=== PATIENT | male | born 1930 | race Caucasian/White ===

== ENCOUNTER 2017-03-31 11:09 | Inpatient (IN) ==
[2017-03-31 13:08] LABS: Basophils % 0.1 %; Eosinophils # 0.1 K/mcL (0.0-0.6); Eosinophils % 0.6 %; Hematocrit 29.6 % (37.5-50.1); Hemoglobin 9.9 g/dL (12.9-16.9); Immature Granulocytes % 0.7 % (0-4); Immature Platelets 2.7 % (1.1-6.1); Lymphocytes # 1.4 K/mcL (0.6-4.6); Lymphocytes % 9.3 %; Mean Corpuscular HGB Conc 33.4 g/dL (31.6-35.5); Mean Corpuscular Hemoglobin 29.5 pg (28.0-33.3); Mean Corpuscular Volume 88.1 fL (83.0-100.0); Mean Platelet Volume 9.8 fL (9.4-12.4); Monocytes # 1.5 K/mcL (0.0-1.3); Monocytes % 9.7 %; Neutrophils # 12.2 K/mcL (1.6-8.9); Platelet Count 415 K/mcL (140-400); Red Blood Count 3.36 M/mcL (4.19-5.50); Red Cell Distribution Width 13.6 % (11.5-14.5); Segmented Neutrophils % 79.6 %
[2017-03-31 13:19] LABS: BUN/Creatinine Ratio 28 (6-26); Blood Urea Nitrogen 31 mg/dL (8-26); Calcium 9.9 mg/dL (8.6-10.8); Carbon Dioxide 22 mEq/L (19-29); Chloride 105 mEq/L (98-109); Glucose 104 mg/dL (70-99); Osmolality,Calculated 299 (280-300); Potassium 3.4 mEq/L (3.5-4.5); Sodium 141 mEq/L (136-145); eGFR For African Americans > 60 (> 60); eGFR For Non-African Americans > 60 (> 60)
[2017-03-31] MEDS ORDERED: Piperacillin/Tazobactam 4.5 GM in D5% in Water (Mini-Bag+) 100 ML IVPB ONE (13:25)
[2017-03-31] MEDS ORDERED: Vancomycin 1,000 MG in D5% in Water 250 ML IVPB ONE ×2 (13:25→16:00)
--- NOTE | 2017-03-31 13:31 | Emergency Department Note ---
Disposition Clinical Impression: Anemia Qualifiers: Anemia type: unspecified type Qualified Code(s): D64.9 - Anemia, unspecified Left lower lobe pneumonia Qualifiers: Pneumonia type: aspiration pneumonia Aspiration pneumonia type: unspecified Qualified Code(s): J69.0 - Pneumonitis due to inhalation of food and vomit Disposition: Admitted As Inpatient Condition: Fair Referrals: Heriberto Cerrato DO [Primary Care Provider] - Forms: ED Satisfaction Letter Time of Disposition: 15:48 SOB HPI - General Chief Complaint: ED Shortness of Breath/Dyspnea Stated Complaint: worsening pneumonia Time Seen by Provider: 03/31/17 11:18 Source: patient, family Limitations: no limitations Nursing Notes Reviewed: Yes Vital Signs Reviewed: Yes - History of Present Illness Was diagnosed with pneumonia and I did review that record and was prescribed Levaquin and did receive an injection and I did review the record which showed a prescription also for Biaxin however the patient and his daughter state is not taking that medication. He does have worsening shortness of breath, cough productive of green sputum, left-sided chest pain and this is in the location of the pneumonia no complaint of hemoptysis and the patient does state he has some bilateral lower leg swelling which is ongoing. No fevers documented with thermometer however the daughter said he did feel warm several days ago. Daughter and patient both 89 confusion. Social history: Patient is a smoker but has not smoked in several days - Related Data Home Medications Medication Instructions Recorded Confirmed Baclofen 20 mg PO BID PRN 07/05/15 03/31/17 Lisinopril [Zestril] 10 mg PO DAILY 07/05/15 03/31/17 Simvastatin [Zocor] 40 mg PO HS 07/05/15 03/31/17 Diclofenac Sodium [Voltaren] 50 mg PO BID 10/22/16 03/31/17 Esomeprazole Magnesium [Nexium] 40 mg PO DAILY 02/05/17 03/31/17 Albuterol Sulfate [Albuterol 2 puff IH QID PRN 03/31/17 03/31/17 Inhaler] Ascorbate Calcium [Vitamin C] 500 mg PO BID 03/31/17 03/31/17 Divalproex (24 HR) [Depakote ER 250 mg PO DAILY 03/31/17 03/31/17 (24 HR)] Ferrous Gluconate 324 mg PO BID 03/31/17 03/31/17 Terbinafine HCl [Athlete's Foot] 1 appl TP BID 03/31/17 03/31/17 Allergies Allergy/AdvReac Type Severity Reaction Status Date / Time No Known Allergies Allergy Verified 03/26/17 11:35 Review of Systems: Constitutional: No fever Vision: No blurred vision ENT: No rhinorrhea Respiratory: + cough Allergic: No allergies : No blood in urine GI: No blood in stool Hematologic: No bruising Dermatologic: No skin rash Musculoskeletal: No pain in the extremities Neuro: No numbness of the extremities Past Medical History - Past Medical History Medical history: Reports: hypertension Surgical history: Reports: orthopedic, other (Right shoulder arthroscopy) Psychiatric history: Reports: no psych history - Social History Smoking Status: Current every day smoker Smokeless Tobacco Status: No Alcohol use: Reports: none Drug use: Reports: none Physical Exam CONSTITUTIONAL: Alert and oriented X3, well-nourished, well appearing, in no apparent distress HEAD: Normocephalic; atraumatic. EYES: PERRL, no scleral icterus. NOSE: The nose is normal in appearance without rhinorrhea RESP: Normal chest excursion with respiration; breath sounds and e with bilateral lower lung sounds rhonchi but no wheezing. The lung sounds are symmetric. Normal appearance of the chest CARD: Regular rhythm, without murmurs, rub or gallop ABD: Non-distended; non-tender, soft,without rigidity, rebound or guarding SKIN: Normal for age and race; warm and dry; no apparent lesions EXTREMITIES: Pulses are 2 plus and equal times 4 extremities, no peripheral edema or calf muscle pain. - General Limitations: no limitations General appearance: alert, in no apparent distress Course Vital Signs Temperature 97.9 F 03/31/17 11:17 Pulse Rate 80 03/31/17 11:17 Respiratory Rate 22 03/31/17 11:17 Blood Pressure 138/73 03/31/17 11:17 O2 Sat by Pulse Oximetry 93 03/31/17 11:17 Temperature 97.9 F 03/31/17 11:17 Pulse Rate 84 03/31/17 15:20 Respiratory Rate 15 03/31/17 15:20 Blood Pressure 140/67 03/31/17 15:20 O2 Sat by Pulse Oximetry 94 03/31/17 15:20 Oxygen Delivery Oxygen Delivery Room Air Shortness of Breath/Dyspnea - MDM Narrative Medical decision making narrative: Patient does have leukocytosis and a x-ray showing a left lower lobe infiltrate. The patient when I examined the sputum in the room does have some hemostasis which is green sputum which is blood-tinged and for that reason a CT scan will be done looking for confirmation that there is no pulmonary embolism, mass, parapneumonic effusion. I did review the EKG showed normal sinus rhythm with a rate of 98 frequent PVCs without acute ischemic change. Patient will be admitted to the hospital. I did start him on Rocephin and Zithromax for failure of outpatient therapy for community acquired pneumonia 1331 Patient does have a leukocytosis but the lactate level was not elevated. The patient does have some mild anemia 9.9 hemoglobin. CTA does show a small parapneumonic effusion and I did discuss this with interventional radiology who feels that a drain would not be helpful at this time as the parapneumonic effusion is very small. The patient will be admitted. Case was discussed with the hospitalist accepted the patient for admission [id number] - Medical Records Medical records reviewed: Yes I reviewed the patient's medical records. - Lab Data Lab results reviewed: Yes I reviewed the patient's lab results. Result diagrams: 03/31/17 12:55 03/31/17 12:55 Lab Results 03/31/17 03/31/17 03/31/17 Range/Units 11:55 11:55 12:55 WBC 15.4 H (4.3-11.1) K/mcL RBC 3.36 L (4.19-5.50) M/mcL Hgb 9.9 L (12.9-16.9) g/dL Hct 29.6 L (37.5-50.1) % MCV 88.1 D (83.0-100.0) fL MCH 29.5 (28.0-33.3) pg MCHC 33.4 (31.6-35.5) g/dL RDW 13.6 (11.5-14.5) % Plt Count 415 H (140-400) K/mcL MPV 9.8 (9.4-12.4) fL Immature Gran % 0.7 (0-4) % Seg Neutrophils % 79.6 % Lymphocytes % 9.3 % Monocytes % 9.7 % Eosinophils % 0.6 % Basophils % 0.1 % Neutrophils # 12.2 H (1.6-8.9) K/mcL Lymphocytes # 1.4 (0.6-4.6) K/mcL Monocytes # 1.5 H (0.0-1.3) K/mcL Eosinophils # 0.1 (0.0-0.6) K/mcL Basophils # 0.0 (0.0-0.2) K/mcL Immature Plt Fraction 2.7 (1.1-6.1) % Sodium (136-145) mEq/L Potassium (3.5-4.5) mEq/L Chloride (98-109) mEq/L Carbon Dioxide (19-29) mEq/L BUN (8-26) mg/dL Creatinine (0.72-1.25) mg/dL Est GFR ( Amer) (> 60) Est GFR (Non-Af Amer) (> 60) BUN/Creatinine Ratio (6-26) Glucose (70-99) mg/dL Calculated Osmolality (280-300) Lactic Acid (0.5-2.2) mmol/L Calcium (8.6-10.8) mg/dL Troponin I 0.01 (0-0.03) ng/mL B-Natriuretic Peptide (0-100) pg/mL Specimen Rejected MCV Delta 03/31/17 03/31/17 03/31/17 Range/Units 12:55 12:55 12:55 WBC (4.3-11.1) K/mcL RBC (4.19-5.50) M/mcL Hgb (12.9-16.9) g/dL Hct (37.5-50.1) % MCV (83.0-100.0) fL MCH (28.0-33.3) pg MCHC (31.6-35.5) g/dL RDW (11.5-14.5) % Plt Count (140-400) K/mcL MPV (9.4-12.4) fL Immature Gran % (0-4) % Seg Neutrophils % % Lymphocytes % % Monocytes % % Eosinophils % % Basophils % % Neutrophils # (1.6-8.9) K/mcL Lymphocytes # (0.6-4.6) K/mcL Monocytes # (0.0-1.3) K/mcL Eosinophils # (0.0-0.6) K/mcL Basophils # (0.0-0.2) K/mcL Immature Plt Fraction (1.1-6.1) % Sodium 141 (136-145) mEq/L Potassium 3.4 L (3.5-4.5) mEq/L Chloride 105 (98-109) mEq/L Carbon Dioxide 22 (19-29) mEq/L BUN 31 H (8-26) mg/dL Creatinine 1.10 (0.72-1.25) mg/dL Est GFR ( Amer) > 60 (> 60) Est GFR (Non-Af Amer) > 60 (> 60) BUN/Creatinine Ratio 28 H (6-26) Glucose 104 H (70-99) mg/dL Calculated Osmolality 299 (280-300) Lactic Acid 1.2 (0.5-2.2) mmol/L Calcium 9.9 (8.6-10.8) mg/dL Troponin I (0-0.03) ng/mL B-Natriuretic Peptide 146 H (0-100) pg/mL Specimen Rejected - Radiology Data Radiology results reviewed: Yes I reviewed the patient's radiology results. Critical Care Time Critical Care Time: No
[2017-03-31] MEDS ORDERED: 0.9 % Sodium Chloride 500 ML IVC ONE (14:34)
[2017-03-31] MEDS ORDERED: Potassium Chloride Elixir 20 MEQ/15 ML UDC PO ONE (15:40)
[2017-03-31] MEDS ORDERED: Ondansetron 4 MG/2 ML VIAL IVP PRN (17:33)
[2017-03-31] MEDS ORDERED: Naloxone 0.4 MG/ML INJ IVP PRN (17:33)
[2017-03-31] MEDS ORDERED: Baclofen 10 MG TABLET PO PRN (17:37)
[2017-03-31] MEDS ORDERED: Albuterol 2.5 MG/3 ML NEBULIZER IH PRN (17:37)
--- NOTE | 2017-03-31 17:40 | Internal Med History&Physical ---
Date of Encounter: 03/31/17 Time of Encounter: 17:39 Assessment and Plan (1) Left lower lobe pneumonia Current visit: Yes Status: Acute Presents with leukocytosis and cough and weakness, noted to have left lower lobe Pneumonia with small parapneumonic effusion on chest XRay and CTA chest. CT also shows copious secretions in the left lower airways, suspicious for aspiration. Failed oral antibiotics; received IV Vancomycin and Zosyn in the ER; will continue IV Cefepime and Zosyn. F/up blood cultures, send urine Legionella and Strep pneumo Ag and sputum culture. Supportive care, supplemental O2 as needed. Qualifiers: Pneumonia type: due to unspecified organism Qualified Code(s): J18.1 - Lobar pneumonia, unspecified organism (2) Essential hypertension Current visit: Yes Status: Chronic (3) Hyperlipidemia Current visit: Yes Status: Chronic continue statin. Qualifiers: Hyperlipidemia type: unspecified Qualified Code(s): E78.5 - Hyperlipidemia , unspecified (4) Depression Current visit: Yes Status: Chronic Qualifiers: Depression Type: unspecified Qualified Code(s): F32.9 - Major depressive disorder, single episode, unspecified (5) Mitral regurgitation Current visit: Yes Status: Chronic Echocardiogram from 03/26/17 shows preserved EF, severe MR. Follows with Cardiology as outpatient. Qualifiers: Cardiac valve disease etiology: etiology unspecified Qualified Code(s): I34.0 - Nonrheumatic mitral (valve) insufficiency (6) Anemia Current visit: Yes Status: Chronic continue Ferrous gluconate supplements. Qualifiers: Anemia type: iron deficiency Iron deficiency anemia type: unspecified iron deficiency Qualified Code(s): D50.9 - Iron deficiency anemia, unspecified (7) Tobacco abuse Current visit: Yes Status: Chronic patient not motivated to quit smoking at this time; declines Nicotine transdermal patch. Internal Medicine - H&P: HPI Chief complaint: Cough, weakness Admitted From: Emergency Dept Plans for Post Hospital Care: Home History of present illness: Mr. Blanco is a 86 year old male with h/o- HTN, HL presents with c/o- worsening cough and weakness. Patient lives alone but has family and neighbours checking in on him. He was seen in Urgent Care last week for generalized weakness, productive cough, nausea and vomiting and was diagnosed with Pneumonia after a chest XRay and sent home on antibiotics. He did complete a course of Levaquin, However he continued to feel lousy and sick, with nausea and bilious vomiting and persistent hacking cough with yellowish sputum, associated with left rib pain since yesterday. No reported fever but did have chills. No falls. Past Med Surg Social Fam HX - Past Medical History Medical history: COPD, hyperlipidemia, hypertension, valvular heart disease ( severe MR) Psychiatric history: depression - Past Surgical History Surgical History: orthopedic, other - Social History Smoking Status: Current every day smoker Packs per day: 1 and a half Smokeless Tobacco Status: No Alcohol use: none Drug use: none Occupational status: retired Current living situation: Home Activity Level: Uses cane/walker Recent Out of Country Travel Within the Last 8 Weeks: No Exposure or Possible Exposure to Illness During Travel: No - Family History Mother Hx Family Cardiac Disorders: Yes (Afib) Sister Hx Family Cardiac Disorders: Yes Internal Medicine - H&P: Meds Baclofen 20 mg PO BID PRN 07/05/15 [History] Lisinopril [Zestril] 10 mg PO DAILY 07/05/15 [History] Simvastatin [Zocor] 40 mg PO HS 07/05/15 [History] Diclofenac Sodium [Voltaren] 50 mg PO BID 10/22/16 [History] Esomeprazole Magnesium [Nexium] 40 mg PO DAILY 02/05/17 [History] Albuterol Sulfate [Albuterol Inhaler] 2 puff IH QID PRN 03/31/17 [History] Ascorbate Calcium [Vitamin C] 500 mg PO BID 03/31/17 [History] Divalproex (24 HR) [Depakote ER (24 HR)] 250 mg PO DAILY 03/31/17 [History] Ferrous Gluconate 324 mg PO BID 03/31/17 [History] Terbinafine HCl [Athlete's Foot] 1 appl TP BID 03/31/17 [History] 3 Allergy/AdvReac Type Severity Reaction Status Date / Time No Known Allergies Allergy Verified 03/26/17 11:35 All Systems PM: A 10-system review of systems was performed and is negative for pertinent findings except as documented above in the HPI. - Constitutional Constitutional: chills, lethargy, malaise, weakness - EENT Eyes: no change in vision, no discharge, no pain, no photophobia Ears: no ear discharge, no ear pain, no tinnitus Nose, mouth and throat: no dysphagia, no nasal discharge, no neck pain, no sore throat - Cardiovascular Cardiovascular ROS IM: dyspnea, no chest pain, no diaphoresis, no lightheadedness, no palpitations, no syncope - Respiratory Respiratory: cough, dyspnea, pain on inspiration, excessive phlegm production - Gastrointestinal Gastrointestinal: nausea, vomiting - Musculoskeletal Musculoskeletal ROS IM: no numbness, no tingling - Integumentary Integumentary IM: no rash, no unusual bruising - Neurological Neurological ROS: no confusion, no convulsions, no focal weakness, no numbness, no tingling, no tremor(s) - Hematologic/Lymphatic Hematologic/Lymphatic: no easy bruising - Constitutional Vitals: Temp Pulse Resp BP Pulse Ox 98.3 F 69 18 149/64 91 03/31/17 16:55 03/31/17 16:55 03/31/17 16:55 03/31/17 16:55 03/31/17 16:55 General appearance: Present: cachectic, mild distress, A&O X 3, answers questions appropriately - Respiratory Respiratory exam: Present: rales (coarse breath sounds B/L; coarse crepts at left base). Absent: accessory muscle use, rhonchi, wheezes - Cardiovascular Cardiovascular exam: Present: RRR, +S1, +S2. Absent: diastolic murmur, gallop, rubs, systolic murmur - GI/Abdominal GI/Abdominal exam: Present: normal bowel sounds, soft, no peritoneal signs. Absent: distended, tenderness - Extremities Exam Extremities exam: Present: full ROM, warm, radial pulses palpable and symmetrical. Absent: calf tenderness, cyanotic, pedal edema - Neurological Exam Neurological exam: Present: CN II-XII intact, oriented X3, no focal deficits. Absent: pronater drift, facial droop, speech deficit - Skin Skin exam: Present: dry, intact Internal Med - H&P Results - Labs CBC & Chem 7: 04/01/17 04:44 04/01/17 04:44
[2017-03-31] MEDS ORDERED: 0.9 % Sodium Chloride 1,000 ML IVC SCH (17:45)
[2017-03-31] MEDS ORDERED: Vancomycin 1,000 MG in D5% in Water 250 ML IVPB SCH (18:00)
[2017-03-31] MEDS ORDERED: Cefepime HCl 2,000 MG in D5% in Water (Mini-Bag+) 100 ML IVPB SCH (18:00)
[2017-03-31] MEDS: Ascorbic Acid 500 MG TABLET PO SCH (20:35)
--- NOTE | 2017-03-31 21:57 | Electrocardiograph Report ---
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
[2017-03-31] MEDS: Ipratropium/Albuterol Neb 3 ML IH SCH (22:03)
[2017-03-31] MEDS: *HR* Heparin 5,000 UNIT/ML VIAL SQ SCH (23:28)
[2017-04-01] MEDS: Ipratropium/Albuterol Neb 3 ML IH SCH ×4 (04:00→22:05)
[2017-04-01 05:18] LABS: Basophils % 0.2 %; Eosinophils # 0.2 K/mcL (0.0-0.6); Eosinophils % 1.1 %; Hematocrit 29.1 % (37.5-50.1); Hemoglobin 9.5 g/dL (12.9-16.9); Lymphocytes # 2.7 K/mcL (0.6-4.6); Lymphocytes % 16.7 %; Mean Corpuscular HGB Conc 32.6 g/dL (31.6-35.5); Mean Corpuscular Hemoglobin 29.1 pg (28.0-33.3); Mean Corpuscular Volume 89.3 fL (83.0-100.0); Mean Platelet Volume 10.3 fL (9.4-12.4); Monocytes # 1.7 K/mcL (0.0-1.3); Monocytes % 10.8 %; Neutrophils # 11.1 K/mcL (1.6-8.9); Platelet Count 410 K/mcL (140-400); Red Blood Count 3.26 M/mcL (4.19-5.50); Red Cell Distribution Width 13.7 % (11.5-14.5); Segmented Neutrophils % 70.2 %
[2017-04-01 05:29] LABS: BUN/Creatinine Ratio 23 (6-26); Blood Urea Nitrogen 23 mg/dL (8-26); Calcium 9.2 mg/dL (8.6-10.8); Carbon Dioxide 24 mEq/L (19-29); Chloride 109 mEq/L (98-109); Glucose 125 mg/dL (70-99); Magnesium 1.7 mg/dL (1.6-2.6); Osmolality,Calculated 299 (280-300); Potassium 3.7 mEq/L (3.5-4.5); Sodium 142 mEq/L (136-145); eGFR For African Americans > 60 (> 60); eGFR For Non-African Americans > 60 (> 60)
[2017-04-01] MEDS: *HR* Heparin 5,000 UNIT/ML VIAL SQ SCH ×2 (09:40→15:46)
[2017-04-01] MEDS: Divalproex (24 HR) 250 MG TABLET PO SCH (09:40)
[2017-04-01] MEDS: Ascorbic Acid 500 MG TABLET PO SCH ×2 (09:41→20:04)
[2017-04-01] MEDS: Cefepime HCl 2,000 MG in D5% in Water (Mini-Bag+) 100 ML IVPB SCH ×2 (11:28→21:35)
[2017-04-01] MEDS ORDERED: Vancomycin 1,000 MG in D5% in Water 250 ML IVPB SCH (15:00)
[2017-04-01] MEDS ORDERED: Vancomycin 750 MG in D5% in Water 250 ML IVPB SCH (15:00)
--- NOTE | 2017-04-01 15:27 | Internal Med Progress Note ---
Date of Encounter: 04/01/17 Time of Encounter: 15:00 - Assessment and plan (1) Left lower lobe pneumonia Current Visit: Yes Status: Acute Assessment and plan: persistent cough, pleuritic pain, leukocytosis; improved O2 requirements; preliminary sputum shows GPC; urine Legionella and Strep pneumo Ag negative. F/ up blood cultures. Continue IV hydration, IV Zosyn and Cefepime for possible aspiration and CAP. Hold Vancomycin for now. Supportive care. Pain control with PRN Tylenol. Not requiring supplemental O2. PT evaluation noted, recommend [facility]. Qualifiers: Pneumonia type: due to unspecified organism Qualified Code(s): J18.1 - Lobar pneumonia, unspecified organism (2) Essential hypertension Current Visit: Yes Status: Chronic Assessment and plan: BP well-controlled. Continue home meds. (3) Hyperlipidemia Current Visit: Yes Status: Chronic Assessment and plan: continue statin. Qualifiers: Hyperlipidemia type: unspecified Qualified Code(s): E78.5 - Hyperlipidemia , unspecified (4) Depression Current Visit: Yes Status: Chronic Qualifiers: Depression Type: unspecified Qualified Code(s): F32.9 - Major depressive disorder, single episode, unspecified (5) Mitral regurgitation Current Visit: Yes Status: Chronic Qualifiers: Cardiac valve disease etiology: etiology unspecified Qualified Code(s): I34.0 - Nonrheumatic mitral (valve) insufficiency (6) Anemia Current Visit: Yes Status: Chronic Qualifiers: Anemia type: iron deficiency Iron deficiency anemia type: unspecified iron deficiency Qualified Code(s): D50.9 - Iron deficiency anemia, unspecified (7) Tobacco abuse Current Visit: Yes Status: Chronic - Subjective Interval history: Reports left rib pain from persistent cough; no shortness of breath, able to participate in PT; no fever/chills. - Constitutional Vitals: Temp Pulse Resp BP Pulse Ox 98.0 F 80 18 128/58 91 04/01/17 12:35 04/01/17 12:35 04/01/17 12:35 04/01/17 12:35 04/01/17 12:35 General appearance: Present: cachectic, A&O X 3, answers questions appropriately - Respiratory Respiratory exam: Present: CTAB, rales (bibasal rales, left>right). Absent: accessory muscle use, rhonchi, wheezes - Cardiovascular Cardiovascular exam: Present: RRR, +S1, +S2, tachycardia. Absent: diastolic murmur, gallop, rubs, systolic murmur - GI/Abdominal GI/Abdominal exam: Present: normal bowel sounds, soft, no peritoneal signs. Absent: distended, tenderness - Extremities Exam Extremities exam: Present: full ROM, warm, radial pulses palpable and symmetrical. Absent: calf tenderness, cyanotic, pedal edema - Neurological Exam Neurological exam: Present: CN II-XII intact, oriented X3, no focal deficits. Absent: pronater drift, facial droop, speech deficit Internal Medicine: Result - Labs CBC & Chem 7: 04/01/17 04:44 04/01/17 04:44 Labs: Short CBC 04/01/17 Range/Units 04:44 WBC 15.9 H (4.3-11.1) K/mcL Hgb 9.5 L (12.9-16.9) g/dL Hct 29.1 L (37.5-50.1) % Plt Count 410 H (140-400) K/mcL Neutrophils # 11.1 H (1.6-8.9) K/mcL BMP 04/01/17 04:44 Sodium 142 Potassium 3.7 Chloride 109 Carbon Dioxide 24 BUN 23 Creatinine 0.99 Glucose 125 H Calcium 9.2 Consult Discharge Plan - Plan Referrals: Heriberto Cerrato DO [Primary Care Provider] -
[2017-04-01] MEDS: Acetaminophen 325 MG TABLET PO PRN (15:46)
[2017-04-01] MEDS: Piperacillin/Tazobactam 3.375 GM in D5% in Water (Mini-Bag+) 100 ML IVPB SCH (16:03)
[2017-04-02] MEDS: *HR* Heparin 5,000 UNIT/ML VIAL SQ SCH ×4 (00:02→23:54)
[2017-04-02] MEDS: Piperacillin/Tazobactam 3.375 GM in D5% in Water (Mini-Bag+) 100 ML IVPB SCH ×2 (00:02→08:24)
[2017-04-02] MEDS: Ipratropium/Albuterol Neb 3 ML IH SCH ×4 (04:11→22:13)
[2017-04-02 07:14] LABS: Basophils # 0.1 K/mcL (0.0-0.2); Basophils % 0.4 %; Eosinophils # 0.4 K/mcL (0.0-0.6); Eosinophils % 3.3 %; Hemoglobin 9.1 g/dL (12.9-16.9); Immature Granulocytes % 1.8 % (0-4); Lymphocytes # 1.7 K/mcL (0.6-4.6); Lymphocytes % 13.5 %; Mean Corpuscular HGB Conc 33.7 g/dL (31.6-35.5); Mean Corpuscular Hemoglobin 29.4 pg (28.0-33.3); Mean Corpuscular Volume 87.1 fL (83.0-100.0); Mean Platelet Volume 10.1 fL (9.4-12.4); Monocytes # 1.6 K/mcL (0.0-1.3); Monocytes % 12.3 %; Neutrophils # 8.8 K/mcL (1.6-8.9); Platelet Count 415 K/mcL (140-400); Red Cell Distribution Width 13.9 % (11.5-14.5); Segmented Neutrophils % 68.7 %
[2017-04-02 07:40] LABS: BUN/Creatinine Ratio 24 (6-26); Blood Urea Nitrogen 22 mg/dL (8-26); Carbon Dioxide 26 mEq/L (19-29); Chloride 108 mEq/L (98-109); Glucose 110 mg/dL (70-99); Osmolality,Calculated 296 (280-300); Potassium 3.5 mEq/L (3.5-4.5); Sodium 141 mEq/L (136-145); eGFR For African Americans > 60 (> 60); eGFR For Non-African Americans > 60 (> 60)
[2017-04-02] MEDS: Ascorbic Acid 500 MG TABLET PO SCH ×2 (08:23→21:18)
[2017-04-02] MEDS: Divalproex (24 HR) 250 MG TABLET PO SCH (08:23)
[2017-04-02] MEDS: Cefepime HCl 2,000 MG in D5% in Water (Mini-Bag+) 100 ML IVPB SCH (08:23)
[2017-04-02] MEDS: Acetaminophen 325 MG TABLET PO PRN ×2 (08:45→16:17)
--- NOTE | 2017-04-02 11:02 | Internal Med Progress Note ---
Date of Encounter: 04/02/17 Time of Encounter: 10:59 - Assessment and plan (1) Left lower lobe pneumonia Current Visit: Yes Status: Acute Assessment and plan: Possible aspiration pneumonia present upon admission Discontinue Zosyn and cefepime at day 2, vancomycin discontinued Start Unasyn IV, speech pathology consult CT scan of the chest showed: 1. No pulmonary embolism. 2. Left lower lobe pneumonia, with small parapneumonic effusion. There are a large amount of secretions within the left lower lobe bronchus, and aspiration is likely. 3. 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 4. There is a 1.3 cm right hilar lymph node, which is likely reactive. A follow-up CT in 6 months is suggested to document stability/resolution. 5. Large hiatal hernia. Qualifiers: Pneumonia type: due to unspecified organism Qualified Code(s): J18.1 - Lobar pneumonia, unspecified organism (2) Essential hypertension Current Visit: Yes Status: Chronic Assessment and plan: Continue lisinopril. (3) Hyperlipidemia Current Visit: Yes Status: Chronic Assessment and plan: continue statin. Qualifiers: Hyperlipidemia type: unspecified Qualified Code(s): E78.5 - Hyperlipidemia , unspecified (4) Depression Current Visit: Yes Status: Chronic Assessment and plan: Stable Qualifiers: Depression Type: unspecified Qualified Code(s): F32.9 - Major depressive disorder, single episode, unspecified (5) Mitral regurgitation Current Visit: Yes Status: Chronic Qualifiers: Cardiac valve disease etiology: etiology unspecified Qualified Code(s): I34.0 - Nonrheumatic mitral (valve) insufficiency (6) Tobacco abuse Current Visit: Yes Status: Chronic - Subjective Interval history: Patient still feeling short of breath, very tired and winded, complains of left sided chest pain likely pleuritic, no fevers overnight, no nausea or vomiting, no diarrhea - Constitutional Vitals: Temp Pulse Resp BP Pulse Ox 98.6 F 86 18 107/69 92 04/02/17 10:43 04/02/17 10:43 04/02/17 10:49 04/02/17 10:43 04/02/17 10:49 General appearance: Present: cachectic, A&O X 3, answers questions appropriately - Head Head exam: Present: atraumatic, normocephalic - Eye Eye exam: Present: PERRL, conjuntiva pink, sclera anicteric Pupils: Present: PERRL - Neck Neck exam general surgery: Present: supple, trachea midline. Absent: lymphadenopathy - Respiratory Respiratory exam: Present: decreased breath sounds (very diminished very diminished breath sounds with minimal fine crackles in the left base and minimal diffuse wheezing), CTAB. Absent: accessory muscle use, rales, rhonchi, wheezes - Cardiovascular Cardiovascular exam: Present: RRR, +S1, +S2. Absent: diastolic murmur, gallop, rubs, systolic murmur - GI/Abdominal GI/Abdominal exam: Present: normal bowel sounds, soft, no peritoneal signs. Absent: distended, tenderness - Extremities Exam Extremities exam: Present: warm, radial pulses palpable and symmetrical. Absent : calf tenderness, cyanotic, pedal edema - Neurological Exam Neurological exam: Present: CN II-XII intact, oriented X3, no focal deficits. Absent: pronater drift, facial droop, speech deficit - Skin Skin exam: Present: dry, intact Internal Medicine: Result - Labs CBC & Chem 7: 04/02/17 06:39 04/02/17 06:39 Labs: Short CBC 04/02/17 Range/Units 06:39 WBC 12.8 H (4.3-11.1) K/mcL Hgb 9.1 L (12.9-16.9) g/dL Hct 27.0 L (37.5-50.1) % Plt Count 415 H (140-400) K/mcL Neutrophils # 8.8 (1.6-8.9) K/mcL BMP 04/02/17 06:39 Sodium 141 Potassium 3.5 Chloride 108 Carbon Dioxide 26 BUN 22 Creatinine 0.92 Glucose 110 H Calcium 9.0 Consult Discharge Plan - Plan Referrals: Heriberto Cerrato DO [Primary Care Provider] -
[2017-04-02] MEDS: Ampicillin/Sulbactam 1,500 MG in 0.9 % Sodium Chloride Mini Bag 100 ML IVPB SCH ×4 (11:27→23:54)
[2017-04-02] MEDS: MethylPREDNISolone 40 MG/ML VIAL IVP SCH ×3 (11:27→23:54)
[2017-04-02] MEDS ORDERED: Aminoglycoside Consult 1 EACH MC ONE (15:38)
[2017-04-02 18:29] LABS: BUN/Creatinine Ratio 22 (6-26); Blood Urea Nitrogen 24 mg/dL (8-26); Calcium 9.1 mg/dL (8.6-10.8); Carbon Dioxide 23 mEq/L (19-29); Chloride 108 mEq/L (98-109); Glucose 216 mg/dL (70-99); Magnesium 1.7 mg/dL (1.6-2.6); Osmolality,Calculated 303 (280-300); Potassium 3.8 mEq/L (3.5-4.5); Sodium 141 mEq/L (136-145); eGFR For African Americans > 60 (> 60); eGFR For Non-African Americans > 60 (> 60)
[2017-04-03] MEDS: Ipratropium/Albuterol Neb 3 ML IH SCH ×4 (03:56→22:11)
[2017-04-03] MEDS: Ampicillin/Sulbactam 1,500 MG in 0.9 % Sodium Chloride Mini Bag 100 ML IVPB SCH ×4 (06:13→23:59)
[2017-04-03] MEDS: Acetaminophen 325 MG TABLET PO PRN (06:20)
[2017-04-03 08:03] LABS: Hematocrit 25.2 % (37.5-50.1); Hemoglobin 8.4 g/dL (12.9-16.9); Mean Corpuscular HGB Conc 33.3 g/dL (31.6-35.5); Mean Corpuscular Hemoglobin 28.9 pg (28.0-33.3); Mean Corpuscular Volume 86.6 fL (83.0-100.0); Platelet Count 434 K/mcL (140-400); Red Blood Count 2.91 M/mcL (4.19-5.50)
[2017-04-03 08:16] LABS: BUN/Creatinine Ratio 36 (6-26); Blood Urea Nitrogen 31 mg/dL (8-26); Carbon Dioxide 27 mEq/L (19-29); Chloride 110 mEq/L (98-109); Glucose 141 mg/dL (70-99); Osmolality,Calculated 303 (280-300); Potassium 3.9 mEq/L (3.5-4.5); Sodium 142 mEq/L (136-145); eGFR For African Americans > 60 (> 60); eGFR For Non-African Americans > 60 (> 60)
[2017-04-03] MEDS ORDERED: Lactulose Oral Soln 20 GM/30 ML UDC PO PRN (08:32)
--- NOTE | 2017-04-03 08:44 | Internal Med Progress Note ---
Date of Encounter: 04/03/17 Time of Encounter: 08:35 - Assessment and plan (1) Left lower lobe pneumonia Current Visit: Yes Status: Acute Assessment and plan: Possible aspiration due to emesis. Does not seem to have an element of dysphagia. Improving clinically. Continue IV Unasyn- day 2 (received IV Cefepime and Zosyn for 2 days). Blood and sputum cultures remain negative. Urine Legionella and Strep pneumo Ag negative. Requiring 2L/min via NC, will need home O2 evaluation prior to disharge. Anticipate discharge in am. Qualifiers: Pneumonia type: due to unspecified organism Qualified Code(s): J18.1 - Lobar pneumonia, unspecified organism (2) Essential hypertension Current Visit: Yes Status: Chronic Assessment and plan: BP noted to be well-controlled. Continue home meds. (3) Hyperlipidemia Current Visit: Yes Status: Chronic Assessment and plan: continue statin. Qualifiers: Hyperlipidemia type: unspecified Qualified Code(s): E78.5 - Hyperlipidemia , unspecified (4) Depression Current Visit: Yes Status: Chronic Qualifiers: Depression Type: unspecified Qualified Code(s): F32.9 - Major depressive disorder, single episode, unspecified (5) Mitral regurgitation Current Visit: Yes Status: Chronic Qualifiers: Cardiac valve disease etiology: etiology unspecified Qualified Code(s): I34.0 - Nonrheumatic mitral (valve) insufficiency (6) Anemia Current Visit: Yes Status: Chronic Qualifiers: Anemia type: iron deficiency Iron deficiency anemia type: unspecified iron deficiency Qualified Code(s): D50.9 - Iron deficiency anemia, unspecified (7) Tobacco abuse Current Visit: Yes Status: Chronic (8) Constipation Current Visit: Yes Status: Acute Assessment and plan: Will start Senna Plus along with PRN Lactulose; monitor closely. Qualifiers: Constipation type: slow transit constipation Qualified Code(s): K59.01 - Slow transit constipation - Subjective Interval history: Reports constipation for the last 8 days, requests for a laxative. c/o- lower abdominal discomfort and pain. No chest pain, improving cough, improved dyspnea. - Constitutional Vitals: Temp Pulse Resp BP Pulse Ox 97.9 F 74 16 134/49 98 04/03/17 06:58 04/03/17 06:58 04/03/17 06:58 04/03/17 06:58 04/03/17 06:58 General appearance: Present: cachectic, A&O X 3, answers questions appropriately - Respiratory Respiratory exam: Present: CTAB (coarse breath sounds B/L). Absent: accessory muscle use, rales, rhonchi, wheezes - Cardiovascular Cardiovascular exam: Present: RRR, +S1, +S2. Absent: diastolic murmur, gallop, rubs, systolic murmur - GI/Abdominal GI/Abdominal exam: Present: distended (dull to percussion), normal bowel sounds , soft (mild tenderness in lower abdomen), no peritoneal signs. Absent: tenderness - Extremities Exam Extremities exam: Present: full ROM, warm, radial pulses palpable and symmetrical. Absent: calf tenderness, cyanotic, pedal edema - Neurological Exam Neurological exam: Present: CN II-XII intact, oriented X3, no focal deficits. Absent: pronater drift, facial droop, speech deficit Internal Medicine: Result - Labs CBC & Chem 7: 04/03/17 07:34 04/03/17 07:34 Labs: Short CBC 04/03/17 Range/Units 07:34 WBC 16.3 H (4.3-11.1) K/mcL Hgb 8.4 L (12.9-16.9) g/dL Hct 25.2 L (37.5-50.1) % Plt Count 434 H (140-400) K/mcL BMP 04/02/17 04/03/17 18:05 07:34 Sodium 141 142 Potassium 3.8 3.9 Chloride 108 110 H Carbon Dioxide 23 27 BUN 24 31 H Creatinine 1.08 0.87 Glucose 216 H 141 H Calcium 9.1 9.0 Consult Discharge Plan - Plan Referrals: Heriberto Cerrato DO [Primary Care Provider] - (web request sent on 04/02/17)
[2017-04-03] MEDS: *HR* Heparin 5,000 UNIT/ML VIAL SQ SCH ×3 (09:11→23:59)
[2017-04-03] MEDS: Divalproex (24 HR) 250 MG TABLET PO SCH (09:12)
[2017-04-03] MEDS: MethylPREDNISolone 40 MG/ML VIAL IVP SCH ×2 (09:12→15:44)
[2017-04-03] MEDS: Ascorbic Acid 500 MG TABLET PO SCH ×2 (09:12→21:14)
[2017-04-04] MEDS: Ipratropium/Albuterol Neb 3 ML IH SCH ×2 (03:45→11:38)
[2017-04-04 04:11] LABS: Basophils % 0.2 %; Hematocrit 24.5 % (37.5-50.1); Hemoglobin 8.1 g/dL (12.9-16.9); Immature Granulocytes % 0.9 % (0-4); Lymphocytes # 1.6 K/mcL (0.6-4.6); Lymphocytes % 7.4 %; Mean Corpuscular HGB Conc 33.1 g/dL (31.6-35.5); Mean Corpuscular Hemoglobin 29.2 pg (28.0-33.3); Mean Corpuscular Volume 88.4 fL (83.0-100.0); Mean Platelet Volume 10.4 fL (9.4-12.4); Monocytes # 1.3 K/mcL (0.0-1.3); Monocytes % 5.8 %; Neutrophils # 18.6 K/mcL (1.6-8.9); Platelet Count 443 K/mcL (140-400); Red Blood Count 2.77 M/mcL (4.19-5.50); Segmented Neutrophils % 85.7 %
[2017-04-04] MEDS: MethylPREDNISolone 40 MG/ML VIAL IVP SCH (06:59)
[2017-04-04] MEDS: Ampicillin/Sulbactam 1,500 MG in 0.9 % Sodium Chloride Mini Bag 100 ML IVPB SCH ×2 (06:59→13:50)
[2017-04-04] MEDS: Ascorbic Acid 500 MG TABLET PO SCH (07:51)
[2017-04-04] MEDS: Divalproex (24 HR) 250 MG TABLET PO SCH (07:51)
[2017-04-04] MEDS: *HR* Heparin 5,000 UNIT/ML VIAL SQ SCH (07:52)
--- NOTE | 2017-04-04 08:30 | Discharge Summary ---
Date of Encounter: 04/04/17 Time of Encounter: 08:27 - Discharge Diagnosis (1) Left lower lobe pneumonia Priority: Primary Status: Acute Qualifiers: Pneumonia type: due to unspecified organism Qualified Code(s): J18.1 - Lobar pneumonia, unspecified organism (2) Essential hypertension Priority: Secondary Status: Chronic (3) Hyperlipidemia Priority: Secondary Status: Chronic Qualifiers: Hyperlipidemia type: unspecified Qualified Code(s): E78.5 - Hyperlipidemia , unspecified (4) Depression Priority: Secondary Status: Chronic Qualifiers: Depression Type: unspecified Qualified Code(s): F32.9 - Major depressive disorder, single episode, unspecified (5) Mitral regurgitation Priority: Secondary Status: Chronic Qualifiers: Cardiac valve disease etiology: etiology unspecified Qualified Code(s): I34.0 - Nonrheumatic mitral (valve) insufficiency (6) Anemia Priority: Secondary Status: Chronic Qualifiers: Anemia type: iron deficiency Iron deficiency anemia type: unspecified iron deficiency Qualified Code(s): D50.9 - Iron deficiency anemia, unspecified (7) Tobacco abuse Priority: Secondary Status: Chronic (8) Constipation Priority: Primary Status: Resolved Qualifiers: Constipation type: slow transit constipation Qualified Code(s): K59.01 - Slow transit constipation - Discharge Medications Prescriptions: Amoxicillin/Clavulanate [Augmentin] 875 mg PO BIDWM #10 tablet PredniSONE [Deltasone] 20 mg PO DAILY #10 tablet Home Medications: Baclofen 20 mg PO BID PRN 07/05/15 [History] Lisinopril [Zestril] 10 mg PO DAILY 07/05/15 [History] Simvastatin [Zocor] 40 mg PO HS 07/05/15 [History] Diclofenac Sodium [Voltaren] 50 mg PO BID 10/22/16 [History] Esomeprazole Magnesium [Nexium] 40 mg PO DAILY 02/05/17 [History] Albuterol Sulfate [Albuterol Inhaler] 2 puff IH QID PRN 03/31/17 [History] Ascorbate Calcium [Vitamin C] 500 mg PO BID 03/31/17 [History] Divalproex (24 HR) [Depakote ER (24 HR)] 250 mg PO DAILY 03/31/17 [History] Ferrous Gluconate 324 mg PO BID 03/31/17 [History] Terbinafine HCl [Athlete's Foot] 1 appl TP BID 03/31/17 [History] Amoxicillin/Clavulanate [Augmentin] 875 mg PO BIDWM #10 tablet 04/04/17 [Rx] PredniSONE [Deltasone] 20 mg PO DAILY #10 tablet 04/04/17 [Rx] Allergies/Adverse Reactions: 3 Allergy/AdvReac Type Severity Reaction Status Date / Time No Known Allergies Allergy Verified 03/26/17 11:35 Date of admission: 03/31/17 17:47 Primary care physician: Heriberto Cerrato DO Consults: 04/02/17 10:59 Consult to Speech Therapy [CONS] Routine Comment: Evaluate, develop and implement POC Reason for Consult: aspiration Call Completed: No Discharging clinician: Sarahi Quintero Anticipated date of discharge: 04/04/17 - Patient Status Disposition: Home Health Service Condition: Fair Functional capacity at discharge: uses cane/walker Overall status at discharge: patient is progressing back to baseline - Discharge Instructions Instructions: Chronic Hypertension (DC), Anemia (GEN), Pneumonia (DC) Follow Up With: Heriberto Cerrato DO [Primary Care Provider] - (web request sent on 04/02/17) Additional Instructions: F/up with PCP in 1-2 weeks - Diet and Activity Activity: as per physical therapy, wear oxygen at all times Diet: low fat, low cholesterol, low salt diet Hospital course: Mr. Blanco is a 86 year old male with the above medical problems, admitted with worsening nausea, emesis, cough and pleuritic chest pain. Patient was treated with oral Levaquin and when necessary albuterol as outpatient, failed to improve. Chest x-ray showed evidence of left lower lobe pneumonia with small parapneumonic effusion. Patient was started on broad-spectrum IV antibiotics along with supplemental oxygen, bronchodilators. Blood and sputum cultures remained negative. Urine legionella and strep pneumoniae antigen negative. He was also started on IV steroids due to wheezing, dyspnea and hypoxia. Patient significantly improved on this regimen and currently tolerates oral diet , saturating well on 2 L/m supplemental oxygen via nasal cannula. Physical and occupational therapy evaluation was done and recommend home health services. He is noted to have worsening leukocytosis, which is likely related to the use of IV steroids. Home oxygen evaluation was done and patient was noted to be desaturating upon ambulation, he will benefit from 2 L/m oxygen via nasal cannula continuously and he is noted to be mobile at home. He is otherwise medically stable for discharge. - Time Spent with Patient Total time spent providing and/or coordinating discharge services: Greater than 30 minutes (40 min) - Constitutional Vitals: Temp Pulse Resp BP Pulse Ox 97.6 F 62 22 113/51 93 04/04/17 07:20 04/04/17 07:20 04/04/17 07:20 04/04/17 07:20 04/04/17 07:20 General appearance: Present: cachectic, A&O X 3, answers questions appropriately - Respiratory Respiratory exam: Present: CTAB (coarse breath sounds B/L), rales (left basal crepts). Absent: accessory muscle use, rhonchi, wheezes
--- NOTE | 2017-04-04 08:32 | Physician Discharge Referral ---
Home Health/Hosp Referral Info Transfer to: Home Health Attending Provider: Sarahi Quintero Provider in Charge Post Discharge: PCP - Diagnosis (1) Left lower lobe pneumonia Priority: Primary Status: Acute (2) Essential hypertension Priority: Secondary Status: Chronic (3) Hyperlipidemia Priority: Secondary Status: Chronic (4) Depression Priority: Secondary Status: Chronic (5) Mitral regurgitation Priority: Secondary Status: Chronic (6) Anemia Priority: Secondary Status: Chronic (7) Tobacco abuse Priority: Secondary Status: Chronic (8) Constipation Priority: Primary Status: Resolved - Respiratory Orders Oxygen / L per min (2L/min viA nc) Smoking Cessation: Smoking cessation has been advised. For more information, call the [place] Tobacco Quit Line at 0-012-FCRD-NOW. - Diet/Nutrition Diet/Nutrition Orders: No Added Salt (XAVIER), Cardiac - Activity Activity Orders: Ambulate - Services Needed Following services are medically necessary services: Nursing, Physical Therapy, Occupational Therapy - Transfer Medications Prescriptions: Amoxicillin/Clavulanate [Augmentin] 875 mg PO BIDWM #10 tablet PredniSONE [Deltasone] 20 mg PO DAILY #10 tablet Home Medications: Baclofen 20 mg PO BID PRN 07/05/15 [History] Lisinopril [Zestril] 10 mg PO DAILY 07/05/15 [History] Simvastatin [Zocor] 40 mg PO HS 07/05/15 [History] Diclofenac Sodium [Voltaren] 50 mg PO BID 10/22/16 [History] Esomeprazole Magnesium [Nexium] 40 mg PO DAILY 02/05/17 [History] Albuterol Sulfate [Albuterol Inhaler] 2 puff IH QID PRN 03/31/17 [History] Ascorbate Calcium [Vitamin C] 500 mg PO BID 03/31/17 [History] Divalproex (24 HR) [Depakote ER (24 HR)] 250 mg PO DAILY 03/31/17 [History] Ferrous Gluconate 324 mg PO BID 03/31/17 [History] Terbinafine HCl [Athlete's Foot] 1 appl TP BID 03/31/17 [History] Amoxicillin/Clavulanate [Augmentin] 875 mg PO BIDWM #10 tablet 04/04/17 [Rx] PredniSONE [Deltasone] 20 mg PO DAILY #10 tablet 04/04/17 [Rx] Allergies/Adverse Reactions: 3 Allergy/AdvReac Type Severity Reaction Status Date / Time No Known Allergies Allergy Verified 03/26/17 11:35 Certification: Further, I certify that my clinical findings support that this patient is homebound (i.e. absences from home require considerable and taxing effort and are for medical reasons or jainism services or infrequently or short duration when for other reasons) because: Homebound Reason: Patient requires assistance of a person or device to safely leave home, Leaving home requires considerable and taxing effort due to condition Attestation: My signature below is to certify that this patient is under my care and that I, or nurse practitioner, or a physician's assistant shift supervisor working with me, has a face-to -face encounter with this patient.
[2017-04-04 10:46] VITALS: BP 116/61
[2017-04-04] MEDS ORDERED: MethylPREDNISolone 40 MG/ML VIAL IVP SCH ×2 (18:00)
--- NOTE | 2017-04-04 20:08 | Electrocardiograph Report ---
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
== END 2017-04-04 15:39 | disposition home health service (06) | DRG 190 ==
LOC: 2ANU 11:09 → EMEROO 11:09 → 2ANU 16:40 → SUATTDRO 17:47 → UNDODISIN 04-04 12:01
PROVIDERS: ADMIT Student in an Organized Health Care Education/Training Program; ATTEND Internal Medicine

== ENCOUNTER 2017-07-09 11:52 | Inpatient (IN) ==
[2017-07-09] MEDS ORDERED: 0.9 % Sodium Chloride 500 ML IVC ONE ×2 (12:17→13:09)
--- NOTE | 2017-07-09 12:18 | Emergency Department Note ---
Disposition Clinical Impression: Dehydration Left lower lobe pneumonia Qualifiers: Pneumonia type: due to unspecified organism Qualified Code(s): J18.1 - Lobar pneumonia, unspecified organism Disposition: Admitted As Inpatient Condition: Good Time of Disposition: 13:45 Nausea/Vomiting/Diarrhea HPI - General Chief complaint: ED Nausea/Vomiting/Diarrhea Stated complaint: diarrhea Time Seen by Provider: 07/09/17 12:03 Source: patient Mode of arrival: ambulatory Limitations: no limitations Nursing Notes Reviewed: Yes Vital Signs Reviewed: Yes - History of Present Illness HPI Narrative: Mr. Blanco is an 87-year-old man with a history of anemia, right inguinal hernia, severe COPD and recent superficial venous thrombosis who presents to the ED with 6 day history of watery diarrhea. He says that this diarrhea is watery in nature, is constant and he is having between 15 and 20 times per day. It is associated with cramping in his abdomen which is relieved by defecation. He says that he has never had anything like this before. The diarrhea is not bloody. He also is no foul odor associated with it. He has not had any fevers or chills. He is also not having any nausea or vomiting associated with this, and says that he has no trouble keeping fluids down orally. Patient does have a history of pneumonia approximately 3 months with antibiotics, however has not had any since then. He denies any knowledge of any history of the C. difficile infection. He is not having any other acute complaints. - Related Data Home Medications Medication Instructions Recorded Confirmed Baclofen 20 mg PO BID PRN 07/05/15 07/01/17 Lisinopril [Zestril] 10 mg PO DAILY 07/05/15 07/01/17 Simvastatin [Zocor] 40 mg PO HS 07/05/15 07/01/17 Diclofenac Sodium [Voltaren] 50 mg PO BID 10/22/16 07/01/17 Esomeprazole Magnesium [Nexium] 40 mg PO DAILY 02/05/17 07/01/17 Albuterol Sulfate [Albuterol 2 puff IH QID PRN 03/31/17 07/01/17 Inhaler] Divalproex (24 HR) [Depakote ER 250 mg PO DAILY 03/31/17 07/01/17 (24 HR)] Ferrous Gluconate 324 mg PO BID 03/31/17 07/01/17 Aspirin 81 mg PO DAILY 05/23/17 07/01/17 Cholecalciferol (Vitamin D3) 5,000 unit PO DAILY 05/23/17 07/01/17 [Vitamin D3] Previous Rx's Medication Instructions Recorded Ascorbic Acid [Vitamin C] 1 tab PO DAILY #30 tablet 06/03/17 Ferrous Sulfate [Iron] 1 tab PO DAILY #30 tablet 06/03/17 PredniSONE [Deltasone] 1 tab PO AD #49 tablet 07/01/17 Apixaban [Eliquis] 5 mg PO BID #60 tablet 07/06/17 Apixaban [Eliquis] 10 mg PO BID #14 tablet 07/06/17 Allergies Allergy/AdvReac Type Severity Reaction Status Date / Time No Known Allergies Allergy Verified 07/09/17 11:55 Constitutional: Denies: fever, chills, weakness, night sweats Eyes: Denies: vision change ENT ED: Denies: congestion Cardiovascular: Denies: chest pain, syncope Respiratory: Reports: cough, sputum production Gastrointestinal: Reports: abdominal pain, diarrhea. Denies: nausea, vomiting, melena, hematochezia Genitourinary: Denies: urgency, dysuria, frequency Musculoskeletal: Denies: back pain Integumentary: Denies: rash Neurological: Denies: headache, weakness Hematological/Lymphatic: Denies: easy bleeding Past Medical History - Past Medical History Medical history: Reports: arthritis, cancer, COPD, coronary artery disease, GERD , hyperlipidemia, hypertension Surgical history: Reports: orthopedic, other Psychiatric history: Reports: depression - Social History Smoking Status: Current every day smoker Smokeless Tobacco Status: No Alcohol use: Reports: rarely Drug use: Reports: none Physical Exam Gen.: Vitals noted. No acute distress. AAOx3 HEENT: Normocephalic, atraumatic. Mucous membranes somewhat dry Cardiac: RRR, no murmur rubs or clicks, +S1/S2 Pulmonary: b/l rales and rhonchi noted on exam Abdomen: soft, mild generalized tenderness, BS noted, no guarding. R. Reducible inguinal hernia on exam Extremities: no BLE edema, nontender calf, no cyanosis or clubbing Psych: Appropriate mood and behavior - General Limitations: no limitations General appearance: alert Course Vital Signs Temperature 0 F L 07/09/17 11:53 Pulse Rate 81 07/09/17 11:53 Respiratory Rate 20 07/09/17 11:53 Blood Pressure 115/69 07/09/17 11:53 O2 Sat by Pulse Oximetry 97 07/09/17 11:53 Temperature 0 F L 07/09/17 11:53 Pulse Rate 77 07/09/17 14:48 Respiratory Rate 16 07/09/17 14:48 Blood Pressure 125/54 07/09/17 14:48 O2 Sat by Pulse Oximetry 96 07/09/17 14:48 Oxygen Delivery Oxygen Delivery Room Air Nausea/Vomiting/Diarrhea - MDM Narrative Medical decision making narrative: I reviewed this patient's labs and imaging. Since the patient's arrival he has not had any episodes of diarrhea and has not able to offer us a stool sample. Still, given his history of pneumonia approximately 90 days ago that was treated with antibiotics, I did order a sample to rule out C. difficile colitis. Additionally, the patient did have a hypokalemia of 3.0 and appeared clinically dry with increased skin turgor on examination. Based on this I did start the patient on 500 mL normal saline for hydration purposes. The patient also on exam demonstrated diffuse crackles in the bases of his lungs. Chest x- ray showed new development of recurrent pneumonia seemingly bilaterally. On labs the patient did have a leukocytosis with a count in the 22Ks and lactic acid of 2.0, so at that time I did increase the bolus dose to 2000mL, and I started vancomycin and Zosyn and Levaquin due to possible HCAP. On arrival the patient did have a borderline tachycardia with minimal hypotension, however he did not appear clinically toxic and it did not appear that he was septic at that time. I spoke to the patient and family about admission to the hospital for treatment, and they agreed to come into the hospital. I did speak with the hospitalist who agreed to accept the patient and asked that I order CT of the abdomen and pelvis with contrast which I did. - Medical Records Medical records reviewed: Yes I reviewed the patient's medical records. - Lab Data Lab results reviewed: Yes I reviewed the patient's lab results. Result diagrams: 07/09/17 12:37 07/09/17 12:37 Lab Results 07/09/17 07/09/17 07/09/17 Range/Units 12:37 12:37 12:37 WBC 22.9 H (4.3-11.1) K/mcL RBC 4.25 (4.19-5.50) M/mcL Hgb 11.6 L (12.9-16.9) g/dL Hct 37.4 L (37.5-50.1) % MCV 88.0 (83.0-100.0) fL MCH 27.3 L (28.0-33.3) pg MCHC 31.0 L (31.6-35.5) g/dL RDW 16.6 H (11.5-14.5) % Plt Count 553 H (140-400) K/mcL MPV 9.6 (9.4-12.4) fL Immature Gran % 0.9 (0-4) % Seg Neutrophils % 75.5 % Lymphocytes % 11.4 % Monocytes % 10.7 % Eosinophils % 1.4 % Basophils % 0.1 % Neutrophils # 17.3 H (1.6-8.9) K/mcL Lymphocytes # 2.6 (0.6-4.6) K/mcL Monocytes # 2.5 H (0.0-1.3) K/mcL Eosinophils # 0.3 (0.0-0.6) K/mcL Basophils # 0.0 (0.0-0.2) K/mcL Sodium 141 (136-145) mEq/L Potassium 3.0 L (3.5-5.1) mEq/L Chloride 107 (98-107) mEq/L Carbon Dioxide 25 (23-29) mEq/L BUN 39 H (8-23) mg/dL Creatinine 1.15 (0.70-1.30) mg/dL Est GFR ( Amer) > 60 (> 60) Est GFR (Non-Af Amer) > 60 (> 60) BUN/Creatinine Ratio 34 H (6-26) Glucose 100 (70-105) mg/dL Calculated Osmolality 301 H (280-300) Lactic Acid 2.0 (0.5-2.2) mmol/L Calcium 8.8 (8.6-10.3) mg/dL Troponin I (< 0.04) ng/mL Urine Color (Yellow) Urine Clarity (Clear) Urine pH (5.0-8.0) pH Units Ur Specific [place] (1.010-1.025) Urine Protein (Neg-Trace) mg/dL Urine Glucose (UA) (Normal) mg/dL Urine Ketones (Negative) mg/dL Urine Blood (Negative) Urine Nitrite (Negative) Urine Bilirubin (Negative) Urine Urobilinogen (Normal) mg/dL Ur Leukocyte Esterase (Negative) Ur Culture Indicated? (NO) 07/09/17 07/09/17 Range/Units 12:37 13:00 WBC (4.3-11.1) K/mcL RBC (4.19-5.50) M/mcL Hgb (12.9-16.9) g/dL Hct (37.5-50.1) % MCV (83.0-100.0) fL MCH (28.0-33.3) pg MCHC (31.6-35.5) g/dL RDW (11.5-14.5) % Plt Count (140-400) K/mcL MPV (9.4-12.4) fL Immature Gran % (0-4) % Seg Neutrophils % % Lymphocytes % % Monocytes % % Eosinophils % % Basophils % % Neutrophils # (1.6-8.9) K/mcL Lymphocytes # (0.6-4.6) K/mcL Monocytes # (0.0-1.3) K/mcL Eosinophils # (0.0-0.6) K/mcL Basophils # (0.0-0.2) K/mcL Sodium (136-145) mEq/L Potassium (3.5-5.1) mEq/L Chloride (98-107) mEq/L Carbon Dioxide (23-29) mEq/L BUN (8-23) mg/dL Creatinine (0.70-1.30) mg/dL Est GFR ( Amer) (> 60) Est GFR (Non-Af Amer) (> 60) BUN/Creatinine Ratio (6-26) Glucose (70-105) mg/dL Calculated Osmolality (280-300) Lactic Acid (0.5-2.2) mmol/L Calcium (8.6-10.3) mg/dL Troponin I < 0.03 (< 0.04) ng/mL Urine Color Yellow (Yellow) Urine Clarity Clear (Clear) Urine pH 6.0 (5.0-8.0) pH Units Ur Specific [place] 1.022 (1.010-1.025) Urine Protein Negative (Neg-Trace) mg/dL Urine Glucose (UA) Normal (Normal) mg/dL Urine Ketones Negative (Negative) mg/dL Urine Blood Negative (Negative) Urine Nitrite Negative (Negative) Urine Bilirubin Negative (Negative) Urine Urobilinogen Normal (Normal) mg/dL Ur Leukocyte Esterase Negative (Negative) Ur Culture Indicated? NO (NO) - Radiology Data Radiology results reviewed: Yes I reviewed the patient's radiology results. - EKG Data EKG attestation: Yes I reviewed and interpreted this EKG.
[2017-07-09 12:46] LABS: Basophils % 0.1 %; Eosinophils # 0.3 K/mcL (0.0-0.6); Eosinophils % 1.4 %; Hematocrit 37.4 % (37.5-50.1); Hemoglobin 11.6 g/dL (12.9-16.9); Immature Granulocytes % 0.9 % (0-4); Lymphocytes # 2.6 K/mcL (0.6-4.6); Lymphocytes % 11.4 %; Mean Corpuscular Hemoglobin 27.3 pg (28.0-33.3); Mean Platelet Volume 9.6 fL (9.4-12.4); Monocytes # 2.5 K/mcL (0.0-1.3); Monocytes % 10.7 %; Neutrophils # 17.3 K/mcL (1.6-8.9); Platelet Count 553 K/mcL (140-400); Red Blood Count 4.25 M/mcL (4.19-5.50); Red Cell Distribution Width 16.6 % (11.5-14.5); Segmented Neutrophils % 75.5 %
--- NOTE | 2017-07-09 12:46 | Emergency Department Note ---
START Narrative - START START: I examined this patient and my medical decision-making was reviewed with the Resident Physician. I agree with the documented findings, disposition and treatment plan as described except to the extent set forth below. 87 year old male presents to the ED wit complaints of dirrhea for the past 5 days, NBNB, No recent history of travelling, suspicios foods. He had antibioics about 3 months ago for pnueonia and is curently beign treated for a bloody dsyscrias by [facility]. Not currenlty on chem or radiation PAtinet denies fevers, abdominal pain. States that the diarrhea is watery and brown without foul smell. WE will do lab work and CXR to re-eval resolition of pniemoin and a lactic acid and hydrate him with IVF.
[2017-07-09 13:02] LABS: BUN/Creatinine Ratio 34 (6-26); Blood Urea Nitrogen 39 mg/dL (8-23); Calcium 8.8 mg/dL (8.6-10.3); Carbon Dioxide 25 mEq/L (23-29); Chloride 107 mEq/L (98-107); Glucose 100 mg/dL (70-105); Osmolality,Calculated 301 (280-300); Sodium 141 mEq/L (136-145); eGFR For African Americans > 60 (> 60); eGFR For Non-African Americans > 60 (> 60)
[2017-07-09] MEDS ORDERED: 0.9 % Sodium Chloride 1,000 ML IVC ONE (13:07)
[2017-07-09 13:28] LABS: Bilirubin,Urine Negative (Negative); Blood,Urine Negative (Negative); Clarity,Urine Clear (Clear); Color,Urine Yellow (Yellow); Glucose,Urine (UA) Normal (Normal); Ketones,Urine Negative (Negative); Leukocyte Esterase,Urine Negative (Negative); Nitrite,Urine Negative (Negative); Protein,Urine Negative (Neg-Trace); Specific Gravity,Urine 1.022 (1.010-1.025); Urobilinogen,Urine Normal (Normal)
[2017-07-09] MEDS ORDERED: Piperacillin/Tazobactam 3.375 GM in D5% in Water (Mini-Bag+) 100 ML IVPB ONE (13:33)
[2017-07-09] MEDS ORDERED: Levofloxacin 750 MG/150 ML 750 MG/150 ML BAG IVPB ONE (13:41)
[2017-07-09] MEDS ORDERED: Ondansetron 4 MG/2 ML VIAL IVP PRN (14:54)
[2017-07-09] MEDS ORDERED: Acetaminophen 325 MG TABLET PO PRN (14:54)
[2017-07-09] MEDS ORDERED: Naloxone 0.4 MG/ML INJ IVP PRN (14:54)
[2017-07-09] MEDS ORDERED: 0.9 % Sodium Chloride w KCl 20 MEQ/1,000 ML MLS IVC SCH (15:00)
--- NOTE | 2017-07-09 15:19 | Internal Med History&Physical ---
<Mar Harris S - Last Filed: 07/09/17 15:13> Date of Encounter: 07/09/17 Time of Encounter: 15:14 Assessment and Plan (1) Diarrhea Current visit: Yes Status: Acute Stool for C. difficile pending collection Reviewed CT of abdomen and pelvis with nothing acute on exam Vancomycin and Flagyl pending further lab results Blood cultures pending Qualifiers: Diarrhea type: unspecified type Qualified Code(s): R19.7 - Diarrhea, unspecified (2) Hypokalemia due to loss of potassium Current visit: Yes Status: Acute Replacement and recheck Secondary to diarrhea (3) Essential hypertension Current visit: Yes Status: Chronic (4) Hyperlipidemia Current visit: Yes Status: Chronic Qualifiers: Hyperlipidemia type: unspecified Qualified Code(s): E78.5 - Hyperlipidemia , unspecified (5) Depression Current visit: Yes Status: Chronic Qualifiers: Depression Type: unspecified Qualified Code(s): F32.9 - Major depressive disorder, single episode, unspecified (6) Tobacco abuse Current visit: Yes Status: Acute Cessation education NicoDerm patch (7) COPD (chronic obstructive pulmonary disease) Current visit: Yes Status: Acute Duo nebs Oxygen to maintain sats greater than 88% as patient uses oxygen at home on an as -needed basis Qualifiers: COPD type: emphysema Emphysema type: unspecified Qualified Code(s): J43.9 - Emphysema, unspecified (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 Blanco is a 87 year old male who presented to the emergency room for evaluation of 15-20 loose diarrhea stools watery in nature for the last 5-6 days. The patient denies nausea, vomiting, chest pain, shortness of breath, dizziness, or syncope. He does have a chronic cough. He states he has been his appetite has been okay but is not drinking as much as normal. He stated he did fall 2 weeks ago at home he just was turning around and found himself on the floor. He uses a walker at home. His son was in the room and stated he lives in a duplex and the neighbor is very helpful and checks on his father frequently. He states they live close as well as a sister and they have not met their home is on a frequent occasion as well. C. difficile stool collection is pending. Blood cultures 2 were obtained. He was given Zosyn and vancomycin and Levaquin in the ER. He had a CT of the abdomen and pelvis that showed no acute findings in the abdomen and stable pulmonary fibrosis and COPD changes in the lung bases. The patient continues to smoke 1 pack a day of cigarettes. He utilizes oxygen 2-4 L as needed home especially at night. His history is significant for COPD, anemia, right inguinal hernia, superficial venous thrombosis, CAD, GERD, hypertension, hyperlipidemia, and depression. The patient also desires to be a full CODE STATUS. The patient and son understand the patient will be admitted and have no questions regarding the plan of care. Past Med Surg Social Fam HX - Past Medical History Medical history: arthritis, cancer, COPD, coronary artery disease, GERD, hyperlipidemia, hypertension, other (Pulmonary fibrosis) Psychiatric history: depression - Past Surgical History Surgical History: orthopedic, other - Social History Smoking Status: Current every day smoker Smokeless Tobacco Status: No Alcohol use: rarely Drug use: none - Family History Mother Hx Family Cardiac Disorders: Yes (Afib) Sister Hx Family Cardiac Disorders: Yes Internal Medicine - H&P: Meds Baclofen 20 mg PO BID PRN 07/05/15 [History] Lisinopril [Zestril] 10 mg PO DAILY 07/05/15 [History] Simvastatin [Zocor] 40 mg PO HS 07/05/15 [History] Diclofenac Sodium [Voltaren] 50 mg PO BID 10/22/16 [History] Esomeprazole Magnesium [Nexium] 40 mg PO DAILY 02/05/17 [History] Albuterol Sulfate [Albuterol Inhaler] 2 puff IH QID PRN 03/31/17 [History] Divalproex (24 HR) [Depakote ER (24 HR)] 250 mg PO DAILY 03/31/17 [History] Ferrous Gluconate 324 mg PO BID 03/31/17 [History] Aspirin 81 mg PO DAILY 05/23/17 [History] Cholecalciferol (Vitamin D3) [Vitamin D3] 5,000 unit PO DAILY 05/23/17 [History] Ascorbic Acid [Vitamin C] 1 tab PO DAILY #30 tablet 06/03/17 [Rx] Ferrous Sulfate [Iron] 1 tab PO DAILY #30 tablet 06/03/17 [Rx] Apixaban [Eliquis] 5 mg PO BID #60 tablet 07/06/17 [Rx] Apixaban [Eliquis] 10 mg PO BID #14 tablet 07/06/17 [Rx] Amitriptyline [Elavil] 25 mg PO HS 07/09/17 [History] PredniSONE [Deltasone] 1 tab PO BID 07/09/17 [History] 3 Allergy/AdvReac Type Severity Reaction Status Date / Time No Known Allergies Allergy Verified 07/09/17 11:55 All Systems PM: A 10-system review of systems was performed and is negative for pertinent findings except as documented above in the HPI. - Constitutional Constitutional: falls, no chills, no fever(s), no night sweats - EENT Eyes: no change in vision, no discharge, no pain, no photophobia Ears: no ear discharge, no ear pain, no tinnitus Nose, mouth and throat: dry mouth, no dysphagia, no nasal discharge, no neck pain, no sore throat - Cardiovascular Cardiovascular ROS IM: no chest pain, no diaphoresis, no dyspnea, no lightheadedness, no palpitations, no syncope - Respiratory Respiratory: cough, no dyspnea, no wheezing, no excessive phlegm production - Gastrointestinal Gastrointestinal: abdominal pain, change in bowel habits, diarrhea, no hematemesis, no hematochezia, no melena, no nausea, no vomiting - Musculoskeletal Musculoskeletal ROS IM: no numbness, no tingling - Integumentary Integumentary IM: no rash, no unusual bruising - Neurological Neurological ROS: no confusion, no convulsions, no focal weakness, no numbness, no tingling, no tremor(s) - Psychiatric Psychiatric: as per HPI - Hematologic/Lymphatic Hematologic/Lymphatic: no easy bruising - Constitutional Vitals: Temp Pulse Resp BP Pulse Ox 0 F L 77 16 125/54 96 07/09/17 11:53 07/09/17 14:48 07/09/17 14:48 07/09/17 14:48 07/09/17 14:48 General appearance: Present: A&O X 3, pleasant, no acute distress, answers questions appropriately - Head Head exam: Present: atraumatic, normocephalic - Eye Eye exam: Present: normal appearance, conjuntiva pink, sclera anicteric - Neck Neck exam general surgery: Present: supple, trachea midline. Absent: lymphadenopathy - Respiratory Respiratory exam: Present: decreased breath sounds. Absent: accessory muscle use, rales, respiratory distress, rhonchi, wheezes Additional comments: Basilar crackles - Cardiovascular Cardiovascular exam: Present: RRR, +S1, +S2. Absent: diastolic murmur, gallop, rubs, systolic murmur - GI/Abdominal GI/Abdominal exam: Present: normal bowel sounds, soft, tenderness, no peritoneal signs. Absent: distended Additional comments: Large right inguinal hernia - Extremities Exam Extremities exam: Present: warm. Absent: calf tenderness, cyanotic, pedal edema - Neurological Exam Neurological exam: Present: oriented X3, no focal deficits. Absent: pronater drift, facial droop, speech deficit - Skin Skin exam: Present: dry, intact, warm Internal Med - H&P Results - Labs CBC & Chem 7: 07/09/17 12:37 07/09/17 12:37 <Yoni Clark P - Last Filed: 07/10/17 19:45> Date of Encounter: 07/10/17 Internal Medicine - H&P: HPI History of present illness: Mr. Blanco is a 87 year old male All Systems PM: A 10-system review of systems was performed and is negative for pertinent findings except as documented above in the HPI. - Constitutional Vitals: Temp Pulse Resp BP Pulse Ox 98.6 F 105 19 123/65 94 07/10/17 18:36 07/10/17 18:36 07/10/17 18:36 07/10/17 18:36 07/10/17 18:36 Internal Med - H&P Results - Labs CBC & Chem 7: 07/10/17 03:50 07/10/17 03:50 Labs: Short CBC 07/10/17 Range/Units 03:50 WBC 12.9 H (4.3-11.1) K/mcL Hgb 8.4 L D (12.9-16.9) g/dL Hct 26.7 L (37.5-50.1) % Plt Count 363 (140-400) K/mcL Neutrophils # 7.9 (1.6-8.9) K/mcL BMP 07/10/17 03:50 Sodium 140 Potassium 4.0 D Chloride 113 H Carbon Dioxide 23 BUN 32 H Creatinine 0.89 Glucose 98 Calcium 7.7 L - Attending Attestation I examined this patient and my medical decision-making was reviewed with the Resident Physician/CLINICAL DATA ABSTRACTOR. I agree with the documented findings, disposition and treatment plan as described except to the extent set forth below.
[2017-07-09] MEDS: Ipratropium/Albuterol Neb 3 ML IH SCH ×2 (16:36→21:54)
[2017-07-09] MEDS: Vancomycin 1,000 MG in D5% in Water 250 ML IVPB SCH (18:32)
[2017-07-09] MEDS: Apixaban 5 MG TABLET PO SCH (22:36)
[2017-07-09] MEDS: Divalproex (24 HR) 250 MG TABLET PO SCH (22:36)
[2017-07-10] MEDS: Ipratropium/Albuterol Neb 3 ML IH SCH ×4 (03:47→22:08)
[2017-07-10 04:00] LABS: Basophils % 0.1 %; Eosinophils # 0.4 K/mcL (0.0-0.6); Eosinophils % 3.2 %; Hematocrit 26.7 % (37.5-50.1); Immature Granulocytes % 0.8 % (0-4); Lymphocytes % 23.2 %; Mean Corpuscular HGB Conc 31.5 g/dL (31.6-35.5); Mean Corpuscular Hemoglobin 27.4 pg (28.0-33.3); Mean Platelet Volume 9.8 fL (9.4-12.4); Monocytes # 1.5 K/mcL (0.0-1.3); Monocytes % 11.7 %; Neutrophils # 7.9 K/mcL (1.6-8.9); Platelet Count 363 K/mcL (140-400); Red Blood Count 3.07 M/mcL (4.19-5.50); Red Cell Distribution Width 16.4 % (11.5-14.5)
[2017-07-10 04:02] LABS: Hemoglobin 8.4 g/dL (12.9-16.9)
[2017-07-10 04:03] LABS: INR 1.9; Prothrombin Time 20.3 Seconds (9.4-12.1)
[2017-07-10 04:06] LABS: Activated Partial Thrombo Time 31.7 Seconds (26.0-36.0)
[2017-07-10 04:22] LABS: BUN/Creatinine Ratio 36 (6-26); Blood Urea Nitrogen 32 mg/dL (8-23); Calcium 7.7 mg/dL (8.6-10.3); Carbon Dioxide 23 mEq/L (23-29); Chloride 113 mEq/L (98-107); Glucose 98 mg/dL (70-105); Magnesium 1.8 mg/dL (1.6-2.6); Osmolality,Calculated 297 (280-300); Phosphorous 2.4 mg/dL (2.7-4.5); Sodium 140 mEq/L (136-145); eGFR For African Americans > 60 (> 60); eGFR For Non-African Americans > 60 (> 60)
[2017-07-10] MEDS: Vancomycin 1,000 MG in D5% in Water 250 ML IVPB SCH (05:25)
[2017-07-10] MEDS ORDERED: Aminoglycoside Consult 1 EACH MC ONE (08:09)
[2017-07-10] MEDS: Apixaban 5 MG TABLET PO SCH ×2 (10:49→20:41)
[2017-07-10] MEDS: Divalproex (24 HR) 250 MG TABLET PO SCH (10:49)
[2017-07-10] MEDS: Ascorbic Acid 500 MG TABLET PO SCH (10:49)
[2017-07-10] MEDS: Aspirin 81 MG TAB.CHEW PO SCH (10:49)
[2017-07-10] MEDS: Nicotine 14 MG PATCH.TD24 TD SCH (10:50)
--- NOTE | 2017-07-10 12:52 | Internal Med Progress Note ---
Date of Encounter: 07/10/17 Time of Encounter: 12:49 - Assessment and plan (1) Viral gastroenteritis Current Visit: Yes Status: Acute Assessment and plan: Dehydration likely secondary to viral gastroenteritis No bowel movements since noon off 07/09/2017 Was not given oral vancomycin or Flagyl IV CT scan of the abdomen does not show any acute finding and does not demonstrate pneumonia Will avoid antibiotics at this point We will send a GI panel if the patient's diarrhea recurs (2) 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 Assessment and plan: The patient was seen by oncology on 07/01/2017 He was started on prednisone taper as follows: prednisone 20 mg by mouth 3 times a day for a week then 20 mg twice a day for 2 weeks with a slow taper We will resume prednisone 20 mg twice a day for now Monitor hemoglobin (3) Dehydration Current Visit: Yes Status: Acute (4) Diarrhea Current Visit: Yes Status: Acute Qualifiers: Diarrhea type: unspecified type Qualified Code(s): R19.7 - Diarrhea, unspecified (5) Hypokalemia due to loss of potassium Current Visit: Yes Status: Acute Assessment and plan: Repleted (6) IPF (idiopathic pulmonary fibrosis) Current Visit: Yes Status: Chronic (7) Essential hypertension Current Visit: Yes Status: Chronic (8) Tobacco abuse Current Visit: Yes Status: Acute Assessment and plan: Smoking cessation counseling - Subjective Interval history: The patient denies any abdominal pain, no fevers, has not had any bowel movements since yesterday at noon, has been more than 24 hours without diarrhea , mildly short of breath back to his baseline, no chest pain, no dysuria - Constitutional Vitals: Temp Pulse Resp BP Pulse Ox 97.7 F 72 15 124/51 97 07/10/17 11:49 07/10/17 11:49 07/10/17 11:49 07/10/17 11:49 07/10/17 11:49 General appearance: Present: A&O X 3, pleasant, no acute distress, answers questions appropriately - Head Head exam: Present: atraumatic, normocephalic - Eye Eye exam: Present: PERRL, conjuntiva pink, sclera anicteric Pupils: Present: PERRL - Neck Neck exam general surgery: Present: supple, trachea midline. Absent: lymphadenopathy - Respiratory Respiratory exam: Present: CTAB. Absent: accessory muscle use, rales, rhonchi, wheezes - Cardiovascular Cardiovascular exam: Present: RRR, +S1, +S2. Absent: diastolic murmur, gallop, rubs, systolic murmur - GI/Abdominal GI/Abdominal exam: Present: normal bowel sounds, soft, no peritoneal signs. Absent: distended, tenderness - Extremities Exam Extremities exam: Present: warm, radial pulses palpable and symmetrical. Absent : calf tenderness, cyanotic, pedal edema - Neurological Exam Neurological exam: Present: CN II-XII intact, oriented X3, no focal deficits. Absent: pronater drift, facial droop, speech deficit - Skin Skin exam: Present: dry, intact Internal Medicine: Result - Labs CBC & Chem 7: 07/10/17 03:50 07/10/17 03:50 Labs: Short CBC 07/10/17 Range/Units 03:50 WBC 12.9 H (4.3-11.1) K/mcL Hgb 8.4 L D (12.9-16.9) g/dL Hct 26.7 L (37.5-50.1) % Plt Count 363 (140-400) K/mcL Neutrophils # 7.9 (1.6-8.9) K/mcL BMP 07/10/17 03:50 Sodium 140 Potassium 4.0 D Chloride 113 H Carbon Dioxide 23 BUN 32 H Creatinine 0.89 Glucose 98 Calcium 7.7 L - ABG Interpretation ABG results: PT/INR, D-dimer PT 20.3 Seconds (9.4-12.1) H 07/10/17 03:50 - VTE Documentation of Mechanical Device: Graduated compression elastic hosiery Consult Discharge Plan - Plan Referrals: Heriberto Cerrato DO [Primary Care Provider] -
[2017-07-10] MEDS: predniSONE 20 MG TABLET PO SCH ×2 (17:44→17:46)
[2017-07-10] MEDS: 0.9 % Sodium Chloride 1,000 ML IVC SCH (17:46)
[2017-07-11 03:46] LABS: Hematocrit 27.5 % (37.5-50.1); Hemoglobin 8.7 g/dL (12.9-16.9); Mean Corpuscular HGB Conc 31.6 g/dL (31.6-35.5); Mean Corpuscular Hemoglobin 27.4 pg (28.0-33.3); Mean Corpuscular Volume 86.8 fL (83.0-100.0); Mean Platelet Volume 10.2 fL (9.4-12.4); Platelet Count 406 K/mcL (140-400); Red Blood Count 3.17 M/mcL (4.19-5.50); Red Cell Distribution Width 16.9 % (11.5-14.5)
[2017-07-11 04:08] LABS: BUN/Creatinine Ratio 31 (6-26); Blood Urea Nitrogen 22 mg/dL (8-23); Calcium 8.2 mg/dL (8.6-10.3); Carbon Dioxide 25 mEq/L (23-29); Chloride 109 mEq/L (98-107); Glucose 141 mg/dL (70-105); Osmolality,Calculated 296 (280-300); Potassium 4.4 mEq/L (3.5-5.1); Sodium 140 mEq/L (136-145); eGFR For African Americans > 60 (> 60); eGFR For Non-African Americans > 60 (> 60)
[2017-07-11] MEDS: Ipratropium/Albuterol Neb 3 ML IH SCH ×2 (04:33→10:07)
[2017-07-11 06:18] VITALS: BP 143/66
[2017-07-11] MEDS: 0.9 % Sodium Chloride 1,000 ML IVC SCH (08:19)
[2017-07-11] MEDS: Divalproex (24 HR) 250 MG TABLET PO SCH (08:20)
[2017-07-11] MEDS: predniSONE 20 MG TABLET PO SCH (08:20)
[2017-07-11] MEDS: Aspirin 81 MG TAB.CHEW PO SCH (08:20)
[2017-07-11] MEDS: Ascorbic Acid 500 MG TABLET PO SCH (08:20)
[2017-07-11] MEDS: Apixaban 5 MG TABLET PO SCH (08:20)
[2017-07-11] MEDS: Nicotine 14 MG PATCH.TD24 TD SCH (08:20)
--- NOTE | 2017-07-11 09:50 | Discharge Summary ---
Date of Encounter: 07/11/17 Time of Encounter: 09:40 - Discharge Diagnosis (1) Viral gastroenteritis Priority: Primary Status: Acute Comments: Dehydration likely secondary to viral gastroenteritis (2) Autoimmune hemolytic anemia Priority: Secondary Status: Chronic (3) Dehydration Priority: Primary Status: Acute (4) Diarrhea Priority: Primary Status: Acute Qualifiers: Diarrhea type: unspecified type Qualified Code(s): R19.7 - Diarrhea, unspecified (5) Hypokalemia due to loss of potassium Priority: Secondary Status: Acute (6) IPF (idiopathic pulmonary fibrosis) Priority: Secondary Status: Chronic (7) Essential hypertension Priority: Secondary Status: Chronic (8) Tobacco abuse Priority: Secondary Status: Acute - Discharge Medications Home Medications: Baclofen 20 mg PO BID PRN 07/05/15 [History] Lisinopril [Zestril] 10 mg PO DAILY 07/05/15 [History] Simvastatin [Zocor] 40 mg PO HS 07/05/15 [History] Diclofenac Sodium [Voltaren] 50 mg PO BID 10/22/16 [History] Esomeprazole Magnesium [Nexium] 40 mg PO DAILY 02/05/17 [History] Albuterol Sulfate [Albuterol Inhaler] 2 puff IH QID PRN 03/31/17 [History] Divalproex (24 HR) [Depakote ER (24 HR)] 250 mg PO DAILY 03/31/17 [History] Ferrous Gluconate 324 mg PO BID 03/31/17 [History] Aspirin 81 mg PO DAILY 05/23/17 [History] Cholecalciferol (Vitamin D3) [Vitamin D3] 5,000 unit PO DAILY 05/23/17 [History] Ascorbic Acid [Vitamin C] 1 tab PO DAILY #30 tablet 06/03/17 [Rx] Ferrous Sulfate [Iron] 1 tab PO DAILY #30 tablet 06/03/17 [Rx] Apixaban [Eliquis] 5 mg PO BID #60 tablet 07/06/17 [Rx] Apixaban [Eliquis] 10 mg PO BID #14 tablet 07/06/17 [Rx] Amitriptyline [Elavil] 25 mg PO HS 07/09/17 [History] PredniSONE [Deltasone] 1 tab PO BID 07/09/17 [History] Allergies/Adverse Reactions: 3 Allergy/AdvReac Type Severity Reaction Status Date / Time No Known Allergies Allergy Verified 07/09/17 11:55 Date of admission: 07/09/17 16:33 Primary care physician: Heriberto Cerrato DO Consults: 07/09/17 16:50 Consult to Continuous Still Operator [CONS] Routine Reason for SW Consult: Home O2 through [facility] as needed at 2L Was supposed to get set up with home health last d/ c but nobody ever showed up - Patient Status Disposition: Home, Self-Care Condition: Good Overall status at discharge: patient is progressing back to baseline - Discharge Instructions Follow Up With: Heriberto Cerrato DO [Primary Care Provider] - Additional Instructions: Follow-up with Dr. Guerra within the next 2 weeks. Continue prednisone taper as indicated by Dr. Guerra. May follow-up with surgery to consider right hernia repair - Diet and Activity Activity: increase activity as tolerated, wear oxygen at night Diet: low fat, low cholesterol Hospital course: Mr. Blanco is a 87 year old male with a past medical history of pulmonary fibrosis , hypertension, hyperlipidemia, GERD, CAD, COPD oxygen dependent 2-4 L as needed , right lower extremity superficial vein thrombosis, PUD, cardiomyopathy, proctitis, testosterone deficiency, right inguinal hernia, erectile dysfunction , tobacco abuse, cervical radiculitis, Autoimmune hemolytic anemia on prednisone followed by Dr. Guerra, who presented to the emergency room for evaluation of 15-20 loose diarrhea stools watery in nature for the last 5-6 days. The patient denied nausea, vomiting, chest pain, shortness of breath, dizziness, or syncope. He stated he did fall 2 weeks ago at home he just was turning around and found himself on the floor. He uses a walker at home. C. difficile stool collection was ordered by the patient did not have any bowel movement since admission. He was given Zosyn and vancomycin and Levaquin in the ER. He had a CT of the abdomen and pelvis that showed no acute findings in the abdomen and stable pulmonary fibrosis and COPD changes in the lung bases. Antibiotics were discontinue the patient remained stable. His white blood cell count decreased down to 13.4 from an initial value of 22.9. No fevers overnight. Potassium was repleted. Stable to be discharged home Time spent discussing smoking cessation with patient: 3 to 10 minutes - Time Spent with Patient Total time spent providing and/or coordinating discharge services: Greater than 30 minutes (40 min) - Constitutional Vitals: Temp Pulse Resp BP Pulse Ox 97.5 F L 75 15 143/66 94 07/11/17 06:16 07/11/17 06:16 07/11/17 06:16 07/11/17 06:16 07/11/17 06:16 General appearance: Present: A&O X 3, pleasant, no acute distress, answers questions appropriately Exam: - Head Head exam: Present: atraumatic, normocephalic - Eye Eye exam: Present: PERRL, conjuntiva pink, sclera anicteric Pupils: Present: PERRL - Neck Neck exam general surgery: Present: supple, trachea midline. Absent: lymphadenopathy - Respiratory Respiratory exam: Present: CTAB. Absent: accessory muscle use, rales, rhonchi, wheezes - Cardiovascular Cardiovascular exam: Present: RRR, +S1, +S2. Absent: diastolic murmur, gallop, rubs, systolic murmur - GI/Abdominal GI/Abdominal exam: Present: normal bowel sounds, soft, no peritoneal signs. Absent: distended, tenderness - Extremities Exam Extremities exam: Present: Right inguinal hernia not incarcerated, warm, radial pulses palpable and symmetrical. Absent: calf tenderness, cyanotic, pedal edema - Neurological Exam Neurological exam: Present: CN II-XII intact, oriented X3, no focal deficits. Absent: pronater drift, facial droop, speech deficit - Skin Skin exam: Present: dry, intact - VTE Documentation of Mechanical Device: Graduated compression elastic hosiery
--- NOTE | 2017-07-11 14:23 | Physician Discharge Referral ---
Home Health/Hosp Referral Info Transfer to: Home Health Provider in Charge Post Discharge: PCP - Diagnosis (1) Viral gastroenteritis Status: Acute (2) Autoimmune hemolytic anemia Status: Chronic (3) Dehydration Status: Acute (4) Diarrhea Status: Acute (5) Hypokalemia due to loss of potassium Status: Acute (6) IPF (idiopathic pulmonary fibrosis) Status: Chronic (7) Essential hypertension Status: Chronic (8) Tobacco abuse Status: Acute - Respiratory Orders Smoking Cessation: Smoking cessation has been advised. For more information, call the [place] Tobacco Quit Line at 2-527-MQPW-NOW. - Diet/Nutrition Diet/Nutrition Orders: No Added Salt (XAVIER) - Services Needed Following services are medically necessary services: Home Health Aide, Physical Therapy, Occupational Therapy Home Care Orders: Follow-up with Dr. Guerra within the next 2 weeks. Continue prednisone taper as indicated by Dr. Guerra. May follow-up with surgery to consider right hernia repair - Transfer Medications Home Medications: Baclofen 20 mg PO BID PRN 07/05/15 [History] Lisinopril [Zestril] 10 mg PO DAILY 07/05/15 [History] Simvastatin [Zocor] 40 mg PO HS 07/05/15 [History] Diclofenac Sodium [Voltaren] 50 mg PO BID 10/22/16 [History] Esomeprazole Magnesium [Nexium] 40 mg PO DAILY 02/05/17 [History] Albuterol Sulfate [Albuterol Inhaler] 2 puff IH QID PRN 03/31/17 [History] Divalproex (24 HR) [Depakote ER (24 HR)] 250 mg PO DAILY 03/31/17 [History] Ferrous Gluconate 324 mg PO BID 03/31/17 [History] Aspirin 81 mg PO DAILY 05/23/17 [History] Cholecalciferol (Vitamin D3) [Vitamin D3] 5,000 unit PO DAILY 05/23/17 [History] Ascorbic Acid [Vitamin C] 1 tab PO DAILY #30 tablet 06/03/17 [Rx] Ferrous Sulfate [Iron] 1 tab PO DAILY #30 tablet 06/03/17 [Rx] Amitriptyline [Elavil] 25 mg PO HS 07/09/17 [History] PredniSONE [Deltasone] 1 tab PO BID 07/09/17 [History] Apixaban [Eliquis] 5 mg PO TID 07/11/17 [History] Allergies/Adverse Reactions: 3 Allergy/AdvReac Type Severity Reaction Status Date / Time No Known Allergies Allergy Verified 07/09/17 11:55 Certification: Further, I certify that my clinical findings support that this patient is homebound (i.e. absences from home require considerable and taxing effort and are for medical reasons or nondenominational services or infrequently or short duration when for other reasons) because: Homebound Reason: Patient requires assistance of a person or device to safely leave home Attestation: My signature below is to certify that this patient is under my care and that I, or nurse practitioner, or a physician's video library assistant working with me, has a face-to -face encounter with this patient.
--- NOTE | 2017-07-11 14:33 | Electrocardiograph Report ---
[place] [id number] Test Date: 2017-07-09 Pat Name: Stefano Blanco Department: 102 Room: [id number] Gender: M Train Director: : [id number] Requested By: Mark Anderson Order Number: [id number] Reading MD: Mili Heredia Measurements Intervals [place] Rate: 71 P: 56 OK: 147 QRS: -31 QRSD: 122 T: -16 QT: 396 QTc: 419 Interpretive Statements SINUS RHYTHM LEFT AXIS DEVIATION [QRS AXIS < -30] LEFT VENTRICULAR HYPERTROPHY AND ST-T CHANGE [VOLTAGE CRITERIA PLUS ST/T ABNORMALITY] Electronically Signed On 07-11-2017 14:32:10 EST by Mili Heredia
[2017-07-12] MEDS ORDERED: Apixaban 5 MG TABLET PO SCH (09:00)
== END 2017-07-11 15:29 | disposition home or self-care (01) | DRG 392 ==
LOC: 2NENU 11:52 → EMEROO 11:52 → 2NENU 15:12
PROVIDERS: ADMIT Internal Medicine; ATTEND Internal Medicine

== ENCOUNTER 2017-08-05 15:26 | Inpatient (IN) ==
[2017-08-05] MEDS ORDERED: Benzonatate 100 MG CAPSULE PO ONE (16:08)
[2017-08-05] MEDS ORDERED: 0.9 % Sodium Chloride 250 ML IVC ONE (16:08)
[2017-08-05] MEDS ORDERED: Ipratropium/Albuterol Neb 3 ML IH ONE (16:08)
[2017-08-05] MEDS ORDERED: Levofloxacin 750 MG/150 ML 750 MG/150 ML BAG IVPB ONE (16:13)
[2017-08-05] MEDS ORDERED: Piperacillin/Tazobactam 3.375 GM in Water for inj. (sterile) 20 ML 20 ML IVP ONE (16:13)
[2017-08-05] MEDS ORDERED: Vancomycin 1,000 MG in D5% in Water 250 ML IVPB ONE (16:13)
[2017-08-05 16:48] LABS: Basophils % 0.2 %; Eosinophils # 0.4 K/mcL (0.0-0.6); Eosinophils % 3.8 %; Hematocrit 24.8 % (37.5-50.1); Immature Granulocytes % 0.8 % (0-4); Lymphocytes # 1.4 K/mcL (0.6-4.6); Lymphocytes % 14.3 %; Mean Corpuscular HGB Conc 30.2 g/dL (31.6-35.5); Mean Corpuscular Hemoglobin 28.7 pg (28.0-33.3); Mean Platelet Volume 9.7 fL (9.4-12.4); Monocytes # 1.1 K/mcL (0.0-1.3); Monocytes % 11.1 %; Neutrophils # 6.8 K/mcL (1.6-8.9); Nucleated Red Blood Cells 0.2 /100 WBC (0); Platelet Count 354 K/mcL (140-400); Red Blood Count 2.61 M/mcL (4.19-5.50); Red Cell Distribution Width 21.7 % (11.5-14.5); Segmented Neutrophils % 69.8 %
[2017-08-05 17:04] LABS: BUN/Creatinine Ratio 28 (6-26); Blood Urea Nitrogen 32 mg/dL (8-23); Calcium 8.5 mg/dL (8.6-10.3); Carbon Dioxide 30 mEq/L (23-29); Chloride 108 mEq/L (98-107); Glucose 115 mg/dL (70-105); Osmolality,Calculated 304 (280-300); Potassium 3.8 mEq/L (3.5-5.1); Sodium 143 mEq/L (136-145); eGFR For African Americans > 60 (> 60); eGFR For Non-African Americans > 60 (> 60)
[2017-08-05 17:15] LABS: Hemoglobin 7.5 g/dL (12.9-16.9)
[2017-08-05] MEDS ORDERED: 0.9 % Sodium Chloride 1,000 ML IVC SCH (22:45)
[2017-08-05] MEDS ORDERED: Naloxone 0.4 MG/ML INJ IVP PRN (22:49)
--- NOTE | 2017-08-05 23:35 | Internal Med History&Physical ---
<Miguel Gudino - Last Filed: 08/06/17 00:48> Date of Encounter: 08/06/17 Time of Encounter: 20:30 Assessment and Plan (1) Shortness of breath Current visit: Yes Status: Acute Multifactorial Somewhat improved since receiving 1L of fluids, will administer another at 75 mls/hr CTA negative for PE Worsening anemia, 7.5 this admission, down from baseline of 8-[address] Guerra office note - administering 1 unit of pRBCs due to elevated troponin - starting solumedrol 40 mg BID - will monitor CBC daily COPD and Idiopathic pulmonary fibrosis - continue home inhaler - patient needs to have pulmonology appointment set up prior to discharge Possible pneumonia or viral respiratory syndrome - no PNA obvious on CTA, but extensive fibrosis - patient is an aspiration risk, speech eval ordered - will check respiratory panel - given vanc, zosyn, and levaquin x1 in the ED - will continue zosyn Possible CHF - mildly elevated BNP, bilateral pedal pitting edema on exam - has history of mitral regurg and EF 50% per daughter - will check echo - will closely monitor fluid status and administer lasix as necessary (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 Guerra See plan of care above (3) COPD (chronic obstructive pulmonary disease) Current visit: Yes Status: Acute See plan of care above Qualifiers: COPD type: emphysema Emphysema type: unspecified Qualified Code(s): J43.9 - Emphysema, unspecified (4) IPF (idiopathic pulmonary fibrosis) Current visit: Yes Status: Chronic See plan of care above (5) Right femoral vein DVT Current visit: Yes Status: Acute Continue home eliquis Chest CTA negative for PE Qualifiers: Chronicity: unspecified Qualified Code(s): I82.411 - Acute embolism and thrombosis of right femoral vein (6) Elevated troponin Current visit: Yes Status: Acute 0.05, above baseline of <0.03 No EKG changes Most likely demand ischemia secondary to anemia (7) Weakness Current visit: Yes Status: Acute Likely secondary to acute worsened anemia, pulmonary status, etc. Will check head CT given history of falls, especially since he is taking eliquis (8) Debilitated Current visit: Yes Status: Acute PT/OT evaluation (9) Essential hypertension Current visit: Yes Status: Chronic Elevated on admission, has since improved Restarted home medications Will monitor (10) Hyperlipidemia Current visit: Yes Status: Chronic Continue home statin Qualifiers: Hyperlipidemia type: unspecified Qualified Code(s): E78.5 - Hyperlipidemia , unspecified (11) Depression Current visit: No Status: Chronic Continue home medication Qualifiers: Depression Type: unspecified Qualified Code(s): F32.9 - Major depressive disorder, single episode, unspecified (12) Tobacco abuse Current visit: Yes Status: Acute Patient has about 50 pack years of smoking history Continues to smoke about 1/2 ppd Encouraged complete smoking cessation (13) DVT prophylaxis Current visit: Yes Status: Acute Continue home [facility] Internal Medicine - H&P: HPI Chief complaint: SOB Admitted From: Home Plans for Post Hospital Care: Home History of present illness: Mr. Blanco is a 87 year old male who presented from home with diaphoresis and SOB , after his home health nurse found him at home and called his PCP. He has additional complaints of cough with sputum production, chills, and nasal congestion. He was treated for left lower lobe pneumonia in March 2017. His daughter, who is at bedside during patient interview, notes that the patient has been having falls, the most recent being this morning, as well as weakness. He says that his biggest complaint today is "seeing images" when he closes his eyes. He denies fever, chest pain, anorexia, melena, and hemoptysis. His daughter states that he does not normally drink much water, but that he has not had trouble with other oral intake, especially since being started on steroids. Patient past medical history is significant for: COPD, on 2 L home O2 Presumptive autoimmune hemolytic anemia, with baseline Hgb of 8-9, evaluated by Dr. Guerra and being treated with oral steroids DVT of right superficial femoral vein on eliqu Pulmonary fibrosis CAD 50 pack year smoking history Past Med Surg Social Fam HX - Past Medical History Medical history: arthritis, cancer, COPD, coronary artery disease, DVT, GERD, hyperlipidemia, hypertension, other Psychiatric history: depression - Past Surgical History Surgical History: orthopedic, other - Social History Smoking Status: Current every day smoker Smokeless Tobacco Status: No Alcohol use: none, rarely Drug use: none - Family History Mother Living Status: Hx Family Cardiac Disorders: Yes Hx Family Endocrine Disorder: Yes Sister Hx Family Cardiac Disorders: Yes Internal Medicine - H&P: Meds Baclofen 20 mg PO BID PRN 07/05/15 [History] Lisinopril [Zestril] 10 mg PO DAILY 07/05/15 [History] Simvastatin [Zocor] 40 mg PO HS 07/05/15 [History] Diclofenac Sodium [Voltaren] 50 mg PO BID 10/22/16 [History] Esomeprazole Magnesium [Nexium] 40 mg PO DAILY 02/05/17 [History] Albuterol Sulfate [Albuterol Inhaler] 2 puff IH QID PRN 03/31/17 [History] Divalproex (24 HR) [Depakote ER (24 HR)] 250 mg PO DAILY 03/31/17 [History] Ferrous Gluconate 324 mg PO BID 03/31/17 [History] Aspirin 81 mg PO DAILY 05/23/17 [History] Cholecalciferol (Vitamin D3) [Vitamin D3] 5,000 unit PO DAILY 05/23/17 [History] Amitriptyline [Elavil] 25 mg PO HS 07/09/17 [History] Apixaban [Eliquis] 5 mg PO TID 07/11/17 [History] Amoxicillin [Amoxicillin] 875 mg PO BID 08/05/17 [History] Ascorbic Acid [Vitamin C] 500 mg PO DAILY 08/05/17 [History] Furosemide [Lasix] 40 mg PO DAILY 08/05/17 [History] Guaifenesin [Mucinex] 600 mg PO Q12H PRN 08/05/17 [History] L. Acidophilus/Pectin, [place] [Acidophilus Probiotic Capsule] 1 each PO BID 03/14 [History] PredniSONE [Deltasone] 20 mg PO DAILY 08/05/17 [History] 3 Allergy/AdvReac Type Severity Reaction Status Date / Time No Known Allergies Allergy Verified 07/22/17 14:45 All Systems PM: A 10-system review of systems was performed and is negative for pertinent findings except as documented above in the HPI. Review of systems: As per HPI - Constitutional Vitals: Temp Pulse Resp BP Pulse Ox 98.6 F 102 18 139/76 97 08/05/17 22:20 08/05/17 22:20 08/05/17 22:20 08/05/17 22:20 08/05/17 22:20 General appearance: Present: cooperative, A&O X 3, pleasant, no acute distress, answers questions appropriately - Head Head exam: Present: atraumatic, normal inspection, normocephalic - Eye Eye exam: Present: PERRL - ENT ENT exam: Present: mucous membranes moist Additional comments: Significant nasal congestion - Neck Neck exam general surgery: Present: trachea midline - Respiratory Respiratory exam: Present: rhonchi, wheezes (few, scattered). Absent: accessory muscle use, rales, respiratory distress, tachypnea Additional comments: coarse breath sounds - Cardiovascular Cardiovascular exam: Present: RRR, +S1, +S2 - GI/Abdominal GI/Abdominal exam: Present: soft, no peritoneal signs. Absent: tenderness - Extremities Exam Extremities exam: Present: pedal edema (2+ to above ankle) - Neurological Exam Neurological exam: Present: alert, oriented X3, no focal deficits, strengths equal and symetr throughout - Psychiatric Psychiatric exam: Present: normal affect, normal mood. Absent: agitated, anxious - Skin Skin exam: Present: dry, warm Internal Med - H&P Results - Labs CBC & Chem 7: 08/05/17 16:30 08/05/17 16:30 <John Salazar - Last Filed: 08/06/17 07:09> Date of Encounter: 08/05/17 Internal Medicine - H&P: HPI History of present illness: Mr. Blanco is a 87 year old male All Systems PM: A 10-system review of systems was performed and is negative for pertinent findings except as documented above in the HPI. - Constitutional Vitals: Temp Pulse Resp BP Pulse Ox 98.1 F 104 20 153/102 96 08/06/17 06:05 08/06/17 04:00 08/06/17 06:05 08/06/17 06:05 08/06/17 06:05 Internal Med - H&P Results - Labs CBC & Chem 7: 08/05/17 16:30 08/05/17 16:30 - Attending Attestation I examined this patient and my medical decision-making was reviewed with the Resident Physician Dr. Gudino. I agree with the documented findings, disposition and treatment plan as described except to the extent set forth below. Mr. Blanco is a 87 year old male who presented from home with diaphoresis and SOB , after his home health nurse found him at home and called his PCP. He has additional complaints of cough with sputum production, chills, and nasal congestion. He also c/o generalized weakness Gen: A, A, O x 3 Chest: dimisnihes BS, mild ronchi, mild wheezing Heart: S1S2 + sinus tachycardia NO murmurs a/p 1. Acute pneumonia - bacterial 2. Chronic hypoxic resp failure 3. Acute COPD / Pulm fibrosis Exacerbation IV Abx Zosyn suspecting for aspiration PNA Speech eval low dose steroids 4. Mildly elevated trop 5. Acute on chronic anemia - due to auto immune process cont steroids Gave 1 U PRBC
--- NOTE | 2017-08-06 00:26 | Emergency Department Note ---
Disposition Clinical Impression: Anemia Qualifiers: Anemia type: iron deficiency Iron deficiency anemia type: unspecified iron deficiency Qualified Code(s): D50.9 - Iron deficiency anemia, unspecified Dyspnea Qualifiers: Dyspnea type: dyspnea on exertion Qualified Code(s): R06.09 - Other forms of dyspnea Disposition: Admitted As Inpatient Condition: Fair General Adult HPI - General Chief complaint: ED Shortness of Breath/Dyspnea Stated complaint: Weakness Time Seen by Provider: 08/05/17 15:34 Source: patient, family Limitations: no limitations Nursing Notes Reviewed: Yes Vital Signs Reviewed: Yes - History of Present Illness HPI Narrative: 87-year-old male who has a history of chronic anemia, recent cough and congestion. Presents today with concern for worsening cough despite being started on antibiotics yesterday by outpatient primary care provider. Today had worsening cough and concern for underlying pneumonia. Patient had home health care at his home today who felt he should be evaluated in the emergency department. Pain Scale: 0 - Related Data Home Medications Medication Instructions Recorded Confirmed Baclofen 20 mg PO BID PRN 07/05/15 08/05/17 Lisinopril [Zestril] 10 mg PO DAILY 07/05/15 08/05/17 Simvastatin [Zocor] 40 mg PO HS 07/05/15 08/05/17 Diclofenac Sodium [Voltaren] 50 mg PO BID 10/22/16 08/05/17 Esomeprazole Magnesium [Nexium] 40 mg PO DAILY 02/05/17 08/05/17 Albuterol Sulfate [Albuterol 2 puff IH QID PRN 03/31/17 08/05/17 Inhaler] Divalproex (24 HR) [Depakote ER 250 mg PO DAILY 03/31/17 08/05/17 (24 HR)] Ferrous Gluconate 324 mg PO BID 03/31/17 08/05/17 Aspirin 81 mg PO DAILY 05/23/17 08/05/17 Cholecalciferol (Vitamin D3) 5,000 unit PO DAILY 05/23/17 08/05/17 [Vitamin D3] Amitriptyline [Elavil] 25 mg PO HS 07/09/17 08/05/17 Apixaban [Eliquis] 5 mg PO TID 07/11/17 08/05/17 Amoxicillin [Amoxicillin] 875 mg PO BID 08/05/17 08/05/17 Ascorbic Acid [Vitamin C] 500 mg PO DAILY 08/05/17 08/05/17 Furosemide [Lasix] 40 mg PO DAILY 08/05/17 08/05/17 Guaifenesin [Mucinex] 600 mg PO Q12H PRN 08/05/17 08/05/17 L. Acidophilus/Pectin, [place] 1 each PO BID 08/05/17 08/05/17 [Acidophilus Probiotic Capsule] PredniSONE [Deltasone] 20 mg PO DAILY 08/05/17 08/05/17 Allergies Allergy/AdvReac Type Severity Reaction Status Date / Time No Known Allergies Allergy Verified 07/22/17 14:45 All systems ED: reviewed and negative except as stated. Past Medical History - Past Medical History Medical history: Reports: arthritis, cancer, COPD, coronary artery disease, DVT , GERD, hyperlipidemia, hypertension, other Surgical history: Reports: orthopedic, other Psychiatric history: Reports: depression - Social History Smoking Status: Current every day smoker Smokeless Tobacco Status: No Alcohol use: Reports: none, rarely Drug use: Reports: none Physical Exam - General Limitations: no limitations General appearance: alert - Head Head exam: atraumatic - Eye Eye exam: Present: normal appearance - ENT ENT exam: normal exam - Neck Neck exam: Present: normal inspection, full ROM - Chest Chest inspection: Present: normal inspection - Respiratory Respiratory exam: Present: other - Cardiovascular Cardiovascular exam: Present: tachycardia - Abdominal Exam Abdominal exam: Present: soft, Non-Tender - Male exam: Absent: normal inspection - Expanded Lower Extremity Exam Neurovascular/Tendon exam: Present: normal capillary refill. Absent: pulse deficit Gait: not tested/not observed - Back Exam Back exam: Present: normal inspection - Neurological Exam Neurological exam: Present: alert, oriented X3, CN II-XII intact - Psychiatric Psychiatric exam: Present: normal affect - Skin Skin exam: Present: warm, dry (Rales bilaterally) Course Vital Signs Temperature 97.7 F 08/05/17 15:29 Pulse Rate 140 08/05/17 15:29 Respiratory Rate 18 08/05/17 15:29 Blood Pressure 170/69 08/05/17 15:29 O2 Sat by Pulse Oximetry 83 08/05/17 15:29 Temperature 98.6 F 08/05/17 22:20 Pulse Rate 102 08/05/17 22:20 Respiratory Rate 18 08/05/17 22:20 Blood Pressure 139/76 08/05/17 22:20 O2 Sat by Pulse Oximetry 97 08/05/17 22:20 Oxygen Delivery Oxygen Delivery Room Air Medical Decision Making - MDM Narrative Medical decision making narrative: This is an elderly male with findings of anemia. This could be contributory towards his feelings of dyspnea. He does have underlying pulmonary fibrosis. Initially he was tachycardic and met SIRS criteria. I did start broad-spectrum antibiotics. Blood cultures were sent. Ultimately I do feel his dyspnea is related to chronic disease with underlying pulmonary fibrosis and additionally his anemia is contributing to his dyspnea. Given his degree of symptoms as well as elevated cardiac biomarkers I would proceed with treatment of anemia with 1 unit of packed red blood cells. This was ordered. Patient will be admitted for further evaluation. - Medical Records Medical records reviewed: Yes I reviewed the patient's medical records. - Lab Data Lab results reviewed: Yes I reviewed the patient's lab results. Result diagrams: 08/05/17 16:30 08/05/17 16:30 Lab Results 08/05/17 08/05/17 08/05/17 Range/Units 16:30 16:30 16:30 WBC 9.8 (4.3-11.1) K/mcL RBC 2.61 L (4.19-5.50) M/mcL Hgb 7.5 L (12.9-16.9) g/dL Hct 24.8 L (37.5-50.1) % MCV 95.0 (83.0-100.0) fL MCH 28.7 (28.0-33.3) pg MCHC 30.2 L (31.6-35.5) g/dL RDW 21.7 H (11.5-14.5) % Plt Count 354 (140-400) K/mcL MPV 9.7 (9.4-12.4) fL Immature Gran % 0.8 (0-4) % Seg Neutrophils % 69.8 % Lymphocytes % 14.3 % Monocytes % 11.1 % Eosinophils % 3.8 % Basophils % 0.2 % Neutrophils # 6.8 (1.6-8.9) K/mcL Lymphocytes # 1.4 (0.6-4.6) K/mcL Monocytes # 1.1 (0.0-1.3) K/mcL Eosinophils # 0.4 (0.0-0.6) K/mcL Basophils # 0.0 (0.0-0.2) K/mcL Nucleated RBCs/100 WBC 0.2 H (0) /100 WBC Sodium 143 (136-145) mEq/L Potassium 3.8 (3.5-5.1) mEq/L Chloride 108 H (98-107) mEq/L Carbon Dioxide 30 H (23-29) mEq/L BUN 32 H (8-23) mg/dL Creatinine 1.13 (0.70-1.30) mg/dL Est GFR ( Amer) > 60 (> 60) Est GFR (Non-Af Amer) > 60 (> 60) BUN/Creatinine Ratio 28 H (6-26) Glucose 115 H (70-105) mg/dL Calculated Osmolality 304 H (280-300) Lactic Acid 1.3 (0.5-2.2) mmol/L Calcium 8.5 L (8.6-10.3) mg/dL Troponin I (< 0.04) ng/mL B-Natriuretic Peptide (Less than 100) pg/mL Blood Type Antibody Screen Crossmatch 08/05/17 08/05/17 08/05/17 Range/Units 16:30 16:30 19:04 WBC (4.3-11.1) K/mcL RBC (4.19-5.50) M/mcL Hgb (12.9-16.9) g/dL Hct (37.5-50.1) % MCV (83.0-100.0) fL MCH (28.0-33.3) pg MCHC (31.6-35.5) g/dL RDW (11.5-14.5) % Plt Count (140-400) K/mcL MPV (9.4-12.4) fL Immature Gran % (0-4) % Seg Neutrophils % % Lymphocytes % % Monocytes % % Eosinophils % % Basophils % % Neutrophils # (1.6-8.9) K/mcL Lymphocytes # (0.6-4.6) K/mcL Monocytes # (0.0-1.3) K/mcL Eosinophils # (0.0-0.6) K/mcL Basophils # (0.0-0.2) K/mcL Nucleated RBCs/100 WBC (0) /100 WBC Sodium (136-145) mEq/L Potassium (3.5-5.1) mEq/L Chloride (98-107) mEq/L Carbon Dioxide (23-29) mEq/L BUN (8-23) mg/dL Creatinine (0.70-1.30) mg/dL Est GFR ( Amer) (> 60) Est GFR (Non-Af Amer) (> 60) BUN/Creatinine Ratio (6-26) Glucose (70-105) mg/dL Calculated Osmolality (280-300) Lactic Acid (0.5-2.2) mmol/L Calcium (8.6-10.3) mg/dL Troponin I 0.05 H* (< 0.04) ng/mL B-Natriuretic Peptide 239 H (Less than 100) pg/mL Blood Type A NEGATIVE Antibody Screen NEGATIVE Crossmatch See Detail - Radiology Data Radiology results reviewed: Yes I reviewed the patient's radiology results.
[2017-08-06] MEDS ORDERED: 0.9 % Sodium Chloride 250 ML ONE (02:32)
[2017-08-06 04:47] LABS: Adenovirus Not Detected (Not Detect); Bordetella Pertussis Not Detected (Not Detect); Chlamydophila pneumoniae Not Detected (Not Detect); Coronavirus 229E Not Detected (Not Detect); Coronavirus HKU1 Not Detected (Not Detect); Coronavirus NL63 Not Detected (Not Detect); Coronavirus OC43 Not Detected (Not Detect); Human Metapneumovirus Not Detected (Not Detect); Human Rhinovirus/Enterovirus Not Detected (Not Detect); Influenza A Subtype 2009 H1 Not Detected (Not Detect); Influenza A Untypeable Not Detected (Not Detect); Influenza B Not Detected (Not Detect); Mycoplasma pneumoniae Not Detected (Not Detect); Parainfluenza Virus 1 Not Detected (Not Detect); Parainfluenza Virus 2 Not Detected (Not Detect); Parainfluenza Virus 3 Not Detected (Not Detect); Parainfluenza Virus 4 Not Detected (Not Detect); Respiratory Syncytial Virus Not Detected (Not Detect)
[2017-08-06] MEDS ORDERED: *HR* Metoprolol 5 MG/5 ML VIAL IVP ONE ×2 (05:10→05:13)
[2017-08-06] MEDS ORDERED: Furosemide 20 MG/2 ML VIAL IVP ONE ×2 (05:11→05:13)
[2017-08-06] MEDS: MethylPREDNISolone 40 MG/ML VIAL IVP SCH ×2 (05:46→17:19)
[2017-08-06] MEDS ORDERED: Furosemide 40 MG TABLET PO SCH (09:00)
[2017-08-06] MEDS: Apixaban 5 MG TABLET PO SCH ×3 (09:15→22:32)
[2017-08-06] MEDS: Aspirin 81 MG TAB.CHEW PO SCH (09:15)
[2017-08-06] MEDS: Divalproex (24 HR) 250 MG TABLET PO SCH (09:15)
[2017-08-06 10:52] LABS: Hemoglobin 8.7 g/dL (12.9-16.9); Mean Corpuscular HGB Conc 32.2 g/dL (31.6-35.5); Mean Corpuscular Hemoglobin 29.5 pg (28.0-33.3); Mean Corpuscular Volume 91.5 fL (83.0-100.0); Platelet Count 316 K/mcL (140-400); Red Blood Count 2.95 M/mcL (4.19-5.50); Red Cell Distribution Width 19.8 % (11.5-14.5)
[2017-08-06 11:19] LABS: BUN/Creatinine Ratio 23 (6-26); Blood Urea Nitrogen 25 mg/dL (8-23); Calcium 8.5 mg/dL (8.6-10.3); Carbon Dioxide 26 mEq/L (23-29); Chloride 105 mEq/L (98-107); Glucose 141 mg/dL (70-105); Osmolality,Calculated 299 (280-300); Sodium 141 mEq/L (136-145); eGFR For African Americans > 60 (> 60); eGFR For Non-African Americans > 60 (> 60)
--- NOTE | 2017-08-06 14:13 | Internal Med Progress Note ---
Addendum entered and electronically signed by Chris Herrera DO 08/06 15:20: Atrial fibrillation: Patient went into A. fib RVR and was started on Cardizem drip after which she switch back into normal sinus rhythm. 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 - Continue Cardizem 120CD - Monitor inpatient - Eliquis Original Note: <Chris Herrera - Last Filed: 08/06/17 15:09> Date of Encounter: 08/06/17 Time of Encounter: 14:12 - Assessment and plan (1) Shortness of breath Current Visit: Yes Status: Acute Assessment and plan: Likely multifactorial patient has a history of COPD, pulmonary fibrosis with superimposed CTA findings of pneumonia. - Clinically stable Plan: - We will wean oxygen as tolerated - Continue IV Zosyn with risk of aspiration. - Continue inhalers as prescribed (2) COPD (chronic obstructive pulmonary disease) Current Visit: Yes Status: Acute Assessment and plan: Chronic history of COPD, currently on 2 L with oxygen saturations at 96%. CTA of the chest with findings of concern for multifocal pneumonia. - Clinically stable Plan: - Wean oxygen as tolerated Qualifiers: COPD type: emphysema Emphysema type: unspecified Qualified Code(s): J43.9 - Emphysema, unspecified (3) IPF (idiopathic pulmonary fibrosis) Current Visit: Yes Status: Chronic Assessment and plan: Stable. (4) Right femoral vein DVT Current Visit: Yes Status: Acute Assessment and plan: Patient stable. - Continue aspirin and Eliquis Qualifiers: Chronicity: unspecified Qualified Code(s): I82.411 - Acute embolism and thrombosis of right femoral vein (5) Elevated troponin Current Visit: Yes Status: Acute Assessment and plan: Mildly elevated troponin 0.05 likely secondary to hypoxia. - Patient asymptomatic, labs stable. (6) Weakness Current Visit: Yes Status: Acute Assessment and plan: Weakness. Patient has difficulty with ADLs at home difficulty with ambulation likely exacerbated by shortness of breath. 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 Followed by Dr. Guerra (8) Tobacco abuse Current Visit: Yes Status: Acute Assessment and plan: Patient has about 50 pack years of smoking history Continues to smoke about 1/2 ppd Encouraged complete smoking cessation (9) DVT prophylaxis Current Visit: Yes Status: Acute Assessment and plan: ASA and Eliquis - Subjective Interval history: Mr. LEE, seen and evaluated patient bedside this morning. Sclerae awake interactive distress. He does have mild shortness of breath but says he wears 4 L nasal cannula oxygen at home is currently on 2 L and tolerating well. No acute concerns at this time he does have some mild constipation but does not want anything to help with his bowels. No other concerns. - Constitutional Vitals: Temp Pulse Resp BP Pulse Ox 98.2 F 88 19 111/56 89 08/06/17 07:00 08/06/17 11:00 08/06/17 11:00 08/06/17 11:00 08/06/17 11:00 General appearance: Present: cooperative, A&O X 3, pleasant, no acute distress, answers questions appropriately Exam: General: Patient alert, awake, oriented 3, interactive, in no acute distress HEENT: Normocephalic, atraumatic, pupils equal reactive to light, nasal cavity patent and open septum median position, oral mucosa moist, uvula midline, neck supple trachea midline no palpable lymphadenopathy, no thyromegaly. Chest: Symmetric bilateral correlating with respiratory effort, effort nonlabored. Cardiac: Regular rate and rhythm, low grade systolic ejectiion mumur. no bruits appreciated bilateral carotids, Radial pulses 2+ bilateral, posterior tibial and dorsal pedal pulses 2+ bilateral. Respiratory: Diffusely diminished breath sounds with expiratory wheeze mild crackles at lung bases. Abdomen: Soft, nontender, positive bowel sounds, no palpable masses appreciated on examination Extremities: Symmetric bilateral, bilateral lower extremities without erythema or edema patient moving all 4 extremities spontaneously. Neurologic: No focal deficits appreciated on examination. Face symmetric, muscle strength symmetric bilateral upper and lower extremities. Internal Medicine: Result - Labs CBC & Chem 7: 08/06/17 10:00 08/06/17 10:00 Labs: Short CBC 08/06/17 Range/Units 10:00 WBC 10.6 (4.3-11.1) K/mcL Hgb 8.7 L (12.9-16.9) g/dL Hct 27.0 L (37.5-50.1) % Plt Count 316 (140-400) K/mcL BMP 08/06/17 10:00 Sodium 141 Potassium 4.0 Chloride 105 Carbon Dioxide 26 BUN 25 H Creatinine 1.07 Glucose 141 H Calcium 8.5 L Consult Discharge Plan - Plan Referrals: Heribetro Cerrato DO [Primary Care Provider] - <Shaun Calvillo - Last Filed: 08/06/17 17:03> Date of Encounter: 08/06/17 - Assessment and plan (1) Pneumonia Current Visit: Yes Status: Suspected Assessment and plan: Currently on IV abx Continue supportive care Speech eval - MBS to be done. Qualifiers: Pneumonia type: aspiration pneumonia Aspiration pneumonia type: due to gastric secretions Laterality: bilateral Lung location: lower lobe of lung Qualified Code(s): J69.0 - Pneumonitis due to inhalation of food and vomit (2) COPD (chronic obstructive pulmonary disease) Current Visit: Yes Status: Acute Qualifiers: COPD type: emphysema Emphysema type: unspecified Qualified Code(s): J43.9 - Emphysema, unspecified (3) Right femoral vein DVT Current Visit: Yes Status: Acute Qualifiers: Chronicity: unspecified Qualified Code(s): I82.411 - Acute embolism and thrombosis of right femoral vein (4) 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 (5) Essential hypertension Current Visit: Yes Status: Chronic (6) IPF (idiopathic pulmonary fibrosis) Current Visit: Yes Status: Chronic (7) Dysphagia Current Visit: Yes Status: Acute Assessment and plan: MBS to be done. Qualifiers: Dysphagia type: oral phase Qualified Code(s): R13.11 - Dysphagia, oral phase (8) Tobacco abuse Current Visit: Yes Status: Acute - Constitutional Vitals: Temp Pulse Resp BP Pulse Ox 98.2 F 80 18 104/51 98 08/06/17 07:00 08/06/17 15:00 08/06/17 15:00 08/06/17 15:00 08/06/17 15:00 Internal Medicine: Result - Labs CBC & Chem 7: 08/06/17 10:00 08/06/17 10:00 Labs: Short CBC 08/06/17 Range/Units 10:00 WBC 10.6 (4.3-11.1) K/mcL Hgb 8.7 L (12.9-16.9) g/dL Hct 27.0 L (37.5-50.1) % Plt Count 316 (140-400) K/mcL BMP 02/10/18 10:00 Sodium 141 Potassium 4.0 Chloride 105 Carbon Dioxide 26 BUN 25 H Creatinine 1.07 Glucose 141 H Calcium 8.5 L - Attending Attestation I examined this patient and my medical decision-making was reviewed with the Resident Physician on 08/06/17. I agree with the documented findings, disposition and treatment plan as described except to the extent set forth below. Mr Lee is currently admitted for pneumonia and weakness. He remains moderate to high risk due to potential for worsening clinical status. Mr Lee is resting comfortably. Denies pain. Some dyspnea at this time. Constipated. No fever or chills. Exam alert. Comfortable Mucus membranes dry Heart reg Diffuse rales heard Abd soft I/P 1. Pneumonia 2. IPF Further diagnoses and plan as above.
[2017-08-06] MEDS: Diltiazem CD (24hr) 120 MG CAPSULE PO SCH (14:34)
[2017-08-07] MEDS: MethylPREDNISolone 40 MG/ML VIAL IVP SCH (05:54)
[2017-08-07] MEDS: Aspirin 81 MG TAB.CHEW PO SCH (07:33)
[2017-08-07] MEDS: Apixaban 5 MG TABLET PO SCH (07:33)
[2017-08-07] MEDS: Diltiazem CD (24hr) 120 MG CAPSULE PO SCH (07:33)
[2017-08-07] MEDS: Divalproex (24 HR) 250 MG TABLET PO SCH (07:33)
[2017-08-07 08:28] LABS: Basophils % 0.1 %; Hematocrit 24.3 % (37.5-50.1); Hemoglobin 7.7 g/dL (12.9-16.9); Immature Granulocytes % 0.6 % (0-4); Lymphocytes # 0.6 K/mcL (0.6-4.6); Lymphocytes % 5.9 %; Mean Corpuscular HGB Conc 31.7 g/dL (31.6-35.5); Mean Corpuscular Hemoglobin 29.1 pg (28.0-33.3); Mean Corpuscular Volume 91.7 fL (83.0-100.0); Monocytes # 0.3 K/mcL (0.0-1.3); Monocytes % 3.1 %; Neutrophils # 9.9 K/mcL (1.6-8.9); Nucleated Red Blood Cells 0.2 /100 WBC (0); Platelet Count 299 K/mcL (140-400); Red Blood Count 2.65 M/mcL (4.19-5.50); Red Cell Distribution Width 19.9 % (11.5-14.5); Segmented Neutrophils % 90.3 %
[2017-08-07 08:50] LABS: Alanine Aminotransferase 12 Units/L (7-52); Albumin 2.7 g/dL (3.5-5.7); Alkaline Phosphatase 48 Units/L (34-104); Aspartate Amino Transferase 7 Units/L (13-39); BUN/Creatinine Ratio 36 (6-26); Bilirubin,Total 0.3 mg/dL (0.3-1.0); Blood Urea Nitrogen 35 mg/dL (8-23); Calcium 8.1 mg/dL (8.6-10.3); Carbon Dioxide 26 mEq/L (23-29); Chloride 110 mEq/L (98-107); Globulin 2.7 g/dL (2.4-3.5); Glucose 162 mg/dL (70-105); Osmolality,Calculated 310 (280-300); Potassium 3.9 mEq/L (3.5-5.1); Sodium 144 mEq/L (136-145); Total Protein 5.4 g/dL (6.4-8.9); eGFR For African Americans > 60 (> 60); eGFR For Non-African Americans > 60 (> 60)
--- NOTE | 2017-08-07 11:51 | Internal Med Progress Note ---
<Chris Herrera - Last Filed: 08/07/17 11:48> Date of Encounter: 08/07/17 Time of Encounter: 10:00 - Assessment and plan (1) Shortness of breath Current Visit: Yes Status: Acute Assessment and plan: Likely multifactorial patient has a history of COPD, pulmonary fibrosis with superimposed CTA findings of pneumonia. 08/07: new finding hemoptysis today. Pulmonology consulted. CXR pending. NPO until further evaluation. Plan: - We will wean oxygen as tolerated - Continue IV Zosyn with risk of aspiration. - Continue inhalers as prescribed (2) COPD (chronic obstructive pulmonary disease) Current Visit: Yes Status: Acute Assessment and plan: Chronic history of COPD, currently on 2 L with oxygen saturations at 96%. CTA of the chest with findings of concern for multifocal pneumonia. - Clinically stable Plan: - Wean oxygen as tolerated Qualifiers: COPD type: emphysema Emphysema type: unspecified Qualified Code(s): J43.9 - Emphysema, unspecified (3) IPF (idiopathic pulmonary fibrosis) Current Visit: Yes Status: Chronic Assessment and plan: Stable. (4) Right femoral vein DVT Current Visit: Yes Status: Acute Assessment and plan: Patient stable. - aspirin and Eliquis held today with new hemoptysis and anemia. Qualifiers: Chronicity: unspecified Qualified Code(s): I82.411 - Acute embolism and thrombosis of right femoral vein (5) Elevated troponin Current Visit: Yes Status: Acute Assessment and plan: Mildly elevated troponin 0.05 likely secondary to hypoxia. - Patient asymptomatic, labs stable. (6) Weakness Current Visit: Yes Status: Acute Assessment and plan: Weakness. Patient has difficulty with ADLs at home difficulty with ambulation likely exacerbated by shortness of breath. 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 Followed by Dr. Guerra (8) Tobacco abuse Current Visit: Yes Status: Acute Assessment and plan: Patient has about 50 pack years of smoking history Continues to smoke about 1/2 ppd Encouraged complete smoking cessation (9) Cough with hemoptysis Current Visit: Yes Status: Acute Assessment and plan: New onset hemoptysis today, Transfusion yesterday x1 unit PRBCs and hgb peaked and trended back down to 7.7. - No change in respiratory status - Anticoagulation held at this time - CXR PA/LAT - Pulmonology consulted today - Discussed plan with patient. (10) DVT prophylaxis Current Visit: Yes Status: Acute Assessment and plan: Held ASA and Eliquis, SCDs started. - Subjective Interval history: Mr. Blanco, has been seen and evaluated at patient bedside this morning. He is awake interactive, alert and in no acute distress. He says his SOB has resolved but he has been coughing up blood all morning which is new and has never done before. He denies any new changes over night. He has been eating, drinking and voiding appropriately. - Constitutional Vitals: Temp Pulse Resp BP Pulse Ox 97.4 F L 75 17 121/59 95 08/07/17 07:30 08/07/17 07:30 08/07/17 07:30 08/07/17 07:30 08/07/17 07:30 General appearance: Present: cooperative, A&O X 3, pleasant, no acute distress, answers questions appropriately Exam: General: Patient alert, awake, oriented 3, interactive, in no acute distress HEENT: Normocephalic, atraumatic, pupils equal reactive to light, nasal cavity patent and open septum median position, oral mucosa moist, neck supple trachea midline no palpable lymphadenopathy, no thyromegaly. Hemoptysis noted while in the room Chest: Symmetric bilateral correlating with respiratory effort, effort nonlabored. Cardiac: Regular rate and rhythm, low grade systolic ejectiion mumur. no bruits appreciated bilateral carotids, Radial pulses 2+ bilateral, posterior tibial and dorsal pedal pulses 2+ bilateral. Respiratory: CTABL Abdomen: Soft, nontender, positive bowel sounds, no palpable masses appreciated on examination Extremities: Symmetric bilateral, bilateral lower extremities without erythema or edema patient moving all 4 extremities spontaneously. Neurologic: No focal deficits appreciated on examination. Face symmetric, muscle strength symmetric bilateral upper and lower extremities. Internal Medicine: Result - Labs CBC & Chem 7: 08/07/17 08:04 08/07/17 08:04 Labs: Short CBC 08/07/17 Range/Units 08:04 WBC 10.9 (4.3-11.1) K/mcL Hgb 7.7 L (12.9-16.9) g/dL Hct 24.3 L (37.5-50.1) % Plt Count 299 (140-400) K/mcL Neutrophils # 9.9 H (1.6-8.9) K/mcL BMP 08/07/17 08:04 Sodium 144 Potassium 3.9 Chloride 110 H Carbon Dioxide 26 BUN 35 H Creatinine 0.98 Glucose 162 H Calcium 8.1 L Liver Function 08/07/17 Range/Units 08:04 Total Bilirubin 0.3 (0.3-1.0) mg/dL AST 7 L (13-39) Units/L ALT 12 (7-52) Units/L Alkaline Phosphatase 48 (34-104) Units/L Albumin 2.7 L (3.5-5.7) g/dL - Impressions Impressions Head CT 08/06/17 16:00 IMPRESSION: 1. No acute intracranial abnormality. 2. Findings compatible with chronic small vessel ischemic disease. 3. Fluid in the bilateral maxillary and left sphenoid sinuses compatible with sinusitis. D/ / Wes Bee MD / Wes Bee MD Interpreting Provider: Wes Bee MD Consult Discharge Plan - Plan Referrals: Heriberto Cerrato DO [Primary Care Provider] - <Shaun Calvillo A - Last Filed: 08/07/17 18:03> Date of Encounter: 08/07/17 - Assessment and plan (1) Respiratory failure with hypoxia Current Visit: Yes Status: Acute Qualifiers: Chronicity: acute on chronic Qualified Code(s): J96.21 - Acute and chronic respiratory failure with hypoxia (2) Cough with hemoptysis Current Visit: Yes Status: Acute (3) Pneumonia Current Visit: Yes Status: Suspected Qualifiers: Pneumonia type: aspiration pneumonia Aspiration pneumonia type: due to gastric secretions Laterality: bilateral Lung location: lower lobe of lung Qualified Code(s): J69.0 - Pneumonitis due to inhalation of food and vomit (4) COPD (chronic obstructive pulmonary disease) Current Visit: Yes Status: Acute Qualifiers: COPD type: emphysema Emphysema type: panlobular Qualified Code(s): J43.1 - Panlobular emphysema (5) Right femoral vein DVT Current Visit: Yes Status: Acute Qualifiers: Chronicity: unspecified Qualified Code(s): I82.411 - Acute embolism and thrombosis of right femoral vein (6) 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 (7) Essential hypertension Current Visit: Yes Status: Chronic (8) IPF (idiopathic pulmonary fibrosis) Current Visit: Yes Status: Chronic (9) Dysphagia Current Visit: Yes Status: Acute Qualifiers: Dysphagia type: oral phase Qualified Code(s): R13.11 - Dysphagia, oral phase (10) Tobacco abuse Current Visit: Yes Status: Acute - Constitutional Vitals: Temp Pulse Resp BP Pulse Ox 98.1 F 87 16 121/34 98 08/07/17 16:49 08/07/17 16:49 08/07/17 16:49 08/07/17 16:49 08/07/17 16:49 Internal Medicine: Result - Labs CBC & Chem 7: 08/07/17 08:04 08/07/17 08:04 Labs: Short CBC 08/07/17 Range/Units 08:04 WBC 10.9 (4.3-11.1) K/mcL Hgb 7.7 L (12.9-16.9) g/dL Hct 24.3 L (37.5-50.1) % Plt Count 299 (140-400) K/mcL Neutrophils # 9.9 H (1.6-8.9) K/mcL BMP 08/07/17 08:04 Sodium 144 Potassium 3.9 Chloride 110 H Carbon Dioxide 26 BUN 35 H Creatinine 0.98 Glucose 162 H Calcium 8.1 L Liver Function 08/07/17 Range/Units 08:04 Total Bilirubin 0.3 (0.3-1.0) mg/dL AST 7 L (13-39) Units/L ALT 12 (7-52) Units/L Alkaline Phosphatase 48 (34-104) Units/L Albumin 2.7 L (3.5-5.7) g/dL - ABG Interpretation ABG results: PT/INR, D-dimer PT 19.8 Seconds (9.4-12.1) H 08/07/17 11:27 - Impressions Impressions Chest X-Ray 08/07/17 11:31 IMPRESSION: Patchy airspace opacities bilaterally, likely related to pulmonary edema versus pneumonia, stable to mildly increased. Small bilateral pleural effusions, stable. D/ / Colby Moreno MD / Colby Moreno MD Interpreting Provider: Colby Moreno MD - Attending Attestation I examined this patient and my medical decision-making was reviewed with the Resident Physician on 08/07/17. I agree with the documented findings, disposition and treatment plan as described except to the extent set forth below. Mr Blanco is currently admitted for resp failure and pneumonia. He remains moderate to high risk due to potential for worsening clinical status. Mr Blanco coughed up blood today. No fever or chills. No pain. Has not done this before. H/H has been low. Exam Alert. Comfortable Mucus membranes dry Heart reg Lungs with rhonchi bilaterally I/P 1. Hemoptysis 2. CHF Further diagnoses and plan as above.
[2017-08-07 12:47] LABS: INR 1.8; Prothrombin Time 19.8 Seconds (9.4-12.1)
--- NOTE | 2017-08-07 14:02 | Pulmonology Consult Note ---
Date of Encounter: 08/07/17 Time of Encounter: 14:00 Assessment and Plan (1) Hemoptysis Current Visit: Yes Status: Acute Impression: 1. Submassive Hemoptysis likely related to hydrostatic pulmonary edema with CHF complicated by mitral regurgitation was underlying structural lung disease on blood thinning agent alternatively this could be related to bronchitis or possibly even pneumonia with increased risk of hemorrhage related to structural lung disease, on blood thinning agent. Patient is hemodynamically stable at this time 2. Acute Hypoxic Respiratory failure: Acceptable oxygenation currently on nasal cannula 3. 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 Subacute DVT: ON Xarelto High risk for recurrence or propagation of DVT 6. Acute on Chronic Hemolytic Anemia status post 1 unit PRBCs without appropriate increment. Total bilirubin within normal limits Recs: 1. Continue to monitor on telemetry patient has established IV access with midline. Continue to track amount of hemoptysis if creatinine is 100 mL at one time or greater than 250 mL over the next 12 hours transfer to ICU for closer monitoring high risk for further decompensation requiring intubation. Increase steroid dose to 80 mg twice a day IV Solu-Medrol. Start antitussive agent such as Tessalon Perles and codeine cough suppressant. Agree with empiric antimicrobials. I feel that the risk of administration of FFP to mitigate effect of Xarelto at this time is unwarranted given risk for volume overload and thrombosis. Keep nothing by mouth at least at midnight (and while active hemoptysis at all times) for consideration of bronchoscopy tomorrow. 2. Titrated O2 keep saturation greater than 88% around 92% at all times 3. Consider IV Lasix for goal -0.500-1 L over the next 24 hours with close monitoring of urine output in serum creatinine along with electrolytes per primary service 4. Schedule bronchodilators continue steroids as above he will need outpatient follow-up 5. Patient would be considered appropriate for placement of IVC filter with persistent hemoptysis and DVT <1 month 6. Recommend a formal consultation with hematology/oncology; transfusion goal for Hgb greater than 7 I discussed my impression recommendations strictly with the attending hospitalist Dr. Calvillo please call with any questions (2) Heart failure Current Visit: Yes Status: Acute Qualifiers: Heart failure chronicity: acute on chronic Qualified Code(s): I50.9 - Heart failure, unspecified (3) COPD (chronic obstructive pulmonary disease) Current Visit: Yes Status: Acute Qualifiers: COPD type: emphysema Emphysema type: unspecified Qualified Code(s): J43.9 - Emphysema, unspecified (4) IPF (idiopathic pulmonary fibrosis) Current Visit: Yes Status: Chronic (5) Right femoral vein DVT Current Visit: Yes Status: Acute Qualifiers: Chronicity: unspecified Qualified Code(s): I82.411 - Acute embolism and thrombosis of right femoral vein (6) Dysphagia Current Visit: Yes Status: Acute Qualifiers: Dysphagia type: oral phase Qualified Code(s): R13.11 - Dysphagia, oral phase (7) 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 (8) Mitral regurgitation Current Visit: No Status: Chronic Qualifiers: Cardiac valve disease etiology: etiology unspecified Qualified Code(s): I34.0 - Nonrheumatic mitral (valve) insufficiency (9) Respiratory failure with hypoxia Current Visit: Yes Status: Acute Qualifiers: Chronicity: acute on chronic Qualified Code(s): J96.21 - Acute and chronic respiratory failure with hypoxia History of Present Illness Consult date: 08/07/17 Requesting physician: Shaun Clavillo Reason for consult: other (Hemoptysis ) Chief complaint: Coughing up blood History of present illness: This is an 87-year-old gentleman with a past medical history of COPD pulmonary fibrosis CHF and hemolytic anemia and recent DVT on Xarelto who presented him home for increasing shortness of breath and dizziness along with "seeing images " when he closes his eyes. Initial evaluation including a CT of the thorax was negative for an acute process patient has been treated with Zosyn for possible aspiration because of clinical risk he has been treated with a couple of liters of nasal cannula O2 and overall has done fairly well. Unfortunately today he developed minor hemoptysis but it is noted that his wound and coughing up bright red blood since about 10 AM. Patient denies any chest pain worsening shortness of breath fevers chills or any other complaints. He also denies epistaxis and says that he clearly feels like he is coughing up the blood out of his lungs. Patient was also transfused 1u of PRBCs today for drop in h/h without expected increment. Remains otherwise hemodynamically stable. I was consulted for further evaluation. When I spoke to the patient at bedside he had a emesis bag that had its several clots of fresh red blood that was mixed with phlegm. 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 He does not keep any exotic sent home and denies any recent sick contacts. Past Med Surg Social Fam HX - Past Medical History Medical history: arthritis, cancer, COPD, coronary artery disease, DVT, GERD, hyperlipidemia, hypertension, other Psychiatric history: depression - Past Surgical History Surgical History: orthopedic, other - Social History Smoking Status: Current every day smoker Smokeless Tobacco Status: No Alcohol use: none, rarely Drug use: none - Family History Mother Living Status: Hx Family Cardiac Disorders: Yes Hx Family Endocrine Disorder: Yes Sister Hx Family Cardiac Disorders: Yes Medications and Allergies Baclofen 20 mg PO BID PRN 07/05/15 [History] Lisinopril [Zestril] 10 mg PO DAILY 07/05/15 [History] Simvastatin [Zocor] 40 mg PO HS 07/05/15 [History] Diclofenac Sodium [Voltaren] 50 mg PO BID 10/22/16 [History] Esomeprazole Magnesium [Nexium] 40 mg PO DAILY 02/05/17 [History] Albuterol Sulfate [Albuterol Inhaler] 2 puff IH QID PRN 03/31/17 [History] Divalproex (24 HR) [Depakote ER (24 HR)] 250 mg PO DAILY 03/31/17 [History] Ferrous Gluconate 324 mg PO BID 03/31/17 [History] Aspirin 81 mg PO DAILY 05/23/17 [History] Cholecalciferol (Vitamin D3) [Vitamin D3] 5,000 unit PO DAILY 05/23/17 [History] Amitriptyline [Elavil] 25 mg PO HS 07/09/17 [History] Apixaban [Eliquis] 5 mg PO TID 07/11/17 [History] Amoxicillin [Amoxicillin] 875 mg PO BID 08/05/17 [History] Ascorbic Acid [Vitamin C] 500 mg PO DAILY 08/05/17 [History] Furosemide [Lasix] 40 mg PO DAILY 08/05/17 [History] Guaifenesin [Mucinex] 600 mg PO Q12H PRN 08/05/17 [History] L. Acidophilus/Pectin, [place] [Acidophilus Probiotic Capsule] 1 each PO BID 03/14 [History] PredniSONE [Deltasone] 20 mg PO DAILY 08/05/17 [History] 3 Allergy/AdvReac Type Severity Reaction Status Date / Time No Known Allergies Allergy Verified 07/22/17 14:45 All Systems: A 10-system review of systems was performed and is negative for pertinent findings except as documented above in the HPI. Physical Examination General appearance: no acute distress Eyes: nonicteric ENT: oropharynx moist, other (Right nares clear there is some trace amount of crusted blood in the left nares posterior oropharynx without evidence of bleeding) Effort: normal Auscultation: bilateral: diminished breath sounds, rales Cardiovascular: regular rate and rhythm Gastrointestinal: normoactive bowel sounds, soft, non-tender Integumentary: normal Extremities: no edema, no clubbing, edema (Right greater than left) Musculoskeletal: no deformities normal mental status, non-focal exam mood appropriate Results - Laboratory Findings CBC and BMP: 08/07/17 08:04 08/07/17 08:04 PT/INR, D-dimer PT 19.8 Seconds (9.4-12.1) H 08/07/17 11:27 Abnormal lab findings: Abnormal lab results RBC 2.65 M/mcL (4.19-5.50) L 08/07/17 08:04 Hgb 7.7 g/dL (12.9-16.9) L 08/07/17 08:04 Hct 24.3 % (37.5-50.1) L 08/07/17 08:04 RDW 19.9 % (11.5-14.5) H 08/07/17 08:04 Neutrophils # 9.9 K/mcL (1.6-8.9) H 08/07/17 08:04 Nucleated RBCs/100 WBC 0.2 /100 WBC (0) H 08/07/17 08:04 PT 19.8 Seconds (9.4-12.1) H 08/07/17 11:27 Chloride 110 mEq/L (98-107) H 08/07/17 08:04 BUN 35 mg/dL (8-23) H 08/07/17 08:04 BUN/Creatinine Ratio 36 (6-26) H 08/07/17 08:04 Glucose 162 mg/dL (70-105) H 08/07/17 08:04 Calculated Osmolality 310 (280-300) H 08/07/17 08:04 Calcium 8.1 mg/dL (8.6-10.3) L 08/07/17 08:04 AST 7 Units/L (13-39) L 08/07/17 08:04 Troponin I 0.05 ng/mL (< 0.04) H* 08/05/17 16:30 B-Natriuretic Peptide 239 pg/mL (Less than 100) H 08/05/17 16:30 Serum Total Protein 5.4 g/dL (6.4-8.9) L 08/07/17 08:04 Albumin 2.7 g/dL (3.5-5.7) L 08/07/17 08:04 Albumin/Globulin Ratio 1.0 (1.1-2.2) L 08/07/17 08:04 - Microbiology Findings Microbiology Findings: Microbiology, Last 48 Hours 08/06/17 05:11 Sputum Culture - Preliminary Sputum - Diagnostic Findings Chest x-ray: report reviewed, image reviewed CT scan - chest: report reviewed, image reviewed - Clinical Findings Intake & Output: Intake & Output 08/06/17 08/07/17 08/07/17 23:59 07:59 15:59 Intake Total 100 / 100 1100 / 1100 240 / 240 Output Total 300 / 300 Balance 100 / 100 800 / 800 240 / 240 Consult Discharge Plan - Plan Referrals: Heriberto Cerrato DO [Primary Care Provider] -
[2017-08-07] MEDS: methylPREDNISolone 125 MG/2 ML VIAL IVP SCH (15:25)
[2017-08-07] MEDS ORDERED: GuaiFENesin/Codeine Oral Soln 5 ML UDC PO PRN (17:59)
[2017-08-07] MEDS: Benzonatate 100 MG CAPSULE PO PRN (18:10)
[2017-08-08] MEDS: methylPREDNISolone 125 MG/2 ML VIAL IVP SCH ×3 (00:03→16:32)
[2017-08-08 06:46] LABS: Basophils % 0.1 %; Hematocrit 23.1 % (37.5-50.1); Hemoglobin 7.2 g/dL (12.9-16.9); Immature Granulocytes % 1.1 % (0-4); Lymphocytes # 0.6 K/mcL (0.6-4.6); Lymphocytes % 3.8 %; Mean Corpuscular HGB Conc 31.2 g/dL (31.6-35.5); Mean Corpuscular Hemoglobin 28.7 pg (28.0-33.3); Mean Platelet Volume 10.2 fL (9.4-12.4); Monocytes # 0.3 K/mcL (0.0-1.3); Monocytes % 1.7 %; Neutrophils # 14.2 K/mcL (1.6-8.9); Nucleated Red Blood Cells 0.7 /100 WBC (0); Platelet Count 309 K/mcL (140-400); Red Blood Count 2.51 M/mcL (4.19-5.50); Red Cell Distribution Width 19.4 % (11.5-14.5); Segmented Neutrophils % 93.3 %
[2017-08-08 07:07] LABS: Alanine Aminotransferase 13 Units/L (7-52); Albumin 2.6 g/dL (3.5-5.7); Albumin/Globulin Ratio 0.9 (1.1-2.2); Alkaline Phosphatase 44 Units/L (34-104); Aspartate Amino Transferase 10 Units/L (13-39); BUN/Creatinine Ratio 41 (6-26); Bilirubin,Total 0.3 mg/dL (0.3-1.0); Blood Urea Nitrogen 39 mg/dL (8-23); Calcium 8.4 mg/dL (8.6-10.3); Carbon Dioxide 26 mEq/L (23-29); Chloride 109 mEq/L (98-107); Globulin 2.8 g/dL (2.4-3.5); Glucose 176 mg/dL (70-105); Osmolality,Calculated 308 (280-300); Potassium 4.1 mEq/L (3.5-5.1); Sodium 142 mEq/L (136-145); Total Protein 5.4 g/dL (6.4-8.9); eGFR For African Americans > 60 (> 60); eGFR For Non-African Americans > 60 (> 60)
--- NOTE | 2017-08-08 07:26 | Electrocardiograph Report ---
[place] [id number] Test Date: 2017-08-05 Pat Name: Stefano Blanco Department: 102 Room: [id number] Gender: M [employer]: [employer] : 1930 Requested By: Uli Naranjo Order Number: [id number] Reading MD: Shree Tee MD Measurements Intervals [place] Rate: 119 P: 48 CO: 149 QRS: -28 QRSD: 101 T: 83 QT: 284 QTc: 355 Interpretive Statements SINUS TACHYCARDIA BORDERLINE LEFT AXIS DEVIATION LEFT VENTRICULAR HYPERTROPHY AND ST-T CHANGE Electronically Signed On 08-08-2017 7:25:02 EST by Shree Tee MD
[2017-08-08] MEDS ORDERED: *HR* Midazolam HCl 5 MG/5 ML VIAL IVP ONE (08:53)
[2017-08-08] MEDS ORDERED: Lidocaine Viscous Oral Soln 15 ML SOLUTION ONE (08:54)
[2017-08-08] MEDS ORDERED: *HR* FentaNYL (PF) 100 MCG/2 ML VIAL ONE (08:54)
[2017-08-08] MEDS ORDERED: Tetracaine/Benzocaine/Butamben 200MG/SPRAY (100SPY/BOT) MM ONE (09:08)
[2017-08-08] MEDS ORDERED: Lidocaine Viscous Oral Soln 15 ML SOLUTION MM ONE (09:08)
[2017-08-08] MEDS ORDERED: Albuterol 2.5 MG/3 ML NEBULIZER IH ONE (09:08)
[2017-08-08] MEDS ORDERED: *HR* FentaNYL (PF) 100 MCG/2 ML VIAL IVP ONE (09:08)
--- NOTE | 2017-08-08 09:08 | Pre-Sedation Evaluation ---
Pre-sedation evaluation - Pre-sedation checklist Date of procedure: 08/08/17 Procedure: Bronchoscopy Recent Vitals: Last Vital Signs Temp 98.2 F 08/08/17 07:28 Pulse 70 08/08/17 09:01 Resp 18 08/08/17 09:01 BP 141/72 08/08/17 09:01 Pulse Ox 98 08/08/17 09:01 H&P (including ROS) documented in medical record: Yes Previous reaction to sedatives/anesthetics: No Dietary Status: NPO after Midnight Dentition: dentures removed Possible difficult airway: No ASA Classification *see protocol: CLASS III-Severe systemic disease Plan of Care: Pt appropriate candidate for procedure/moderate/conscious sedation , Risks/benefits of procedure/sedation discussed w/ patient/family
[2017-08-08] MEDS: *HR* Midazolam HCl 5 MG/5 ML VIAL IVP ONE ×3 (09:09→09:21)
[2017-08-08] MEDS ORDERED: 0.9 % Sodium Chloride 1,000 ML IVC SCH (09:15)
[2017-08-08] MEDS: *HR* EPINEPHrine 1 MG/10 ML SYRINGE INTRATRACH PRN ×2 (09:21→09:22)
[2017-08-08] MEDS ORDERED: Ipratropium/Albuterol Neb 3 ML ONE (09:33)
[2017-08-08] MEDS ORDERED: Heparin 1,000 UNITS/500 mL 500 ML ONE ×2 (09:54→16:51)
[2017-08-08] MEDS ORDERED: 0.9 % Sodium Chloride 500 ML ONE (09:54)
[2017-08-08 10:25] LABS: Source of Body Fluid LEFT LOWER LOBE LUNG; Source of Body Fluid RIGHT LOWER LOBE
--- NOTE | 2017-08-08 10:33 | IR Consult Note ---
Date of Encounter: 08/08/17 Time of Encounter: 10:29 Assessment and Plan (1) Cough with hemoptysis Current Visit: Yes Status: Acute 87 yo gentleman with new onset hemoptysis. Per history and imaging, pneumonia, bronchitis, and CHF are the most likely etiologies, for which bronchial artery embolization is less effective particularly given submassive symptoms. Recent anticoagulation is a likely contributing factor. Would recommend medical management for now, including correction of INR if possible. This plan of care could be reassessed if the patient has significant worsening of symptoms. Thank you for the consult. Consult date: 08/08/17 Ordering Clinician: Landy Gatica Physicians: Shaun Calvillo DO History of present illness: 87 yo gentleman with CHF, emphysema, pulmonary fibrosis, and recent DVT on anticoagulation who presents with hemoptysis since yesterday morning. This appears to be submassive per history. No prior episodes of hemoptysis. Had bronchoscopy to today, with report pending. Patient has expectorated approximately 1 cc of blood since the procedure. Patient c/o ongoing cough and SOB. Consult Comment: Thank you for the consult. Call VIR with questions or concerns. Past Med Surg Social Fam HX - Past Medical History Medical history: arthritis, cancer, COPD, coronary artery disease, DVT, GERD, hyperlipidemia, hypertension, other Psychiatric history: depression - Past Surgical History Surgical History: orthopedic, other - Social History Smoking Status: Current every day smoker Smokeless Tobacco Status: No Alcohol use: none, rarely Drug use: none - Family History Mother Living Status: Hx Family Cardiac Disorders: Yes Hx Family Endocrine Disorder: Yes Sister Hx Family Cardiac Disorders: Yes Medications and Allergies Baclofen 20 mg PO BID PRN 07/05/15 [History] Lisinopril [Zestril] 10 mg PO DAILY 07/05/15 [History] Simvastatin [Zocor] 40 mg PO HS 07/05/15 [History] Diclofenac Sodium [Voltaren] 50 mg PO BID 10/22/16 [History] Esomeprazole Magnesium [Nexium] 40 mg PO DAILY 02/05/17 [History] Albuterol Sulfate [Albuterol Inhaler] 2 puff IH QID PRN 03/31/17 [History] Divalproex (24 HR) [Depakote ER (24 HR)] 250 mg PO DAILY 03/31/17 [History] Ferrous Gluconate 324 mg PO BID 03/31/17 [History] Aspirin 81 mg PO DAILY 05/23/17 [History] Cholecalciferol (Vitamin D3) [Vitamin D3] 5,000 unit PO DAILY 05/23/17 [History] Amitriptyline [Elavil] 25 mg PO HS 07/09/17 [History] Apixaban [Eliquis] 5 mg PO TID 07/11/17 [History] Amoxicillin [Amoxicillin] 875 mg PO BID 08/05/17 [History] Ascorbic Acid [Vitamin C] 500 mg PO DAILY 08/05/17 [History] Furosemide [Lasix] 40 mg PO DAILY 08/05/17 [History] Guaifenesin [Mucinex] 600 mg PO Q12H PRN 08/05/17 [History] L. Acidophilus/Pectin, [employer] [Acidophilus Probiotic Capsule] 1 each PO BID 03/14 [History] PredniSONE [Deltasone] 20 mg PO DAILY 08/05/17 [History] 3 Allergy/AdvReac Type Severity Reaction Status Date / Time No Known Allergies Allergy Verified 07/22/17 14:45 Exam Vital Signs, Last 4 Hours Temp Pulse Resp BP Pulse Ox 08/08/17 10:00 79 14 119/56 99 08/08/17 09:48 78 16 123/49 94 08/08/17 09:38 89 18 130/100 92 08/08/17 09:33 92 20 119/62 90 08/08/17 09:28 90 18 138/72 98 08/08/17 09:23 91 18 139/57 98 08/08/17 09:18 83 14 114/58 97 08/08/17 09:13 70 14 132/68 99 08/08/17 09:08 72 18 143/73 99 08/08/17 09:01 70 18 141/72 98 08/08/17 07:28 98.2 F 92 14 133/61 96 Results Reviewed 08/08/17 05:16 08/08/17 05:16 Lab Results 08/08/17 08/08/17 08/07/17 05:16 05:16 11:27 WBC 15.2 H RBC 2.51 L Hgb 7.2 L Hct 23.1 L MCV 92.0 MCH 28.7 MCHC 31.2 L RDW 19.4 H Plt Count 309 MPV 10.2 Neutrophils # 14.2 H Lymphocytes # 0.6 Monocytes # 0.3 Eosinophils # 0.0 Basophils # 0.0 PT 19.8 H INR 1.8 Sodium 142 Potassium 4.1 Chloride 109 H Carbon Dioxide 26 BUN 39 H Creatinine 0.96 Est GFR ( Amer) > 60 Est GFR (Non-Af Amer) > 60 BUN/Creatinine Ratio 41 H Glucose 176 H Calcium 8.4 L 08/07/17 08/07/17 08/06/17 08:04 08:04 10:00 WBC 10.9 RBC 2.65 L Hgb 7.7 L Hct 24.3 L MCV 91.7 MCH 29.1 MCHC 31.7 RDW 19.9 H Plt Count 299 MPV 10.0 Neutrophils # 9.9 H Lymphocytes # 0.6 Monocytes # 0.3 Eosinophils # 0.0 Basophils # 0.0 PT INR Sodium 144 141 Potassium 3.9 4.0 Chloride 110 H 105 Carbon Dioxide 26 26 BUN 35 H 25 H Creatinine 0.98 1.07 Est GFR ( Amer) > 60 > 60 Est GFR (Non-Af Amer) > 60 > 60 BUN/Creatinine Ratio 36 H 23 Glucose 162 H 141 H Calcium 8.1 L 8.5 L 08/06/17 10:00 WBC 10.6 RBC 2.95 L Hgb 8.7 L Hct 27.0 L MCV 91.5 MCH 29.5 MCHC 32.2 RDW 19.8 H Plt Count 316 MPV 10.0 Neutrophils # Lymphocytes # Monocytes # Eosinophils # Basophils # PT INR Sodium Potassium Chloride Carbon Dioxide BUN Creatinine Est GFR ( Amer) Est GFR (Non-Af Amer) BUN/Creatinine Ratio Glucose Calcium Consult Discharge Plan - Plan Referrals: Heriberto Cerrato DO [Primary Care Provider] -
[2017-08-08] MEDS ORDERED: 0.9 % Sodium Chloride 250 ML ONE ×2 (10:54→13:59)
[2017-08-08] MEDS: Divalproex (24 HR) 250 MG TABLET PO SCH (12:59)
[2017-08-08] MEDS: Diltiazem CD (24hr) 120 MG CAPSULE PO SCH (12:59)
--- NOTE | 2017-08-08 14:09 | Vascular/Endovasc Consult Note ---
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 The patient has a right femoral deep vein thrombosis. He was anticoagulated with Eliquis, but is no longer able to tolerate it due to progressive anemia and hemoptysis. Given his comorbidities, he wound not tolerate a pulmonary embolus. Therefore an inferior vena cava filter has been recommended. The risks, benefits and alternatives were discussed and all questions were answered. He expressed understanding and wishes to proceed. Qualifiers: Chronicity: chronic Qualified Code(s): I82.511 - Chronic embolism and thrombosis of right femoral vein (2) COPD (chronic obstructive pulmonary disease) Current Visit: Yes Status: Chronic Qualifiers: COPD type: emphysema Emphysema type: panlobular Qualified Code(s): J43.1 - Panlobular emphysema (3) Hemoptysis Current Visit: Yes Status: Acute (4) Anemia Current Visit: Yes Status: Chronic Qualifiers: Anemia type: iron deficiency Iron deficiency anemia type: unspecified iron deficiency Qualified Code(s): D50.9 - Iron deficiency anemia, unspecified (5) Essential hypertension Current Visit: Yes Status: Chronic (6) Hyperlipidemia Current Visit: Yes Status: Chronic Qualifiers: Hyperlipidemia type: unspecified Qualified Code(s): E78.5 - Hyperlipidemia , unspecified - History of Present Illness Consult date: 08/08/17 Requesting physician: Shaun Calvillo Consult reason: DVT, hemoptysis, anemia Chief complaint: Hemoptysis History of present illness: Mr. Blanco is a 87 year old male with multiple medical comorbidities who presented to [facility] with hemoptysis and anemia. The patient previously developed a right lower extremity DVT and was treated with anticoagulation using Eliquis. The patient has developed progressive anemia and hemoptysis and anticoagulation now needs to be discontinued. He underwent bronchoscopy and the bleegind source was identified and treated. The patient can no longer tolerate anticoagulation. Vascular surgery was consulted for possible inferior vena cava filter placement. At the time of the evaluation, the patient is alert , appropriate and appears comfortable. Past Med Surg Social Fam HX - Past Medical History Medical history: arthritis, cancer, COPD, coronary artery disease, DVT, GERD, hyperlipidemia, hypertension, other Psychiatric history: depression - Past Surgical History Surgical History: orthopedic, other - Social History Smoking Status: Current every day smoker Smokeless Tobacco Status: No Alcohol use: none, rarely Drug use: none - Family History Mother Living Status: Hx Family Cardiac Disorders: Yes Hx Family Endocrine Disorder: Yes Sister Hx Family Cardiac Disorders: Yes Medications and Allergies Baclofen 20 mg PO BID PRN 07/05/15 [History] Lisinopril [Zestril] 10 mg PO DAILY 07/05/15 [History] Simvastatin [Zocor] 40 mg PO HS 07/05/15 [History] Diclofenac Sodium [Voltaren] 50 mg PO BID 10/22/16 [History] Esomeprazole Magnesium [Nexium] 40 mg PO DAILY 02/05/17 [History] Albuterol Sulfate [Albuterol Inhaler] 2 puff IH QID PRN 03/31/17 [History] Divalproex (24 HR) [Depakote ER (24 HR)] 250 mg PO DAILY 03/31/17 [History] Ferrous Gluconate 324 mg PO BID 03/31/17 [History] Aspirin 81 mg PO DAILY 05/23/17 [History] Cholecalciferol (Vitamin D3) [Vitamin D3] 5,000 unit PO DAILY 05/23/17 [History] Amitriptyline [Elavil] 25 mg PO HS 07/09/17 [History] Apixaban [Eliquis] 5 mg PO TID 07/11/17 [History] Amoxicillin [Amoxicillin] 875 mg PO BID 08/05/17 [History] Ascorbic Acid [Vitamin C] 500 mg PO DAILY 08/05/17 [History] Furosemide [Lasix] 40 mg PO DAILY 08/05/17 [History] Guaifenesin [Mucinex] 600 mg PO Q12H PRN 08/05/17 [History] L. Acidophilus/Pectin, [place] [Acidophilus Probiotic Capsule] 1 each PO BID 03/14 [History] PredniSONE [Deltasone] 20 mg PO DAILY 08/05/17 [History] 3 Allergy/AdvReac Type Severity Reaction Status Date / Time No Known Allergies Allergy Verified 07/22/17 14:45 All Systems Review: A 10-system review of systems was performed and is negative for pertinent findings except as documented above in the HPI. - Constitutional Constitutional: no chills, no fever(s) - Cardiovascular Cardiovascular: no chest pain at rest, no dyspnea at rest - Respiratory Respiratory: cough, hemoptysis Exam Vital Signs, Last 4 Hours Temp Pulse Resp BP Pulse Ox 08/08/17 11:15 97.6 F 66 14 117/58 98 08/08/17 11:00 97.7 F 63 14 110/53 100 08/08/17 10:29 12 113/53 100 08/08/17 10:00 79 14 119/56 99 General: Present: Conversant, No Apparent Distress HEENT: Present: Pupils equal Neck: Absent: JVD, Lymphadenopathy Cardiac: Present: Reg Rate and Rhythm Lungs: Present: Normal Breath Sounds, No Wheeze, Rales, Rhonchi Neuro: Present: Alert and responsive, Motor nerves grossly intact, Sensory nerves grossly intact Abdomen: Present: Soft, Non-tender. Absent: Masses Vascular: Present: Normal capillary refill, Edema (trace right lower extremity) , Color/Temperature (feet warm). Absent: Cyanosis Skin: Present: No rashes noted on visualized skin. Absent: Wound/ulcer(s) Consult Discharge Plan - Plan Referrals: Heriberto Cerrato DO [Primary Care Provider] -
--- NOTE | 2017-08-08 14:52 | Internal Med Progress Note ---
<Erendira Blevins - Last Filed: 08/08/17 14:53> Date of Encounter: 08/08/17 Time of Encounter: 10:40 - Assessment and plan (1) Cough with hemoptysis Current Visit: Yes Status: Acute Assessment and plan: New onset hemoptysis yesterday. Patient required transfusion yesterday with 1 unit PRBCs and hgb peaked and trended back down to 7.7. Today the patient's hemoglobin is 7.2. Will order patient one unit of FFP and PRBCs. Patient was actively bleeding during bronchocopy today. Per documentation, patient has expectorated approximately 1 cc of blood since the procedure. Continue to hold anticoagulation at this time. Vascular surgery was consulted. Per documentation , vascular ssurgery recommended medical management for now, including promotion of INR if possible. (2) Elevated troponin Current Visit: Yes Status: Acute Assessment and plan: Mildly elevated troponin of 0.05 most likely secondary to hypoxia. Patient is currently a symptomatic with no complaints of chest pain. Labs are stable at this time. (3) Shortness of breath Current Visit: Yes Status: Acute Assessment and plan: SOB most likely multifactorial. Patient has a history of COPD, pulmonary fibrosis with superimposed CTA findings of pneumonia. Patient was on 10L of oxygen with 100% saturation after bronchoscopy. Patient was reassessed at approximately 1500 and is now satting at 98% with 2L of oxygen. Patient appears more comfortable but continues to have hemoptysis. We will wean oxygen as tolerated and continue inhalers as prescribed. We will discontinue the IV Zosyn. Elevated WBC of 15.2 may be secondary to increase in steroids. Will continue to monitor the patient closely. (4) Tobacco abuse Current Visit: Yes Status: Acute Assessment and plan: The patient has about a 50 pack year smoking history. Encourage complete smoking cessation. (5) Weakness Current Visit: Yes Status: Acute Assessment and plan: Patient has difficulty with ADLs at home. Patient has difficulty with ambulation most likely exacerbated by shortness of breath. 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 Guerra. Continue to monitor the patient closely. (7) COPD (chronic obstructive pulmonary disease) Current Visit: Yes Status: Chronic Assessment and plan: Patient has a chronic history of COPD. On exam, patient had hundred percent oxygen saturation at 10 L of oxygen. On reassessment at 1500, the patient is satting at 98% on 2 L of oxygen. Continue to monitor the patient closely. Qualifiers: COPD type: emphysema Emphysema type: panlobular Qualified Code(s): J43.1 - Panlobular emphysema (8) IPF (idiopathic pulmonary fibrosis) Current Visit: Yes Status: Chronic Assessment and plan: Stable. (9) 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 Assessment and plan: Anticoagulation is currently held with new onset of hemoptysis yesterday and anemia with Hgb of 7.2. Vascular was consulted. Per documentation, an IVC filter has been recommended given the patient's comorbidities. Continue to monitor the patient closely. Venous imaging is ordered and still pending. Qualifiers: Chronicity: chronic Qualified Code(s): I82.511 - Chronic embolism and thrombosis of right femoral vein - Time Spent With Patient 25 - 35 minutes - Subjective Interval history: The patient was seen and evaluated at bedside this morning after his bronchoscopy. The patient was having active bleeding during his bronchoscopy after a few washes. He is awake and alert, but was coughing up blood. Patient admits he is having difficulty breathing and was on 10 L of oxygen on my exam with oxygen saturation at 98-100%. Patient continued to have hemoptysis after his bronchoscopy today. The patient is afebrile and appears to be in mild distress. - Constitutional Vitals: Temp Pulse Resp BP Pulse Ox 97.9 F 63 14 141/65 98 08/08/17 14:30 08/08/17 14:30 08/08/17 14:30 08/08/17 14:30 08/08/17 14:30 General appearance: Present: cooperative, mild distress, A&O X 3, pleasant, answers questions appropriately - Head Head exam: Present: atraumatic - Eye Eye exam: Present: EOMI, normal appearance, PERRL - Neck Neck exam general surgery: Present: normal inspection. Absent: lymphadenopathy , tenderness - Respiratory Respiratory exam: Present: CTAB. Absent: accessory muscle use, respiratory distress Additional comments: Cough is present on exam. Hemoptysis present on exam. - Cardiovascular Cardiovascular exam: Present: RRR, +S1, +S2. Absent: diastolic murmur, gallop, rubs, systolic murmur - GI/Abdominal GI/Abdominal exam: Present: soft. Absent: distended, guarding, tenderness - Extremities Exam Extremities exam: Present: tenderness (Tenderness to palpation on the right lower extremity. ), warm, radial pulses palpable and symmetrical. Absent: calf tenderness - Neurological Exam Neurological exam: Present: alert, oriented X3. Absent: altered, pronater drift , facial droop, speech deficit - Skin Skin exam: Present: dry, intact, pallor, warm Internal Medicine: Result - Labs CBC & Chem 7: 08/08/17 05:16 08/08/17 05:16 Labs: Short CBC 08/08/17 Range/Units 05:16 WBC 15.2 H (4.3-11.1) K/mcL Hgb 7.2 L (12.9-16.9) g/dL Hct 23.1 L (37.5-50.1) % Plt Count 309 (140-400) K/mcL Neutrophils # 14.2 H (1.6-8.9) K/mcL BMP 08/08/17 05:16 Sodium 142 Potassium 4.1 Chloride 109 H Carbon Dioxide 26 BUN 39 H Creatinine 0.96 Glucose 176 H Calcium 8.4 L Liver Function 08/08/17 Range/Units 05:16 Total Bilirubin 0.3 (0.3-1.0) mg/dL AST 10 L (13-39) Units/L ALT 13 (7-52) Units/L Alkaline Phosphatase 44 (34-104) Units/L Albumin 2.6 L (3.5-5.7) g/dL - ABG Interpretation ABG results: PT/INR, D-dimer PT 19.8 Seconds (9.4-12.1) H 08/07/17 11:27 Consult Discharge Plan - Plan Referrals: Heriberto Cerrato DO [Primary Care Provider] - <Shaun Calvillo - Last Filed: 08/08/17 16:47> Date of Encounter: 08/08/17 - Assessment and plan (1) Respiratory failure with hypoxia Current Visit: Yes Status: Acute Qualifiers: Chronicity: acute on chronic Qualified Code(s): J96.21 - Acute and chronic respiratory failure with hypoxia (2) Cough with hemoptysis Current Visit: Yes Status: Acute (3) Pneumonia Current Visit: Yes Status: Suspected Qualifiers: Pneumonia type: aspiration pneumonia Aspiration pneumonia type: due to gastric secretions Laterality: bilateral Lung location: lower lobe of lung Qualified Code(s): J69.0 - Pneumonitis due to inhalation of food and vomit (4) COPD (chronic obstructive pulmonary disease) Current Visit: Yes Status: Chronic Qualifiers: COPD type: emphysema Emphysema type: panlobular Qualified Code(s): J43.1 - Panlobular emphysema (5) 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 Qualifiers: Chronicity: chronic Qualified Code(s): 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 (7) Essential hypertension Current Visit: Yes Status: Chronic (8) IPF (idiopathic pulmonary fibrosis) Current Visit: Yes Status: Chronic (9) Dysphagia Current Visit: Yes Status: Acute Qualifiers: Dysphagia type: oral phase Qualified Code(s): R13.11 - Dysphagia, oral phase (10) Tobacco abuse Current Visit: Yes Status: Acute - Constitutional Vitals: Temp Pulse Resp BP Pulse Ox 97.9 F 63 14 141/65 98 08/08/17 14:30 08/08/17 14:30 08/08/17 14:30 08/08/17 14:30 08/08/17 14:30 Internal Medicine: Result - Labs CBC & Chem 7: 08/08/17 05:16 08/08/17 05:16 Labs: Short CBC 08/08/17 Range/Units 05:16 WBC 15.2 H (4.3-11.1) K/mcL Hgb 7.2 L (12.9-16.9) g/dL Hct 23.1 L (37.5-50.1) % Plt Count 309 (140-400) K/mcL Neutrophils # 14.2 H (1.6-8.9) K/mcL BMP 08/08/17 05:16 Sodium 142 Potassium 4.1 Chloride 109 H Carbon Dioxide 26 BUN 39 H Creatinine 0.96 Glucose 176 H Calcium 8.4 L Liver Function 08/08/17 Range/Units 05:16 Total Bilirubin 0.3 (0.3-1.0) mg/dL AST 10 L (13-39) Units/L ALT 13 (7-52) Units/L Alkaline Phosphatase 44 (34-104) Units/L Albumin 2.6 L (3.5-5.7) g/dL - ABG Interpretation ABG results: PT/INR, D-dimer PT 19.8 Seconds (9.4-12.1) H 08/07/17 11:27 - Attending Attestation I examined this patient and my medical decision-making was reviewed with the Resident Physician on 08/08/17. I agree with the documented findings, disposition and treatment plan as described except to the extent set forth below. Mr Blanco is currently admitted for hypoxic resp failure and hemoptysis. He is also anemic. He remains moderate to high risk due to potential for worsening clinical status. Mr Blanco had bronch this AM - bleeding present. Unable to find source and stop. Returned to floor - seen by IR and not indicated for angio and coil at this time. Eliquis stopped so he is to have IVC filter today. Bleeding has improved some during the day. Cough syrup being given. Exam alert. Moderate distress with cough Mucus membranes dry Heart reg Coarse rhonchi and rales Abd soft I/P 1. Resp failure 2. Hemoptysis IVC filter today Stop abx - doubt pneumonia Further diagnoses and plan as above.
--- NOTE | 2017-08-08 16:27 | Electrocardiograph Report ---
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
[2017-08-08] MEDS ORDERED: ISOVUE-250 150 ML INFUS..BTL IV ONE (16:51)
--- NOTE | 2017-08-08 17:53 | Invasive Diagnostic Lab Proc ---
Name: Stefano Blanco Date of Study: 08/08/2017 Date: 1930 Ht: 163.0 in Medical Record#: [id number] Age: 87 Wt: 65 lb Gender: Male BSA: 1.7 Order #: [id number] BMI: 24.46 Physicians Performing MD: Erwin Duckworth MD Referring MD: Referring MD: Staff Name Position Time In Ana Madrid RT (R) Scrub Delisa Gonzalez RN Clinical Cytogeneticist Leatha Batista RT (R) Monitor Indications DVT, Unilateral Procedures Performed IVC FILTER PLACEMENT Pre-Procedure Checklist Informed consent is complete signed and on chart. H&P is on chart. ID band is on and ID verified with patient. Patient NPO for procedure The procedure was described for the patient and questions were answered. ECG is on chart. Plan of Care Patient will tolerate the procedure without complications. Adequate level of comfort will be maintained. Hemodynamics will remain stable Patient will recover from procedure without complications. Respiratory function will be maintained. Cardiac rhythm will remain stable. Patient temperature will be maintained. Patient and/or family have verbalized understanding of the procedure. Patient Education Chief Complaint/Reason for Test: IVC filter Developmental Category: Geriatric (65+ years) Learning Barriers: None Education Needs: Procedure Education Method: Verbal Information Taught: IVC filter Educational Evaluation: Able to repeat information Intravenous Access Time IV Size Location DC'd Fluid/Drip Rate Units RN 20g 1 1/4" Patent On Arrival Rt Antecubital 0.9NaCl Allergies No Known Allergies Vital Signs Time BP Systolic BP Diastolic HR O2 Sats ASA 05:25 PM 147 71 64 97 05:30 PM 154 67 57 96 05:35 PM 143 81 68 98 05:40 PM 144 74 80 97 05:46 PM Procedure Medications Time Medication Dose Units Method Route 05:26 PM Oxygen 3 L/min nasal cannula 05:29 PM Lidocaine 2% 10 ml Subcutaneous ASA Classification: CLASS III- Severe systemic disease (i.e. prior AMI, diabetes with vascular complications, morbid obesity) Ryan Score Preprocedure Postprocedure Activity 2- Moves 4 extremities sustained head lift Activity Circulation 2- SBP +/= 20 points of pre-anesthetic level Circulation Consciousness 2- Awake and alert oriented x 3 Consciousness O2 Saturation 2- Able to maintain O2 satruation of 92% on room air O2 Saturation Respiratory 2- Able to deep breathe and cough well Respiratory Total Score 10 Total Score Contrast: Isovue 250- 150ml Contrast Amount: 10 ml Fluoro Dose: 82 mGy Procedure Log Time Note Entered By 05:25 PM Pt arrived to optical laboratory mechanic 1 at 17:25 [facility] 05:25 PM Ana Madrid RT (R) Position: Scrub Time [facility]: 17:25 [email or web address] PM Delisa Gonzalez RN Position: Clinical Cytogeneticist Time in: 17:25 [facility] 05:25 PM Leatha Batista RT (R) Position: Monitor Time in: 17:25 [facility] 05:25 PM Case delayed: [facility] Hair removed from procedure site in holding area using clippers. Bilateral groin prepped with Chloraprep by Leatha Batista RT (R), safety strap applied then patient was draped. Skin intact. [facility] 05:26 PM Physician arrived 17:26 [facility] 04: PM ASA Class CLASS IV- Severe systemic that is constant threat to patient's life [facility] : PM Meet and greet completed [facility] : PM Sign in performed according to hospital policy. [facility] 05:26 PM Procedure start 17:26 [facility] 05: PM 17:26 Oxygen at 3 L/min per nasal cannula by Leatha Batista RT (R) [facility] 05:28 PM ASA Class CLASS III- Severe systemic disease (i.e. prior AMI, diabetes with vascular complications, morbid obesity) [facility] 05:28 PM Time out perfomed [email or web address] 05:28 PM Patient charges- Angio tray pack, Pulse Oximetry and ACIST tubing and transducer [email or web address] 05:28 PM Ultrasound, Sonosite, utilized to obtain vascular access [email or web address] 05:29 PM 17:29 10 ml Lidocaine 2% to right groin Subcutaneous Given By Erwin Duckworth MD [email or web address] 05:29 PM 0.035 180cm Bentson wire utilized to assist with catheter placement [email or web address] 05:30 PM Access obtain and IVC Filter sheath inserted Rt Femoral vein. [email or web address] 05:30 PM Inferiorvenacavagram performed 5mls of contrast. [email or web address] 05:31 PM IVC Filter inserted into the inferior vena cava [email or web address] 05:32 PM IVC Filter deployed into the inferior vena cava [email or web address] 05:32 PM Inferiorvenacavagram performed 5 mls of contrast [email or web address] 05:33 PM Procedure completed at 17:33 [email or web address] 05:34 PM Sign Out completed: Radiation Dose 81.92 mGy Fluoro Time: 0.8 minutes. Isovue 250- 150ml contrast 10 ml given by Erwin Duckworth MD. Complications: None. Confirmed administered medications:Yes [email or web address] 05:34 PM Isovue 250- 150ml,1 bottle(s) used. [email or web address] 05:34 PM Arterial sheath pulled using manual compression and V+Pad for 10 minutes by Ana Madrid RT (R) [email or web address] 05:34 PM Estimated Blood Loss: minimal [email or web address] 05:34 PM Post Blood Pressure: 154/67 [email or web address] 05:34 PM Post EKG: Sinus Bradycardia [email or web address] 05:35 PM Information taught: IVC filter [email or web address] 05:36 PM Education needs: Procedure, Plan of Care, and Disease Process [email or web address] 05:36 PM Learning barriers: None [email or web address] 05:36 PM Education evaluation: Able to repeat information [email or web address] 05:36 PM Patient pain level 0/10 [email or web address] 05:36 PM Delay to floor: No [email or web address] 05:36 PM Pt taken to [facility] Room# 33 [email or web address] 05:36 PM Family placed in consult room. [email or web address] 05:36 PM Complications: None [email or web address] 05:36 PM Fluoro Time: 0.8 minutes [email or web address] 05:36 PM Isovue 250- 150ml contrast 10 ml given by Erwin Duckworth MD [email or web address] 05:37 PM Radiation Dose 81.92 mGy [email or web address] 05:42 PM Report given to Paula FLORES. Pt taken to [facility] Room # 33 17:42 [email or web address] 05:42 PM Site status No bleeding/hematoma - Rt Groin as reported by Ana Madrid RT (R) at 17:42 [email or web address] 05:42 PM Opsite applied [email or web address] 04:53 PM PVIStat 05:24 PM Vitals capture started with the following parameters, Patient=Adult, Interval=5 min, Initial Tzcpjlhi=162 mmHg, Deflation Rate=5 mmHg, Cuff placed on Right Arm 05:24 PM Recorded ECG: HR=53 Condition=Condition 1 05:25 PM HR=64 bpm, QAGT=220/71 mmhg, SpO2=97.0 %, Resp=22 B/min, Comment=SB 05:30 PM HR=57 bpm, UENK=162/67 mmhg, SpO2=96.0 %, Resp=21 B/min, Comment=SB 05:35 PM HR=68 bpm, UEEZ=953/81 mmhg, SpO2=98.0 %, Resp=17 B/min, Comment=SB 05:40 PM HR=80 bpm, SBDV=815/74 mmhg, SpO2=97.0 %, Comment=SB 05:43 PM Patient out of room 17:43 [email or web address] Post Procedure Information Blood Pressure: 154/67 mmHg Rhythm: Sinus Bradycardia Post procedure instructions given Site Checks Time Location Status Staff Sheath In? Note 5:42:00 PM Rt Groin No bleeding/ No Hematoma Ana Madrid RT (R) Pulses Time Site Pre Procedure Post Procedure Note Bilateral DP & PT 1+ 1+ Bilateral radial 2+ Updated by Leatha Batista, RT(R) on 08/08/2017 5:46:37 PM electronically signed on 08/08/2017 5:47:31 PM with status of Final
[2017-08-08 18:27] LABS: Appearance of Body Fluid Cloudy (Clear); Volume of Body Fluid 10 mL
[2017-08-08 19:04] LABS: Appearance of Body Fluid Cloudy (Clear); Volume of Body Fluid 13 mL
[2017-08-09] MEDS: methylPREDNISolone 125 MG/2 ML VIAL IVP SCH ×2 (00:46→09:07)
[2017-08-09 07:36] LABS: INR 1.2; Prothrombin Time 12.9 Seconds (9.4-12.1)
[2017-08-09 07:56] LABS: Basophils % 0.1 %; Hematocrit 28.4 % (37.5-50.1); Immature Granulocytes % 0.7 % (0-4); Lymphocytes # 0.5 K/mcL (0.6-4.6); Lymphocytes % 4.2 %; Mean Corpuscular HGB Conc 31.7 g/dL (31.6-35.5); Mean Corpuscular Hemoglobin 29.3 pg (28.0-33.3); Mean Corpuscular Volume 92.5 fL (83.0-100.0); Mean Platelet Volume 10.3 fL (9.4-12.4); Monocytes # 0.4 K/mcL (0.0-1.3); Monocytes % 2.8 %; Neutrophils # 11.8 K/mcL (1.6-8.9); Nucleated Red Blood Cells 0.5 /100 WBC (0); Platelet Count 308 K/mcL (140-400); Red Blood Count 3.07 M/mcL (4.19-5.50); Red Cell Distribution Width 18.8 % (11.5-14.5); Segmented Neutrophils % 92.2 %
[2017-08-09 08:53] LABS: BUN/Creatinine Ratio 48 (6-26); Blood Urea Nitrogen 40 mg/dL (8-23); Calcium 8.7 mg/dL (8.6-10.3); Carbon Dioxide 27 mEq/L (23-29); Chloride 110 mEq/L (98-107); Glucose 154 mg/dL (70-105); Osmolality,Calculated 313 (280-300); Potassium 4.1 mEq/L (3.5-5.1); Sodium 145 mEq/L (136-145); eGFR For African Americans > 60 (> 60); eGFR For Non-African Americans > 60 (> 60)
[2017-08-09] MEDS: Divalproex (24 HR) 250 MG TABLET PO SCH (09:07)
[2017-08-09] MEDS: Diltiazem CD (24hr) 120 MG CAPSULE PO SCH (09:10)
--- NOTE | 2017-08-09 13:19 | Internal Med Progress Note ---
<Radha Blevins-Veronica - Last Filed: 08/09/17 15:07> Date of Encounter: 08/09/17 Time of Encounter: 11:00 - Assessment and plan (1) Cough with hemoptysis Current Visit: Yes Status: Acute Assessment and plan: New onset hemoptysis on 08/07/17. Pulmonology was consulted on 08/07/17. Per documentation, submassive Hemoptysis likely related to hydrostatic pulmonary edema with CHF complicated by mitral regurgitation with underlying structural lung disease on blood thinning agent. Patient required transfusion yesterday with 1 unit PRBCs and FFP. Today the patient's hemoglobin is 9.0. Patient has expectorated approximately 3-4 cc of blood on my exam. Continue to hold anticoagulation at this time. Vascular surgery was consulted yesterday. Per documentation, vascular surgery recommended medical management for now, including promotion of INR if possible. (2) Elevated troponin Current Visit: Yes Status: Acute Assessment and plan: Mildly elevated troponin of 0.05 most likely secondary to hypoxia. Patient is currently asymptomatic with no complaints of chest pain. Labs are stable at this time. (3) Shortness of breath Current Visit: Yes Status: Acute Assessment and plan: SOB most likely multifactorial. Patient has a history of COPD, pulmonary fibrosis with superimposed CTA findings of pneumonia. Patient is currently on 3L of oxygen with a saturation of 94%. Patient baseline is 2 L of oxygen at home. Patient appears more comfortable but continues to have hemoptysis. We will wean oxygen as tolerated and continue inhalers as prescribed. Elevated WBC of 12.8 today may be secondary to increase in steroids. WBC was 15.2 yesterday. Will continue to monitor the patient closely. (4) Tobacco abuse Current Visit: Yes Status: Acute Assessment and plan: The patient has about a 50 pack year smoking history. Encourage complete smoking cessation. (5) Weakness Current Visit: Yes Status: Acute Assessment and plan: Patient has difficulty with ADLs at home. Patient has difficulty with ambulation most likely exacerbated by shortness of breath. 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 Guerra. Continue to monitor the patient closely. (7) COPD (chronic obstructive pulmonary disease) Current Visit: Yes Status: Chronic Assessment and plan: Patient has a chronic history of COPD dependent on 2 L of home oxygen. Patient is currently 3L of oxygen on the nasal canula with oxygen saturation of 94%. Continue aerosols and steroids. Continue to monitor the patient closely. Qualifiers: COPD type: emphysema Emphysema type: panlobular Qualified Code(s): J43.1 - Panlobular emphysema (8) IPF (idiopathic pulmonary fibrosis) Current Visit: Yes Status: Chronic Assessment and plan: Stable. 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 Vascular was consulted. Bilateral lower extremity venous duplex exam completed. Per preliminary report, it reads positive partial DVT in the right femoral vein and positive SVT in the right LSV. Negative DVT/SVT on left LE. Per documentation, an IVC filter has been recommended given the patient's comorbidities and was placed on 08/08/17 in the right femoral vein. Continue to monitor the patient closely. Qualifiers: Chronicity: chronic Qualified Code(s): I82.511 - Chronic embolism and thrombosis of right femoral vein - Time Spent With Patient Greater than 35 minutes - Subjective Interval history: The patient was seen and evaluated at bedside this morning. He is afebrile, interactive, awake and alert, and in no acute distress. Patient continues to have hemoptysis on exam Patient denies any shortness of breath or difficulty breathing. Patient admits he is comfortable and feels better than compared to yesterday. The patient stated that he had a filter place into his right lower extremity yesterday and stated that he tolerated the procedure well. The patient denies any fever, headache, vision changes, chest pain, abdominal pain, or any weaknesses. Patient has no concerns at this time. - Constitutional Vitals: Temp Pulse Resp BP Pulse Ox 97.6 F 60 14 161/74 93 08/09/17 11:31 08/09/17 11:31 08/09/17 11:31 08/09/17 11:31 08/09/17 11:31 General appearance: Present: cooperative, mild distress, A&O X 3, pleasant, answers questions appropriately - Head Head exam: Present: atraumatic, normal inspection - Eye Eye exam: Present: EOMI, normal appearance, PERRL - ENT ENT exam: Present: mucous membranes moist - Neck Neck exam general surgery: Present: normal inspection. Absent: lymphadenopathy , tenderness - Respiratory Respiratory exam: Present: rales, rhonchi (Course ronchi in the upper lung zamora). Absent: accessory muscle use, chest wall tenderness, respiratory distress Additional comments: Patient continues to have had mopped household personal assistant exam. I measured approximately 3 to 4 cc of hemoptysis on the exam. - Cardiovascular Cardiovascular exam: Present: RRR, +S1, +S4. Absent: diastolic murmur, gallop, rubs, systolic murmur - GI/Abdominal GI/Abdominal exam: Present: soft. Absent: distended, firm, guarding, rebound, tenderness Additional comments: IVC filter placed by IR yesterday by the right femoral vein. Incision intact. No erythema or drainage. Dressing placed. - Neurological Exam Neurological exam: Present: alert, CN II-XII intact, oriented X3, no focal deficits. Absent: altered, pronater drift, facial droop, speech deficit - Skin Skin exam: Present: dry, intact, pallor, warm. Absent: erythema, rash Additional comments: Patient is still pale but he is less pallor compared to yesterday. Internal Medicine: Result - Labs CBC & Chem 7: 08/09/17 07:05 08/09/17 07:05 Labs: Short CBC 08/09/17 Range/Units 07:05 WBC 12.8 H (4.3-11.1) K/mcL Hgb 9.0 L D (12.9-16.9) g/dL Hct 28.4 L (37.5-50.1) % Plt Count 308 (140-400) K/mcL Neutrophils # 11.8 H (1.6-8.9) K/mcL BMP 08/09/17 07:05 Sodium 145 Potassium 4.1 Chloride 110 H Carbon Dioxide 27 BUN 40 H Creatinine 0.84 Glucose 154 H Calcium 8.7 - ABG Interpretation ABG results: PT/INR, D-dimer PT 12.9 Seconds (9.4-12.1) H 08/09/17 07:05 Consult Discharge Plan - Plan Referrals: Heriberto Cerrato DO [Primary Care Provider] - <Pal Dowd H - Last Filed: 08/09/17 15:46> Date of Encounter: 08/09/17 - Constitutional Vitals: Temp Pulse Resp BP Pulse Ox 98.0 F 74 20 147/66 90 08/09/17 14:49 08/09/17 14:49 08/09/17 14:49 08/09/17 14:49 08/09/17 14:49 Internal Medicine: Result - Labs CBC & Chem 7: 08/09/17 07:05 08/09/17 07:05 Labs: Short CBC 08/09/17 Range/Units 07:05 WBC 12.8 H (4.3-11.1) K/mcL Hgb 9.0 L D (12.9-16.9) g/dL Hct 28.4 L (37.5-50.1) % Plt Count 308 (140-400) K/mcL Neutrophils # 11.8 H (1.6-8.9) K/mcL BMP 08/09/17 07:05 Sodium 145 Potassium 4.1 Chloride 110 H Carbon Dioxide 27 BUN 40 H Creatinine 0.84 Glucose 154 H Calcium 8.7 - ABG Interpretation ABG results: PT/INR, D-dimer PT 12.9 Seconds (9.4-12.1) H 08/09/17 07:05 - Attending Attestation Hemoptysis likely exacerbated by Eliquis Monitor for the next day or 2 Consider discharge once hemoptysis stops Stop all Solu-Medrol and start prednisone, needs to be chronically on prednisone due to history of hemolytic anemia I examined this patient and my medical decision-making was reviewed with the Resident Physician. I agree with the documented findings, disposition and treatment plan as described except to the extent set forth below.
[2017-08-09] MEDS: Benzonatate 100 MG CAPSULE PO PRN (22:33)
[2017-08-10 04:23] LABS: Basophils % 0.2 %; Hematocrit 26.6 % (37.5-50.1); Hemoglobin 8.5 g/dL (12.9-16.9); Immature Granulocytes % 1.9 % (0-4); Lymphocytes # 0.8 K/mcL (0.6-4.6); Lymphocytes % 5.4 %; Mean Corpuscular Hemoglobin 29.2 pg (28.0-33.3); Mean Corpuscular Volume 91.4 fL (83.0-100.0); Mean Platelet Volume 10.3 fL (9.4-12.4); Monocytes # 0.8 K/mcL (0.0-1.3); Monocytes % 5.4 %; Neutrophils # 13.5 K/mcL (1.6-8.9); Nucleated Red Blood Cells 0.2 /100 WBC (0); Platelet Count 293 K/mcL (140-400); Red Blood Count 2.91 M/mcL (4.19-5.50); Red Cell Distribution Width 18.4 % (11.5-14.5); Segmented Neutrophils % 87.1 %
[2017-08-10 04:57] LABS: Alanine Aminotransferase 49 Units/L (7-52); Albumin 2.7 g/dL (3.5-5.7); Alkaline Phosphatase 51 Units/L (34-104); Aspartate Amino Transferase 15 Units/L (13-39); BUN/Creatinine Ratio 49 (6-26); Bilirubin,Total 0.3 mg/dL (0.3-1.0); Blood Urea Nitrogen 43 mg/dL (8-23); Calcium 8.8 mg/dL (8.6-10.3); Carbon Dioxide 28 mEq/L (23-29); Chloride 108 mEq/L (98-107); Globulin 2.7 g/dL (2.4-3.5); Glucose 167 mg/dL (70-105); Osmolality,Calculated 309 (280-300); Potassium 4.4 mEq/L (3.5-5.1); Sodium 142 mEq/L (136-145); Total Protein 5.4 g/dL (6.4-8.9); eGFR For African Americans > 60 (> 60); eGFR For Non-African Americans > 60 (> 60)
[2017-08-10] MEDS: Diltiazem CD (24hr) 120 MG CAPSULE PO SCH (09:21)
[2017-08-10] MEDS: Divalproex (24 HR) 250 MG TABLET PO SCH (09:21)
[2017-08-10] MEDS: predniSONE 20 MG TABLET PO SCH (09:21)
--- NOTE | 2017-08-10 10:02 | Internal Med Progress Note ---
<Radha Blevins-Veronica - Last Filed: 08/10/17 10:00> Date of Encounter: 08/10/17 Time of Encounter: 10:00 - Assessment and plan (1) Cough with hemoptysis Current Visit: Yes Status: Acute Assessment and plan: New onset hemoptysis on 08/07/17. Pulmonology was consulted on 08/07/17. Per documentation, submassive Hemoptysis likely related to hydrostatic pulmonary edema with CHF complicated by mitral regurgitation with underlying structural lung disease on blood thinning agent. Today the patient's hemoglobin is 8.5. Patient has expectorated approximately 4 cc of blood on my exam. Continue to hold anticoagulation at this time. Per documentation, vascular surgery recommended medical management for now, including promotion of INR if possible. (2) Elevated troponin Current Visit: Yes Status: Acute Assessment and plan: Mildly elevated troponin of 0.05 most likely secondary to hypoxia. Patient is currently asymptomatic with no complaints of chest pain. Labs are stable at this time. (3) Shortness of breath Current Visit: Yes Status: Acute Assessment and plan: SOB most likely multifactorial. Patient has a history of COPD, pulmonary fibrosis with superimposed CTA findings of pneumonia. Patient is currently on 4L of oxygen with a saturation of 90%. Patient baseline is 2 L of oxygen at home. Patient continues to have hemoptysis. We will wean oxygen as tolerated and continue inhalers as prescribed. Elevated WBC of 15.5 today. WBC was 12.8 yesterday. Will continue to monitor the patient closely. (4) Tobacco abuse Current Visit: Yes Status: Acute Assessment and plan: The patient has about a 50 pack year smoking history. Encourage complete smoking cessation. (5) Weakness Current Visit: Yes Status: Acute Assessment and plan: Patient has difficulty with ADLs at home. Patient has difficulty with ambulation most likely exacerbated by shortness of breath. 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 Guerra. Continue to monitor the patient closely. Patient was placed back on 40 mg oral prednisone daily. Solu-Medrol was discontinued. (7) COPD (chronic obstructive pulmonary disease) Current Visit: Yes Status: Chronic Assessment and plan: Patient has a chronic history of COPD dependent on 2 L of home oxygen. Patient is currently 4L of oxygen on the nasal canula with oxygen saturation of 90%. Continue aerosols and steroids. Continue to monitor the patient closely. Qualifiers: COPD type: emphysema Emphysema type: panlobular Qualified Code(s): J43.1 - Panlobular emphysema (8) IPF (idiopathic pulmonary fibrosis) Current Visit: Yes Status: Chronic Assessment and plan: Stable. 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 Vascular was consulted. Bilateral lower extremity venous duplex exam completed. Per preliminary report, it reads positive partial DVT in the right femoral vein and positive SVT in the right LSV. Negative DVT/SVT on left LE. Per documentation, an IVC filter has been recommended given the patient's comorbidities and was placed on 08/08/17 in the right femoral vein. Continue to monitor the patient closely. Qualifiers: Chronicity: chronic Qualified Code(s): I82.511 - Chronic embolism and thrombosis of right femoral vein - Subjective Interval history: The patient was seen and evaluated at bedside this morning. He is afebrile, interactive, awake and alert, and in no acute distress. Patient continues to have hemoptysis on exam Patient states that he does not feel well today. He states that he feels like he is coughing up more blood overnight. The patient states that he feels more tired and admits shortness of breath. However, he denies any difficulty breathing. The patient denies any fever, headache, vision changes, chest pain, abdominal pain, or any weaknesses. Patient has no concerns at this time. - Constitutional Vitals: Temp Pulse Resp BP Pulse Ox 97.6 F 58 14 159/67 91 08/10/17 07:27 08/10/17 07:27 08/10/17 07:27 08/10/17 07:27 08/10/17 07:27 General appearance: Present: cooperative, mild distress, A&O X 3, pleasant, answers questions appropriately - Head Head exam: Present: atraumatic - Eye Eye exam: Present: EOMI, normal appearance, PERRL - Neck Neck exam general surgery: Present: normal inspection. Absent: lymphadenopathy , tenderness - Respiratory Respiratory exam: Present: rales, rhonchi. Absent: accessory muscle use, chest wall tenderness, respiratory distress, wheezes, tachypnea Additional comments: Patient oxygen saturation at 90% or 4 L of nasal cannula oxygen. Patient does not appear to have increased work of breathing. - Expanded Respiratory Exam Location: rales: Right, Lower, rhonchi: Left, Right, Upper - Cardiovascular Cardiovascular exam: Present: RRR, +S1, +S2. Absent: gallop, rubs, systolic murmur - GI/Abdominal GI/Abdominal exam: Present: soft. Absent: distended, guarding, tenderness - Extremities Exam Extremities exam: Present: warm, radial pulses palpable and symmetrical. Absent : calf tenderness, tenderness - Neurological Exam Neurological exam: Present: alert, CN II-XII intact, oriented X3. Absent: altered, pronater drift, facial droop, speech deficit - Skin Skin exam: Present: dry, pallor, warm Internal Medicine: Result - Labs CBC & Chem 7: 08/10/17 03:51 08/10/17 03:51 Labs: Short CBC 08/10/17 Range/Units 03:51 WBC 15.5 H (4.3-11.1) K/mcL Hgb 8.5 L (12.9-16.9) g/dL Hct 26.6 L (37.5-50.1) % Plt Count 293 (140-400) K/mcL Neutrophils # 13.5 H (1.6-8.9) K/mcL BMP 08/10/17 03:51 Sodium 142 Potassium 4.4 Chloride 108 H Carbon Dioxide 28 BUN 43 H Creatinine 0.87 Glucose 167 H Calcium 8.8 Liver Function 08/10/17 Range/Units 03:51 Total Bilirubin 0.3 (0.3-1.0) mg/dL AST 15 (13-39) Units/L ALT 49 (7-52) Units/L Alkaline Phosphatase 51 (34-104) Units/L Albumin 2.7 L (3.5-5.7) g/dL - ABG Interpretation ABG results: PT/INR, D-dimer PT 12.9 Seconds (9.4-12.1) H 08/09/17 07:05 Consult Discharge Plan - Plan Referrals: Heriberto Cerrato DO [Primary Care Provider] - <Pal Dowd H - Last Filed: 08/10/17 10:21> Date of Encounter: 08/10/17 - Constitutional Vitals: Temp Pulse Resp BP Pulse Ox 97.6 F 58 14 159/67 91 08/10/17 07:27 08/10/17 07:27 08/10/17 07:27 08/10/17 07:27 08/10/17 07:27 Internal Medicine: Result - Labs CBC & Chem 7: 08/10/17 03:51 08/10/17 03:51 Labs: Short CBC 08/10/17 Range/Units 03:51 WBC 15.5 H (4.3-11.1) K/mcL Hgb 8.5 L (12.9-16.9) g/dL Hct 26.6 L (37.5-50.1) % Plt Count 293 (140-400) K/mcL Neutrophils # 13.5 H (1.6-8.9) K/mcL BMP 08/10/17 03:51 Sodium 142 Potassium 4.4 Chloride 108 H Carbon Dioxide 28 BUN 43 H Creatinine 0.87 Glucose 167 H Calcium 8.8 Liver Function 08/10/17 Range/Units 03:51 Total Bilirubin 0.3 (0.3-1.0) mg/dL AST 15 (13-39) Units/L ALT 49 (7-52) Units/L Alkaline Phosphatase 51 (34-104) Units/L Albumin 2.7 L (3.5-5.7) g/dL - ABG Interpretation ABG results: PT/INR, D-dimer PT 12.9 Seconds (9.4-12.1) H 08/09/17 07:05 - Attending Attestation Recurrent hemoptysis even after being off Eliquis. We will inform the pulmonary service for further recommendations Start Levaquin I examined this patient and my medical decision-making was reviewed with the Resident Physician. I agree with the documented findings, disposition and treatment plan as described except to the extent set forth below.
[2017-08-10] MEDS ORDERED: Levofloxacin 750 MG/150 ML 750 MG/150 ML BAG IVPB SCH (11:00)
--- NOTE | 2017-08-10 13:48 | Pulmonology Progress Note ---
Date of Encounter: 08/10/17 Time of Encounter: 13:15 Assessment and Plan (1) Hemoptysis Current Visit: Yes Status: Acute Patient continue to have hemoptysis and he had bronchoscopy with partial response, discussed the case with interventional radiologist with resident from primary team and apparently there is no prominent vessel to embolize for that reason we will keep patient nothing by mouth postmidnight and reexamine his airway tomorrow. I have explained this to the patient and he agrees with the plan. Continue monitoring H&H. If the hemoptysis worsens and he might need to be intubated to isolate the right side of the lung. Subjective Principal diagnosis: Hemoptysis Interval history: Patient continued to have hemoptysis but less than before bronchoscopy Objective PUL Vital signs: Last Vital Signs Temp 97.6 F 08/10/17 11:25 Pulse 62 08/10/17 11:25 Resp 14 08/10/17 07:27 BP 158/65 08/10/17 11:25 Pulse Ox 91 08/10/17 11:25 General appearance: no acute distress Eyes: nonicteric Neck: supple Effort: normal Auscultation: bilateral: diminished breath sounds Percussion: bilateral: not dull Cardiovascular: regular rate and rhythm Gastrointestinal: normoactive bowel sounds, non-distended Extremities: no cyanosis normal mental status, non-focal exam depressed Results - Laboratory Findings CBC and BMP: 08/10/17 03:51 08/10/17 03:51 PT/INR, D-dimer PT 12.9 Seconds (9.4-12.1) H 08/09/17 07:05 Abnormal lab findings: Abnormal lab results WBC 15.5 K/mcL (4.3-11.1) H 08/10/17 03:51 RBC 2.91 M/mcL (4.19-5.50) L 08/10/17 03:51 Hgb 8.5 g/dL (12.9-16.9) L 08/10/17 03:51 Hct 26.6 % (37.5-50.1) L 08/10/17 03:51 RDW 18.4 % (11.5-14.5) H 08/10/17 03:51 Neutrophils # 13.5 K/mcL (1.6-8.9) H 08/10/17 03:51 Nucleated RBCs/100 WBC 0.2 /100 WBC (0) H 08/10/17 03:51 PT 12.9 Seconds (9.4-12.1) H 08/09/17 07:05 Chloride 108 mEq/L (98-107) H 08/10/17 03:51 BUN 43 mg/dL (8-23) H 08/10/17 03:51 BUN/Creatinine Ratio 49 (6-26) H 08/10/17 03:51 Glucose 167 mg/dL (70-105) H 08/10/17 03:51 POC Glucose 164 (58-89) H 08/10/17 01:10 Calculated Osmolality 309 (280-300) H 08/10/17 03:51 Troponin I 0.05 ng/mL (< 0.04) H* 08/05/17 16:30 B-Natriuretic Peptide 239 pg/mL (Less than 100) H 08/05/17 16:30 Serum Total Protein 5.4 g/dL (6.4-8.9) L 08/10/17 03:51 Albumin 2.7 g/dL (3.5-5.7) L 08/10/17 03:51 Albumin/Globulin Ratio 1.0 (1.1-2.2) L 08/10/17 03:51 Fluid Appearance Cloudy (Clear) A 08/08/17 10:23 - Microbiology Findings Microbiology Findings: Microbiology, Last 48 Hours 08/08/17 10:23 Acid Fast Stain - Final Right Lower Lobe Lung 08/08/17 10:23 Acid Fast Stain - Final Left Lower Lobe Lung 08/08/17 10:23 Gram Stain - Final Left Lower Lobe Lung 08/08/17 10:23 Respiratory Culture - Preliminary Right Lower Lobe Lung Normal upper respiratory tract ami. No apparent pathogens isolated. 08/08/17 10:23 Respiratory Culture - Preliminary Left Lower Lobe Lung Normal upper respiratory tract ami. No apparent pathogens isolated. 08/08/17 10:23 Gram Stain - Final Right Lower Lobe Lung - Clinical Findings Intake & Output: Intake & Output 08/09/17 08/10/17 08/10/17 23:59 07:59 15:59 Intake Total 240 / 240 0 / 0 480 / 480 Output Total 550 / 550 300 / 300 Balance 240 / 240 -550 / -550 180 / 180 Consult Discharge Plan - Plan Referrals: Heriberto Cerrato DO [Primary Care Provider] -
[2017-08-10] MEDS: Benzonatate 100 MG CAPSULE PO PRN (20:58)
[2017-08-11 03:16] LABS: Basophils % 0.2 %; Hematocrit 28.4 % (37.5-50.1); Hemoglobin 8.9 g/dL (12.9-16.9); Immature Granulocytes % 2.4 % (0-4); Mean Corpuscular HGB Conc 31.3 g/dL (31.6-35.5); Mean Corpuscular Hemoglobin 28.7 pg (28.0-33.3); Mean Corpuscular Volume 91.6 fL (83.0-100.0); Mean Platelet Volume 10.4 fL (9.4-12.4); Monocytes # 0.8 K/mcL (0.0-1.3); Monocytes % 5.1 %; Neutrophils # 14.1 K/mcL (1.6-8.9); Nucleated Red Blood Cells 0.2 /100 WBC (0); Platelet Count 337 K/mcL (140-400); Red Cell Distribution Width 17.7 % (11.5-14.5); Segmented Neutrophils % 86.3 %
[2017-08-11 03:34] LABS: Alanine Aminotransferase 37 Units/L (7-52); Albumin 2.6 g/dL (3.5-5.7); Albumin/Globulin Ratio 0.9 (1.1-2.2); Alkaline Phosphatase 51 Units/L (34-104); Aspartate Amino Transferase 13 Units/L (13-39); BUN/Creatinine Ratio 44 (6-26); Bilirubin,Total 0.3 mg/dL (0.3-1.0); Blood Urea Nitrogen 35 mg/dL (8-23); Calcium 8.6 mg/dL (8.6-10.3); Carbon Dioxide 28 mEq/L (23-29); Chloride 104 mEq/L (98-107); Globulin 2.8 g/dL (2.4-3.5); Glucose 159 mg/dL (70-105); Osmolality,Calculated 299 (280-300); Potassium 4.7 mEq/L (3.5-5.1); Sodium 139 mEq/L (136-145); Total Protein 5.4 g/dL (6.4-8.9); eGFR For African Americans > 60 (> 60); eGFR For Non-African Americans > 60 (> 60)
[2017-08-11] MEDS ORDERED: *HR* Midazolam HCl 5 MG/5 ML VIAL IVP ONE (08:32)
[2017-08-11] MEDS ORDERED: Lidocaine Viscous Oral Soln 15 ML SOLUTION ONE (08:32)
[2017-08-11] MEDS ORDERED: *HR* FentaNYL (PF) 100 MCG/2 ML VIAL ONE (08:32)
[2017-08-11] MEDS: Divalproex (24 HR) 250 MG TABLET PO SCH (09:09)
[2017-08-11] MEDS: predniSONE 20 MG TABLET PO SCH (09:09)
[2017-08-11] MEDS: Diltiazem CD (24hr) 120 MG CAPSULE PO SCH (09:09)
[2017-08-11] MEDS ORDERED: Nystatin SUSP 5 ML UD.LIQ PO SCH (09:30)
[2017-08-11] MEDS ORDERED: Tetracaine/Benzocaine/Butamben 200MG/SPRAY (100SPY/BOT) MM ONE (09:36)
[2017-08-11] MEDS ORDERED: Albuterol 2.5 MG/3 ML NEBULIZER IH ONE (09:36)
[2017-08-11] MEDS ORDERED: Lidocaine Viscous Oral Soln 15 ML SOLUTION MM ONE (09:36)
[2017-08-11] MEDS ORDERED: *HR* FentaNYL (PF) 100 MCG/2 ML VIAL IVP ONE (09:36)
[2017-08-11] MEDS ORDERED: *HR* Midazolam HCl 2 MG/2 ML VIAL IVP ONE (09:36)
[2017-08-11] MEDS ORDERED: *HR* EPINEPHrine 1 MG/10 ML SYRINGE INTRATRACH PRN (09:36)
--- NOTE | 2017-08-11 09:36 | Pre-Sedation Evaluation ---
Pre-sedation evaluation - Pre-sedation checklist Date of procedure: 08/08/17 Procedure: Bronchoscopy Recent Vitals: Last Vital Signs Temp 97.7 F 08/11/17 07:00 Pulse 71 08/11/17 07:00 Resp 18 08/11/17 07:00 BP 159/68 08/11/17 07:00 Pulse Ox 88 08/11/17 07:00 H&P (including ROS) documented in medical record: Yes Previous reaction to sedatives/anesthetics: No Dietary Status: NPO after Midnight Dentition: dentures removed Possible difficult airway: No ASA Classification *see protocol: CLASS III-Severe systemic disease Plan of Care: Pt appropriate candidate for procedure/moderate/conscious sedation , Risks/benefits of procedure/sedation discussed w/ patient/family
[2017-08-11] MEDS ORDERED: 0.9 % Sodium Chloride 1,000 ML IVC SCH (09:45)
--- NOTE | 2017-08-11 10:04 | Internal Med Progress Note ---
<Radha Blevins-Veronica - Last Filed: 08/11/17 10:36> Date of Encounter: 08/11/17 Time of Encounter: 09:40 - Assessment and plan (1) Cough with hemoptysis Current Visit: Yes Status: Acute Assessment and plan: New onset hemoptysis on 08/07/17. Pulmonology was consulted on 08/07/17. Per documentation, submassive Hemoptysis likely related to hydrostatic pulmonary edema with CHF complicated by mitral regurgitation with underlying structural lung disease on blood thinning agent. Today the patient's hemoglobin is 8.9. Patient is stable. Patient has expectorated approximately 4 cc of blood on my exam. Continue to hold anticoagulation at this time. Per documentation, vascular surgery recommended medical management for now, including promotion of INR if possible. Per documentation, brochoscopy will be completed today to reexamine his airway. Continue monitoring H&H. (2) Elevated troponin Current Visit: Yes Status: Acute Assessment and plan: Mildly elevated troponin of 0.05 most likely secondary to hypoxia. Patient is currently asymptomatic with no complaints of chest pain. Labs are stable at this time. (3) Shortness of breath Current Visit: Yes Status: Acute Assessment and plan: SOB most likely multifactorial. Patient has a history of COPD, pulmonary fibrosis with superimposed CTA findings of pneumonia. Patient is currently on 4L of oxygen with a saturation of 94%. Patient baseline is 2 L of oxygen at home. Patient continues to have hemoptysis. We will wean oxygen as tolerated and continue inhalers as prescribed. Elevated WBC of 16.3 today. WBC was 15.5 yesterday. Continue patient on Levaquin. Will continue to monitor the patient closely. (4) Tobacco abuse Current Visit: Yes Status: Acute Assessment and plan: The patient has about a 50 pack year smoking history. Encourage complete smoking cessation. (5) Weakness Current Visit: Yes Status: Acute Assessment and plan: Patient has difficulty with ADLs at home. Patient has difficulty with ambulation most likely exacerbated by shortness of breath. 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 Guerra. Continue to monitor the patient closely. Patient was placed back on 40 mg oral prednisone daily. Solu-Medrol was discontinued. (7) COPD (chronic obstructive pulmonary disease) Current Visit: Yes Status: Chronic Assessment and plan: Patient has a chronic history of COPD dependent on 2 L of home oxygen. Patient is currently 4L of oxygen on the nasal canula with oxygen saturation of 94%. Continue aerosols and steroids. Continue to monitor the patient closely. Qualifiers: COPD type: emphysema Emphysema type: panlobular Qualified Code(s): J43.1 - Panlobular emphysema (8) IPF (idiopathic pulmonary fibrosis) Current Visit: Yes Status: Chronic Assessment and plan: Stable. 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 Vascular was consulted. Bilateral lower extremity venous duplex exam completed. Per preliminary report, it reads positive partial DVT in the right femoral vein and positive SVT in the right LSV. Negative DVT/SVT on left LE. Per documentation, an IVC filter has been recommended given the patient's comorbidities and was placed on 08/08/17 in the right femoral vein. Continue to monitor the patient closely. Qualifiers: Chronicity: chronic Qualified Code(s): I82.511 - Chronic embolism and thrombosis of right femoral vein (10) Thrush, oral Current Visit: Yes Status: Acute Assessment and plan: Thrush was present on exam. Will order Nystatin suspension 5ml. Continue to monitor the patient closely. - Time Spent With Patient 25 - 35 minutes - Subjective Interval history: The patient was seen and evaluated at bedside this morning. He is afebrile, interactive, awake and alert, and in no acute distress. Patient continues to have hemoptysis on exam Patient states that he does not feel well today. He states that he feels tired and "like I have no energy". He states that he feels like he is coughing up more blood. The patient admits shortness of breath and difficulty breathing today. The patient denies any fever, vision changes, chest pain, abdominal pain, or any weaknesses. Patient has no concerns at this time. - Constitutional Vitals: Temp Pulse Resp BP Pulse Ox 97.7 F 71 18 159/68 88 08/11/17 07:00 08/11/17 07:00 08/11/17 07:00 08/11/17 07:00 08/11/17 07:00 General appearance: Present: cooperative, mild distress, A&O X 3, pleasant, answers questions appropriately - Head Head exam: Present: atraumatic - Eye Eye exam: Present: EOMI, normal appearance, PERRL - ENT ENT exam: Present: mucous membranes moist Additional comments: Thrush is present on his tongue. - Neck Neck exam general surgery: Present: supple. Absent: lymphadenopathy, tenderness - Respiratory Respiratory exam: Present: decreased breath sounds. Absent: accessory muscle use, chest wall tenderness, respiratory distress, rhonchi, wheezes - Expanded Respiratory Exam Location: decreased breath sounds: Left, Right, Lower - Cardiovascular Cardiovascular exam: Present: RRR, +S1, +S2. Absent: bradycardia, gallop, rubs , systolic murmur, tachycardia - GI/Abdominal GI/Abdominal exam: Present: soft. Absent: distended, firm, guarding, rebound, tenderness - Extremities Exam Extremities exam: Present: warm, radial pulses palpable and symmetrical. Absent : calf tenderness, pedal edema, tenderness - Neurological Exam Neurological exam: Present: alert, CN II-XII intact, oriented X3, no focal deficits. Absent: pronater drift, facial droop, speech deficit - Skin Skin exam: Present: dry, intact, pallor, warm Internal Medicine: Result - Labs CBC & Chem 7: 08/11/17 02:35 08/11/17 02:35 Labs: Short CBC 08/11/17 Range/Units 02:35 WBC 16.3 H (4.3-11.1) K/mcL Hgb 8.9 L (12.9-16.9) g/dL Hct 28.4 L (37.5-50.1) % Plt Count 337 (140-400) K/mcL Neutrophils # 14.1 H (1.6-8.9) K/mcL BMP 08/11/17 02:35 Sodium 139 Potassium 4.7 Chloride 104 Carbon Dioxide 28 BUN 35 H Creatinine 0.79 Glucose 159 H Calcium 8.6 Liver Function 08/11/17 Range/Units 02:35 Total Bilirubin 0.3 (0.3-1.0) mg/dL AST 13 (13-39) Units/L ALT 37 (7-52) Units/L Alkaline Phosphatase 51 (34-104) Units/L Albumin 2.6 L (3.5-5.7) g/dL - ABG Interpretation ABG results: PT/INR, D-dimer PT 12.9 Seconds (9.4-12.1) H 08/09/17 07:05 Consult Discharge Plan - Plan Referrals: Heriberto Cerrato DO [Primary Care Provider] - <Pal Dowd H - Last Filed: 08/11/17 11:18> Date of Encounter: 08/11/17 - Constitutional Vitals: Temp Pulse Resp BP Pulse Ox 97.7 F 94 18 157/74 94 08/11/17 10:47 08/11/17 10:47 08/11/17 10:47 08/11/17 10:47 08/11/17 10:47 Internal Medicine: Result - Labs CBC & Chem 7: 08/11/17 02:35 08/11/17 02:35 Labs: Short CBC 08/11/17 Range/Units 02:35 WBC 16.3 H (4.3-11.1) K/mcL Hgb 8.9 L (12.9-16.9) g/dL Hct 28.4 L (37.5-50.1) % Plt Count 337 (140-400) K/mcL Neutrophils # 14.1 H (1.6-8.9) K/mcL BMP 08/11/17 02:35 Sodium 139 Potassium 4.7 Chloride 104 Carbon Dioxide 28 BUN 35 H Creatinine 0.79 Glucose 159 H Calcium 8.6 Liver Function 08/11/17 Range/Units 02:35 Total Bilirubin 0.3 (0.3-1.0) mg/dL AST 13 (13-39) Units/L ALT 37 (7-52) Units/L Alkaline Phosphatase 51 (34-104) Units/L Albumin 2.6 L (3.5-5.7) g/dL - ABG Interpretation ABG results: PT/INR, D-dimer PT 12.9 Seconds (9.4-12.1) H 08/09/17 07:05 - Attending Attestation The patient underwent a second bronchoscopy that were not able to localize the source of bleeding. Dr. Golden contacted the interventional radiology but they do not think they will be able to localize the source. The patient was explained options of staying here or being transferred to [facility] or other facility and he decided to proceed with a transfer. At this point he is a stable but still bleeding. We will work on transferring this patient to a higher care facility I examined this patient and my medical decision-making was reviewed with the Resident Physician. I agree with the documented findings, disposition and treatment plan as described except to the extent set forth below.
[2017-08-11] MEDS ORDERED: Ipratropium/Albuterol Neb 3 ML ONE (10:35)
[2017-08-11 10:54] VITALS: BP 157/74
--- NOTE | 2017-08-11 11:16 | Pulmonology Progress Note ---
Date of Encounter: 08/11/17 Time of Encounter: 09:45 Assessment and Plan (1) Hemoptysis Current Visit: Yes Status: Acute Patient continued to have hemoptysis and even though it is less after bronchoscopy, but remain active. Bronchoscopy was done and after that I discussed with interventional radiologist and is still there is a possibility in their opinion it will not be successful. Consulted cardiothoracic Dr. Fall for further recommendations and discussed with primary team after Dr. Fall's evaluation to communicate with interventional radiology again or consider transferring patient to [place] is no intervention can be done at [facility]. Discussed with patient and his family at the bedside who is known to me. Subjective Principal diagnosis: Hemoptysis Interval history: Patient continued to have hemoptysis Objective PUL Vital signs: Last Vital Signs Temp 97.7 F 08/11/17 10:47 Pulse 94 08/11/17 10:47 Resp 18 08/11/17 10:47 BP 157/74 08/11/17 10:47 Pulse Ox 94 08/11/17 10:47 General appearance: no acute distress Eyes: nonicteric ENT: oropharynx moist Mallampati (class): 2 Neck: supple Effort: normal Auscultation: left: rales, right: diminished breath sounds Percussion: bilateral: not dull Cardiovascular: regular rate and rhythm Gastrointestinal: normoactive bowel sounds, non-distended Extremities: no cyanosis normal mental status, non-focal exam Results - Laboratory Findings CBC and BMP: 08/11/17 02:35 08/11/17 02:35 PT/INR, D-dimer PT 12.9 Seconds (9.4-12.1) H 08/09/17 07:05 Abnormal lab findings: Abnormal lab results WBC 16.3 K/mcL (4.3-11.1) H 08/11/17 02:35 RBC 3.10 M/mcL (4.19-5.50) L 08/11/17 02:35 Hgb 8.9 g/dL (12.9-16.9) L 08/11/17 02:35 Hct 28.4 % (37.5-50.1) L 08/11/17 02:35 MCHC 31.3 g/dL (31.6-35.5) L 08/11/17 02:35 RDW 17.7 % (11.5-14.5) H 08/11/17 02:35 Neutrophils # 14.1 K/mcL (1.6-8.9) H 08/11/17 02:35 Nucleated RBCs/100 WBC 0.2 /100 WBC (0) H 08/11/17 02:35 PT 12.9 Seconds (9.4-12.1) H 08/09/17 07:05 BUN 35 mg/dL (8-23) H 08/11/17 02:35 BUN/Creatinine Ratio 44 (6-26) H 08/11/17 02:35 Glucose 159 mg/dL (70-105) H 08/11/17 02:35 POC Glucose 137 (58-89) H 08/11/17 05:38 Troponin I 0.05 ng/mL (< 0.04) H* 08/05/17 16:30 B-Natriuretic Peptide 239 pg/mL (Less than 100) H 08/05/17 16:30 Serum Total Protein 5.4 g/dL (6.4-8.9) L 08/11/17 02:35 Albumin 2.6 g/dL (3.5-5.7) L 08/11/17 02:35 Albumin/Globulin Ratio 0.9 (1.1-2.2) L 08/11/17 02:35 Fluid Appearance Cloudy (Clear) A 08/08/17 10:23 - Microbiology Findings Microbiology Findings: Microbiology, Last 48 Hours 08/08/17 10:23 Respiratory Culture - Preliminary Right Lower Lobe Lung Yeast Species 08/08/17 10:23 Respiratory Culture - Preliminary Left Lower Lobe Lung Yeast Species 08/08/17 10:23 Acid Fast Stain - Final Right Lower Lobe Lung 08/08/17 10:23 Acid Fast Stain - Final Left Lower Lobe Lung 08/08/17 10:23 Gram Stain - Final Left Lower Lobe Lung - Clinical Findings Intake & Output: Intake & Output 08/10/17 08/11/17 08/11/17 23:59 07:59 15:59 Intake Total 0 / 0 0 / 0 Output Total 225 / 225 425 / 425 Balance -225 / -225 -425 / -425 Weight 65.9 kg Consult Discharge Plan - Plan Referrals: Heriberto Cerrato, [Primary Care Provider] -
--- NOTE | 2017-08-11 11:43 | Discharge Summary ---
<Radha Blevins-Veronica - Last Filed: 08/11/17 13:36> Date of Encounter: 08/11/17 Time of Encounter: 11:42 - Discharge Diagnosis (1) Cough with hemoptysis Priority: Primary Status: Acute (2) Elevated troponin Priority: Primary Status: Acute (3) Shortness of breath Priority: Primary Status: Acute (4) Tobacco abuse Priority: Secondary Status: Acute (5) Weakness Priority: Primary Status: Acute (6) Autoimmune hemolytic anemia Priority: Secondary Status: Chronic (7) COPD (chronic obstructive pulmonary disease) Priority: Secondary Status: Chronic Qualifiers: COPD type: emphysema Emphysema type: panlobular Qualified Code(s): J43.1 - Panlobular emphysema (8) IPF (idiopathic pulmonary fibrosis) Priority: Secondary Status: Chronic (9) Right femoral vein DVT Priority: Primary Status: Chronic Qualifiers: Chronicity: chronic Qualified Code(s): I82.511 - Chronic embolism and thrombosis of right femoral vein (10) Thrush, oral Priority: Primary Status: Acute - Discharge Medications Home Medications: Baclofen 20 mg PO BID PRN 07/05/15 [History] Lisinopril [Zestril] 10 mg PO DAILY 07/05/15 [History] Simvastatin [Zocor] 40 mg PO HS 07/05/15 [History] Diclofenac Sodium [Voltaren] 50 mg PO BID 10/22/16 [History] Esomeprazole Magnesium [Nexium] 40 mg PO DAILY 02/05/17 [History] Albuterol Sulfate [Albuterol Inhaler] 2 puff IH QID PRN 03/31/17 [History] Divalproex (24 HR) [Depakote ER (24 HR)] 250 mg PO DAILY 03/31/17 [History] Ferrous Gluconate 324 mg PO BID 03/31/17 [History] Aspirin 81 mg PO DAILY 05/23/17 [History] Cholecalciferol (Vitamin D3) [Vitamin D3] 5,000 unit PO DAILY 05/23/17 [History] Amitriptyline [Elavil] 25 mg PO HS 07/09/17 [History] Apixaban [Eliquis] 5 mg PO BID 07/11/17 [History] Amoxicillin [Amoxicillin] 875 mg PO BID 08/05/17 [History] Ascorbic Acid [Vitamin C] 500 mg PO DAILY 08/05/17 [History] Furosemide [Lasix] 40 mg PO DAILY 08/05/17 [History] Guaifenesin [Mucinex] 600 mg PO Q12H PRN 08/05/17 [History] L. Acidophilus/Pectin, [place] [Acidophilus Probiotic Capsule] 1 each PO BID 03/14 [History] PredniSONE [Deltasone] 20 mg PO DAILY 08/05/17 [History] Allergies/Adverse Reactions: 3 Allergy/AdvReac Type Severity Reaction Status Date / Time No Known Allergies Allergy Verified 07/22/17 14:45 Procedures/tests Complete & Pending: Procedures Performed prior 72 hours Category Date Time Status CL IVC Filter [CL] Routine Cylinder Die Machine Operator 08/08/17 13:45 Completed Date of admission: 08/05/17 22:17 Primary care physician: Heriberto Cerrato DO Consults: 08/05/17 22:41 Consult to Speech Therapy [CONS] Routine Comment: Evaluate, develop and implement POC Reason for Consult: Aspiration Risk Call Completed: No 08/05/17 22:42 Consult to Occupational Therapy [CONS] Routine Comment: Evaluate, develop and implement POC Reason for Consult: Deconditioning, Weakness Consult to Physical Therapy [CONS] Routine Comment: Evaluate, develop and implement POC Reason for Consult: Deconditioning, weakness 08/07/17 11:39 Consult to Pulmonology [CONS] Routine Consulting Provider: [facility] [place] Reason for Consult: hemoptysis Call Completed: Yes 08/08/17 09:48 Consult to Interventional Radiology [CONS] Routine Consulting Provider: Radiology Interventional [facility] Reason for Consult: Hemoptysis/continued bleeding despite bronchoscopy Call Completed: Yes 08/08/17 13:12 Consult to Vascular Surgery [CONS] Routine Consulting Provider: [facility] [place] Reason for Consult: Recent R femoral vein DVT - now with hemoptysis and Eliquis stopped Time Notified: 13:10 Call Completed: Yes 08/09/17 16:28 Consult to Early Childhood Coordinator [CONS] Routine Reason for SW Consult: PT/OT recommending SNF; patient agreeable 08/11/17 11:00 Consult to Cardiothoracic Surgery [CONS] Routine Consulting Provider: Cardiothoracic Surgery [place] Reason for Consult: hemoptysis/spoke with dr bennett Call Completed: Yes Discharging clinician: Erendira Belvins Anticipated date of discharge: 08/11/17 - Patient Status Disposition: Transfer Short-Term Hosp Condition: Fair Functional capacity at discharge: independent ambulation Overall status at discharge: patient is not back to baseline - Discharge Instructions Instructions: Chronic Obstructive Pulmonary Disease (DC), Chronic Hypertension (DC), Anemia (GEN) Follow Up With: Heriberto Cerrato DO [Primary Care Provider] - - Diet and Activity Diet: other (NPO) Interval History: The patient was seen and evaluated at bedside this morning. He is afebrile, interactive, awake and alert, and in no acute distress. Patient continues to have hemoptysis on exam Patient states that he does not feel well today. He states that he feels tired and "like I have no energy". He states that he feels like he is coughing up more blood. The patient admits shortness of breath and difficulty breathing today. The patient denies any fever, vision changes, chest pain, abdominal pain, or any weaknesses. Patient has no concerns at this time. Hospital course: Mr. Blanco is a 87 year old male with a past medical history of COPD oxygen dependent, idopathic pulmonary fibrosis, right femoral DVT on Elliquis, hypertension, hyperlipidemia, coronary artery disease, and congestive heart failure who was admitted on 08/05/2017 for hypoxic respiratory failure and hemoptysis. Patient had a new onset of hemoptysis on 08/07/2017. Pulmonology was consulted and broncoscopy was performed and the source of bleeding could not be found. IR was then consulted and per documentation, they state that bronchial artery embolization is less effective particularly given submassive symptoms. Recent anticoagulation is a likely contributing factor and recommended medical management. Patient has received two blood transfusions since his admission. Patient continues to have hemoptysis and another bronchoscopy was performed on 08/11/17. Per documentation, patient continues to have hemoptysis and active bleeding. Findings were discussed with interventional radiologist. It is then recommended that patient will transfer to another hospital for further evaluation for his hemoptysis since no intervention can be done at [facility] at this time. Patient is currently on Levaquin day 2. Patient vitals are stable and he is currently hemodynamically stable. - Time Spent with Patient Total time spent providing and/or coordinating discharge services: Greater than 30 minutes - Constitutional Vitals: Temp Pulse Resp BP Pulse Ox 97.7 F 94 18 157/74 94 08/11/17 10:47 08/11/17 10:47 08/11/17 10:47 08/11/17 10:47 08/11/17 10:47 General appearance: Present: cooperative, mild distress, A&O X 3, pleasant, answers questions appropriately - Head Head exam: Present: atraumatic - Eye Eye exam: Present: EOMI, normal appearance, PERRL - Neck Neck exam general surgery: Present: normal inspection, supple. Absent: lymphadenopathy, tenderness - Respiratory Respiratory exam: Present: decreased breath sounds. Absent: accessory muscle use, rales, respiratory distress, rhonchi, stridor, wheezes - Cardiovascular Cardiovascular exam: Present: RRR, +S1, +S2. Absent: gallop, rubs, systolic murmur - GI/Abdominal GI/Abdominal exam: Present: soft. Absent: distended, firm, guarding, tenderness - Extremities Exam Extremities exam: Present: warm, radial pulses palpable and symmetrical. Absent : calf tenderness, tenderness - Neurological Exam Neurological exam: Present: alert, CN II-XII intact, oriented X3, no focal deficits. Absent: altered, pronater drift, facial droop, speech deficit - Skin Skin exam: Present: dry, intact, pallor, warm <Pal Dowd H - Last Filed: 08/11/17 13:47> Date of Encounter: 08/11/17 Procedures/tests Complete & Pending: Procedures Performed prior 72 hours Category Date Time Status CL IVC Filter [CL] Routine Cylinder Die Machine Operator 08/08/17 13:45 Completed Date of admission: 08/05/17 22:17 Primary care physician: Heriberto Cerrato DO Consults: 08/05/17 22:41 Consult to Speech Therapy [CONS] Routine Comment: Evaluate, develop and implement POC Reason for Consult: Aspiration Risk Call Completed: No 08/05/17 22:42 Consult to Occupational Therapy [CONS] Routine Comment: Evaluate, develop and implement POC Reason for Consult: Deconditioning, Weakness Consult to Physical Therapy [CONS] Routine Comment: Evaluate, develop and implement POC Reason for Consult: Deconditioning, weakness 08/07/17 11:39 Consult to Pulmonology [CONS] Routine Consulting Provider: [facility] [place] Reason for Consult: hemoptysis Call Completed: Yes 08/08/17 09:48 Consult to Interventional Radiology [CONS] Routine Consulting Provider: Radiology Interventional [facility] Reason for Consult: Hemoptysis/continued bleeding despite bronchoscopy Call Completed: Yes 08/08/17 13:12 Consult to Vascular Surgery [CONS] Routine Consulting Provider: [facility] [place] Reason for Consult: Recent R femoral vein DVT - now with hemoptysis and Eliquis stopped Time Notified: 13:10 Call Completed: Yes 08/09/17 16:28 Consult to Early Childhood Coordinator [CONS] Routine Reason for SW Consult: PT/OT recommending SNF; patient agreeable Hospital course: Mr. Blanco is a 87 year old male - Time Spent with Patient Total time spent providing and/or coordinating discharge services: - Constitutional Vitals: Temp Pulse Resp BP Pulse Ox 97.7 F 94 18 157/74 94 08/11/17 10:47 08/11/17 10:47 08/11/17 10:47 08/11/17 10:47 08/11/17 10:47 - Attending Attestation Recurrent hemoptysis, unclear source The patient underwent a second bronchoscopy that were not able to localize the source of bleeding. Dr. Golden contacted the interventional radiology but they do not think they will be able to localize the source. The patient was explained options of staying here or being transferred to [facility] or other facility and he decided to proceed with a transfer. At this point he is stable but still bleeding. Time spent on this process 40 minutes I examined this patient and my medical decision-making was reviewed with the Resident Physician. I agree with the documented findings, disposition and treatment plan as described except to the extent set forth below.
[2017-08-11 12:27] LABS: ABG Base Excess 6 mEq/L (-2 to 3); ABG HCO3 30 mEq/L (21-27); ABG Oxygen Saturation 99 % (95-98); ABG PCO2 44 mmHg (35-45); ABG PH 7.45 pH Units (7.32-7.45); ABG PO2 121 mmHg (85-104); ABG TCO2 32 mEq/L (20-26)
--- NOTE | 2017-08-20 16:49 | Event Note ---
Date of Encounter: 08/20/17 Time of Encounter: 16:48 Information called and given to [facility] provider
== END 2017-08-11 15:28 | disposition short-term general hospital (02) | DRG 166 ==
LOC: EMEROO 15:26 → 2NENU 20:25 → SUATTDRO 22:17 → 2NENU 22:17
PROVIDERS: ADMIT Internal Medicine; ATTEND Internal Medicine
PROC: ENDOBRF (2017-08-11 09:35)